=== PATIENT | female | born 1980 | race Caucasian/White ===

== ENCOUNTER 2021-04-14 17:13 | Emergency (ER) | payer MEDICAID, SELFPAY ==
[2021-04-14 18:00] VITALS: BP 145/94; PULSE 83; RESP 15; TEMP 36.9; O2SAT 96; BMI 25.7
--- NOTE | 2021-04-14 19:48 | CTR_ITS ---
PROCEDURE INFORMATION: Exam: CT Head Without Contrast Exam date and time: 04/14/2021 7:48 PM Age: 40 years old Clinical indication: Condition or disease; Convulsions or seizures; Additional info: New onset seizure TECHNIQUE: Imaging protocol: Computed tomography of the head without contrast. Sagittal and coronal reformatted images were created and reviewed. Radiation optimization: All CT scans at this facility use at least one of these dose optimization techniques: automated exposure control; mA and/or kV adjustment per patient size (includes targeted exams where dose is matched to clinical indication); or iterative reconstruction. COMPARISON: No relevant prior studies available. RADIATION DOSE METRICS: Total DLP (mGy-cm): 780.22 FINDINGS: Brain: No acute intracranial hemorrhage. No acute infarct. No intra-axial or extra-axial masses. Augustine-white matter differentiation is preserved. No cerebral edema. No extra-axial fluid collections. No midline shift. No evidence for Chiari 1 malformation. Cerebral ventricles: No hydrocephalus. Paranasal sinuses: Visualized paranasal sinuses are clear. Mastoid air cells: Visualized mastoid air cells are clear. Orbital cavity: No acute abnormality in the visualized orbits. Bones/joints: No acute fracture. Soft tissues: The extracranial soft tissues are unremarkable. CT/CT head wo con* [id number] IMPRESSION: No acute abnormality of the brain. Radiation Dose CTDIVOL = (mGy): DLP = 780.22 (mGy-cm)
--- NOTE | 2021-04-15 00:02 | W.ED.SEIZURE ---
HPI - Seizure General: Chief Complaint: Seizure Stated Complaint: SEIZURE: NO PRIOR HX OF SEIZURE Time Seen by Provider: 04/15/21 00:02 History of Present Illness: HPI Narrative: Ms Felix Is a 40-year-old lady without significant past medical history presents emerge department due to seizure-like episode. She reports feeling shaky for a number of months now however has never had seizure. She endorses having visual changes in the more couple the ground. She does endorse a history of alcohol abuse, last drink was yesterday afternoon. She drinks about a pint a day and has realized that this is a problem for her. She has poor p.o. intake due to current nausea, she has chronic diarrhea. She also endorses some mild right upper quadrant abdominal pain. She does have a history of hepatitis C though reports negative viral load and was told that she had spontaneous clearance. She denies any pain from fall, no other significant changes health noted. No history of similar. Review of Systems General: Reports: 10 or more systems reviewed and unremarkable except in HPI and below Narrative: CONSTITUTIONAL: See HPI EYES - denies pain, denies loss of vision EARS - denies ear issues. NOSE - denies congestion or rhinorrhea. THROAT - denies sore throat or difficulty swallowing. CARDIOVASCULAR - denies chest pain and palpitations RESPIRATORY - denies shortness of breath and cough GASTROINTESTINAL -see HPI GENITOURINARY - denies dysuria or urinary frequency MUSCULOSKELETAL- denies deformity or pain SKIN - denies rashes or new changed skin lesions NEUROLOGIC -see HPI HEMATOLOGIC/LYMPHATIC - denies easy bruising or lymphadenopathy. Physical Exam Narrative: EXAM NARRATIVE: GENERAL/CONSTITUTIONAL - well-appearing. No acute distress. Eyes - PERRL, no conjunctival injection ENMT - Atraumatic external nose and ears. Moist mucous membranes NECK - supple. trachea midline CARDIOVASCULAR - regular rate and rhythm. RESPIRATORY -clear to auscultation bilaterally. No retractions or accessory muscle use. ABDOMEN/GI - Nontender/Nondistended. No tenderness to percussion or evidence of peritonitis MSK - Extremities without obvious deformity or tenderness to palpation SKIN - Warm, Dry NEURO - alert and appropriately oriented. strength and sensation intact. Moves all extremities equally. Mild symmetric bilateral tremor. PSYCH - Appropriate mood and affect Course ED course: - Patient was seen and evaluated by me at bedside - Patient placed on cardiac monitors, IV access obtained - Initial evaluation notable for no acute distress, nontoxic appearance. Patient is not tachycardic or hypertensive, mild tremor noted. -Symptom treatment ordered - Labs notable for no leukocytosis, no significant metabolic abnormality to explain his seizures. - Imaging notable for negative head CT - Upon serial reexamination after treatment the patient was improved, repeat CIWA 6. - Based on patient history, evaluation, labs, and imaging as interpreted the most likely cause of the patient's condition is alcohol withdrawal related seizure without continued withdrawal symptoms requiring hospitalization - The results of ED evaluation were discussed with the patient including prescriptions and/or symptomatic cares (if applicable) including appropriate and responsible use, followup plan, and return precautions. The patient verbalized understanding and felt safe for discharge. - Patient discharged in satisfactory condition. Vital Signs: Vital signs: Vital Signs Temperature 98.4 F 04/14/21 18:00 Pulse Rate 95 04/15/21 04:06 Respiratory Rate 17 04/15/21 04:06 Blood Pressure 129/97 04/15/21 04:06 Pulse Oximetry 100 04/15/21 04:06 MDM - Seizure Medical Records: Attestation: I reviewed the patient's medical records. Lab Data: Attestation: I reviewed the patient's lab results. Labs: Lab Results 04/15/21 04/15/21 04/15/21 Range/Units 00:41 00:41 02:08 WBC 7.8 (4.0-10.0) 10^3/ uL RBC 4.04 L (4.1-5.3) 10^6/u L Hgb 13.8 (11.5-15.3) g/dL Hct 40.7 (37.0-47.0) % MCV 100.7 H (81-99) fl MCH 34.2 H (28.0-34.0) pg MCHC 33.9 (30.0-36.0) g/dL RDW 13.5 (12.1-15.1) % Plt Count 189 (130-400) 10^3/c mm MPV 10.7 H (7.4-10.4) fL Neut % (Auto) 80.0 % Lymph % (Auto) 10.3 % [place] % (Auto) 8.8 % Eos % (Auto) 0.1 % Baso % (Auto) 0.5 % Neut # (Auto) 6.26 (1.8-7.7) 10^3/u L Lymph # (Auto) 0.8 (0.8-4.8) 10^3/u L [place] # (Auto) 0.7 (0.2-0.9) 10^3/u L Eos # (Auto) 0.0 (0.0-0.8) 10^3/u L Baso # (Auto) 0.0 (0.0-0.1) 10^3/u L Nucleated RBC % (a uto) 0 % Nucleated RBCs # 0.0 /100WBC Sodium 136 (136-145) mmol/L Potassium 3.9 (3.5-5.1) mmol/L Chloride 96 L (98-107) mmol/L Carbon Dioxide 24 (22-29) mmol/L Anion Gap 19.9 H (5-19) BUN 6 (6-20) mg/dL Creatinine 0.4 L (0.5-0.9) mg/dL GFR Calculation 175.9 H (90-130) mL/min Glucose 83 (65-115) mg/dL Calculated Osmolal ity 279 L (285-295) mOsm/k g Calcium 9.1 (8.5-10.5) mg/dL Magnesium 1.9 (1.7-2.3) mg/dL Total Bilirubin 0.7 (0.15-1.2) mg/dL AST 139 H (0-32) U/L ALT 112 H (0-33) U/L Alkaline Phosphata se 62 (35-105) IU/L Total Protein 7.3 (6.6-8.7) g/dL Albumin 4.4 (3.5-5.2) g/dL Globulin 2.9 (1.3-4.6) g/dL TSH 2.65 (0.27-4.20) uIU/ mL HCG, Qual Negative (Negative) Urine Color (Yellow) Urine Appearance (CLEAR) Urine pH (5-7) Ur Specific Gravit y (1.005-1.030) Urine Protein (Negative) Urine Glucose (UA) (Normal) Urine Ketones (Negative) Urine Blood (Negative) Urine Nitrate (Negative) Urine Bilirubin (Negative) Urine Urobilinogen (Negative) mg/dL Ur Leukocyte Luz ase (Negative) Urine RBC (0-2) /hpf Urine WBC (0-5) /hpf Ur Squamous Epith Cells (0-5) /hpf Amorphous Sediment Urine Bacteria (NONE) /hpf Urine Mucus /hpf 04/15/21 Range/Units 02:08 WBC (4.0-10.0) 10^3/ uL RBC (4.1-5.3) 10^6/u L Hgb (11.5-15.3) g/dL Hct (37.0-47.0) % MCV (81-99) fl MCH (28.0-34.0) pg MCHC (30.0-36.0) g/dL RDW (12.1-15.1) % Plt Count (130-400) 10^3/c mm MPV (7.4-10.4) fL Neut % (Auto) % Lymph % (Auto) % [place] % (Auto) % Eos % (Auto) % Baso % (Auto) % Neut # (Auto) (1.8-7.7) 10^3/u L Lymph # (Auto) (0.8-4.8) 10^3/u L [place] # (Auto) (0.2-0.9) 10^3/u L Eos # (Auto) (0.0-0.8) 10^3/u L Baso # (Auto) (0.0-0.1) 10^3/u L Nucleated RBC % (a uto) % Nucleated RBCs # /100WBC Sodium (136-145) mmol/L Potassium (3.5-5.1) mmol/L Chloride (98-107) mmol/L Carbon Dioxide (22-29) mmol/L Anion Gap (5-19) BUN (6-20) mg/dL Creatinine (0.5-0.9) mg/dL GFR Calculation (90-130) mL/min Glucose (65-115) mg/dL Calculated Osmolal ity (285-295) mOsm/k g Calcium (8.5-10.5) mg/dL Magnesium (1.7-2.3) mg/dL Total Bilirubin (0.15-1.2) mg/dL AST (0-32) U/L ALT (0-33) U/L Alkaline Phosphata se (35-105) IU/L Total Protein (6.6-8.7) g/dL Albumin (3.5-5.2) g/dL Globulin (1.3-4.6) g/dL TSH (0.27-4.20) uIU/ mL HCG, Qual (Negative) Urine Color Yellow (Yellow) Urine Appearance Clear (CLEAR) Urine pH 7 (5-7) Ur Specific Gravit y 1.010 (1.005-1.030) Urine Protein Trace (Negative) Urine Glucose (UA) Norm (Normal) Urine Ketones 2+ H (Negative) Urine Blood Neg (Negative) Urine Nitrate Negative (Negative) Urine Bilirubin Neg (Negative) Urine Urobilinogen 1 H (Negative) mg/dL Ur Leukocyte Luz ase Negative (Negative) Urine RBC 0-4 H (0-2) /hpf Urine WBC 0-4 H (0-5) /hpf Ur Squamous Epith Cells 5-10 H (0-5) /hpf Amorphous Sediment Not Reportable Urine Bacteria Trace (NONE) /hpf Urine Mucus 2+ /hpf Discharge Plan Discharge Patient Disposition: Home Clinical Impression: Seizure, Alcohol abuse Condition: Stable Prescriptions: New chlordiazepoxide HCl 25 mg capsule See Rx Instructions .ROUTE .COMPLEX Qty: 15 RF: 0 Discharge Orders: Discharge ED (Routine); Ordered 04/15/21 Ordered By: Linus Kent Discharge Diet: Usual diet Discharge Activity: Resume usual activity Patient Instructions: Alcohol Withdrawal (ED), New-Onset Seizure in Adults (ED) Activity Restrictions/Additional Instructions: Thank you for visiting the emergency department. You were seen and evaluated for new onset seizure. Based on clinical history the most likely cause is related to alcohol withdrawal. Alcohol abuse is a complex problem. You will be given a prescription for medications to help with your symptoms. Please follow-up with your primary care provider. Please avoid further alcohol use. Please do not perform any dangerous activity including driving, swimming, cooking over flames, climbing tall objects, or anything else that would put you at risk if he were to have another seizure. Please return to the emergency department for anything that you are concerned about and feel needs emergency department evaluation. Coding Level of Care Code ED Topper Press Operator Automatic for Tracey Rodriguez
[2021-04-15] MEDS: LORazepam 2 mg/mL INJ 1 mL 1 MG IVP (00:43)
[2021-04-15] MEDS: sodium chloride 0.9% 1,000 ML 999 ML IV (00:45)
[2021-04-15 00:47] VITALS: BP 128/89; PULSE 87; RESP 18; O2SAT 98
[2021-04-15 01:04] LABS: Basophils % 0.5 %; Eosinophils % 0.1 %; Hematocrit 40.7 % (37.0-47.0); Hemoglobin 13.8 g/dL (11.5-15.3); Lymphocytes # 0.8 10^3/uL (0.8-4.8); Lymphocytes % 10.3 %; Mean Corpuscular HGB Conc 33.9 g/dL (30.0-36.0); Mean Corpuscular Hemoglobin 34.2 pg (28.0-34.0); Mean Corpuscular Volume 100.7 fl (81-99); Mean Platelet Volume 10.7 fL (7.4-10.4); Monocytes # 0.7 10^3/uL (0.2-0.9); Monocytes % 8.8 %; Neutrophils # 6.26 10^3/uL (1.8-7.7); Nucleated Red Blood Cells % 0 %; Platelet Count 189 10^3/cmm (130-400); Red Blood Count 4.04 10^6/uL (4.1-5.3); Red Cell Distribution Width 13.5 % (12.1-15.1); White Blood Count 7.8 10^3/uL (4.0-10.0)
[2021-04-15 01:34] LABS: Alanine Aminotransferase 112 U/L (0-33); Albumin Level 4.4 g/dL (3.5-5.2); Alkaline Phosphatase 62 IU/L (35-105); Aspartate Amino Transferase 139 U/L (0-32); Blood Urea Nitrogen 6 mg/dL (6-20); Calcium 9.1 mg/dL (8.5-10.5); Carbon Dioxide 24 mmol/L (22-29); Chloride 96 mmol/L (98-107); Globulin 2.9 g/dL (1.3-4.6); Glomerular Filtration Rate 175.9 mL/min (90-130); Glucose 83 mg/dL (65-115); Magnesium 1.9 mg/dL (1.7-2.3); Osmolality Calculated 279 mOsm/kg (285-295); Sodium 136 mmol/L (136-145); Thyroid Stimulating Hormone 2.65 uIU/mL (0.27-4.20); Total Bilirubin 0.7 mg/dL (0.15-1.2); Total Protein 7.3 g/dL (6.6-8.7)
[2021-04-15 01:41] LABS: Anion Gap 19.9 (5-19); Potassium 3.9 mmol/L (3.5-5.1)
[2021-04-15 02:17] LABS: HCG Qualitative Urine. Negative (Negative); Urine Appearance Clear (CLEAR); Urine Color Yellow (Yellow); pH Urine 7 (5-7)
[2021-04-15 02:18] LABS: Add Urine Microscopic? YES; Bilirubin Urine Neg (Negative); Blood Urine Neg (Negative); Glucose Urine UA Norm (Normal); Ketones Urine 2+ (Negative); Leukocyte Esterase Urine Negative (Negative); Nitrate Urine Negative (Negative); Protein Urine Trace (Negative); Urobilinogen Urine 1 mg/dL (Negative)
[2021-04-15 02:36] LABS: Add Urine Culture? No; Bacteria Urine TRACE /hpf; Mucus Urine 2+ /hpf; RBC Urine 0-4 /hpf (0-2); WBC Urine 0-4 /hpf (0-5)
[2021-04-15] MEDS: folic acid 1 MG, multivitamin inj 10 ML, thiamine 100 MG in sodium chloride 0.9% 1,000 ML 252.8 MG IV (02:57)
[2021-04-15 03:01] VITALS: BP 129/80; PULSE 81; RESP 17; O2SAT 98
[2021-04-15 04:06] VITALS: BP 129/97; PULSE 95; RESP 17; O2SAT 100
== END 2021-04-15 04:06 | disposition home or self-care (01) ==
PROVIDERS: Emergency Provider Emergency Medicine
DX: R56.9 Unspecified convulsions (principal); F10.10 Alcohol abuse, uncomplicated
CPT/HCPCS: 70450; 80053; 81001; 81025; 83735; 84443; 85025; 96361; 96374; 99284; J2060; J3411; J3490; J7030

== ENCOUNTER 2021-11-26 20:34 | Emergency (ER) | payer MEDICAID, SELFPAY ==
[2021-11-26 20:20] VITALS: BP 107/48; PULSE 67; RESP 16; TEMP 36.7; O2SAT 100; BMI 24.0
--- NOTE | 2021-11-26 20:22 | ED_ITS ---
HPI - Allergic Reaction General: Chief complaint: Allergic Reaction Stated complaint: allergic rxn History of Present Illness: HPI narrative: Ms Felix is a 41-year-old lady without significant past medical history presents to the emergency department due to allergic reaction/anaphylaxis. She reports being at her baseline health the past few days. She does not know any specific exposure other than possible insect bite. Earlier this afternoon she noticed a small red bite on her leg. She subsequently developed spreading of the small bites followed by hives which were itchy and spread about her body. Additionally she felt some shortness of breath and generalized malaise. She went to stand and had syncope. EMS found the patient with signs consistent with anaphylaxis including low blood pressure and new oxygen requirement. She was administered Benadryl, epinephrine, and IV fluids with improvement in symptoms. Symptom intensity is currently mild but was severe and maximal. She denies history of anaphylaxis/severe allergic reaction in the past. No new environmental exposures otherwise. No other specific changes in health, exacerbating, or alleviating factors identified. Onset (ago): hour(s) Exposure: unknown Treatment prior to arrival: benadryl, epinephrine and IV fluids Review of Systems General: Reports: 10 or more systems reviewed and unremarkable except in HPI and below PFSH ED PFSH: Medical History No significant past medical history Surgical History No significant past surgical history Social History Smoking and tobacco status: current every day smoker Physical Exam Const: COMMON NORMALS: alert GENERAL APPEARANCE: cooperative, well developed and ill appearing (mildly); not in distress HENMT: COMMON NORMALS: normocephalic and atraumatic HEAD & SCALP: normocephalic and atraumatic THROAT: posterior oropharynx normal Eye: COMMON NORMALS: conjunctivae normal CONJUNCTIVA: Yes conjunctivae normal SCLERA: sclerae normal Neck/C-Spine: COMMON NORMALS: supple GENERAL: Yes trachea midline Resp: COMMON NORMALS: normal respiratory effort EFFORT & INSPECTION: Yes able to speak in complete sentences AUSCULTATION: diminished lung sounds (mildly) Cardio: COMMON NORMALS: regular rate and regular rhythm RATE: regular rate RHYTHM: regular rhythm GI: COMMON NORMALS: Soft to palpation PALPATION: Yes Soft to palpation and No Tenderness to palpation present (GI) PERCUSSION: normal to percussion Extremity: GENERAL: Yes normal exam except as noted and No edema Neuro: COMMON NORMALS: moves all extremities SENSORIUM/ORIENTATION: Yes alert and No Orientation impaired Psych: COMMON NORMALS: mental status grossly normal and Normal thought process present THOUGHT PROCESS: Normal thought process present Skin: COMMON NORMALS: no rashes or lesions noted GENERAL SKIN EXAM: no rashes or lesions noted Course ED course: - Patient was seen and evaluated by me at bedside - Patient placed on cardiac monitors, IV access obtained - Initial evaluation notable for exam as above, improved - additional allergic rxn treatment ordered - Imaging notable for no lobar consolidation or pneumothorax - Upon serial reexamination after treatment the patient was improved. She did have fairly significant somnolence related to Benadryl and given reported history of fall secondary to likely hypotension a head CT was ordered which was negative for acute traumatic injury. - Patient observed without recurrance or worsening of symptoms - Based on patient history, evaluation, and testing as interpreted the most likely cause of the patient's condition is anaphylaxis - The results of ED evaluation were discussed with the patient including prescriptions and/or symptomatic cares (if applicable) including appropriate and responsible use, followup plan, and return precautions. The patient verbalized understanding and felt safe for discharge. - Patient discharged in satisfactory condition. Note: Click bubbles or prepopulated berg in note writing are used for assistance with data collection and billing and are inherently more limited than narrative and other text portions of this note. Please use narrative for additional clinical history and defer to narrative/free test for any case of contradictory information. If information appears in only free text or click bubble it should be considered present or absent as reported. Please contact note policy writer sales for clarifications of clinical information or contradictory information. MDM is a brief summary, contradictory or erroneous seeming information should be clarified and full note should be reviewed. Vital Signs: Vital signs: Vital Signs Temperature 98.0 F 11/26/21 20:20 Pulse Rate 75 11/27/21 00:16 Respiratory Rate 16 11/27/21 00:16 Blood Pressure 97/58 11/27/21 00:16 Pulse Oximetry 97 11/27/21 00:16 MDM - Allergic Reaction Medical Decision Making 41-year-old lady without significant history presenting due to anaphylaxis patient was improved from EMS treatment. No recurrence during ED observation. Family will watch closely and satisfactory for discharge with strict return precautions. Medical Records I reviewed the patient's medical records. Lab Data I reviewed the patient's lab results. Radiology Impressions Chest X-Ray 11/26/21 20:41 IMPRESSION: No acute abnormality demonstrated. Head CT 11/26/21 22:52 IMPRESSION: No evidence of acute intracranial abnormality. Discharge Plan Discharge Patient Disposition: Home Clinical Impression: Anaphylaxis Prescriptions: New EpiPen 0.3 mg/0.3 mL auto-injector 0.3 mg IM Q10M PRN (Reason: anaphylaxis) Qty: 2 2RF Rx Instructions: for 2 doses Benadryl 25 mg capsule 50 mg PO Q8H PRN (Reason: allergic reaction) Qty: 30 0RF No Action chlordiazepoxide HCl 25 mg capsule See Rx Instructions .ROUTE .COMPLEX Qty: 15 0RF Rx Instructions: Day 1: 50mg every 6 hrs Day 2: 25mg every 6 hrs Day 3: 25mg every 12 hrs Day 4: 25mg at night Discharge Orders: Discharge ED (Routine); Ordered 11/26/21 Ordered By: Linus Kent Discharge Diet: Usual diet Discharge Activity: Resume usual activity Patient Instructions: Epinephrine (By injection), Anaphylaxis (ED) Activity Restrictions/Additional Instructions: Thank you for visiting the emergency department. You were seen and evaluated for anaphylaxis. The exact cause of your allergic reaction is unclear. As discussed, you will be given a prescription for steroids and Pepcid, please take these as directed, if you still have allergy symptoms on top of this you may use Benadryl as needed. I will also prescribe an EpiPen autoinjector, please use this for anaphylaxis. Anaphylaxis is typically defined as severe allergic reaction involving more than 1 system or rapidly/severe spreading systems. Examples would be difficulty breathing as well as rash or nausea and vomiting with rash or a combination of multiple symptoms. Please follow-up with your primary care provider. Return to the emergency department for recurrent allergic reactions, worsening symptoms, or anything else that you are concerned about and feel needs emergency department evaluation. Coding Level of Care Code ED Senior Biostatistician for Tracey Rodriguez
[2021-11-26 20:34] VITALS: BP 106/58; PULSE 81; RESP 17; O2SAT 98
--- NOTE | 2021-11-26 20:41 | XRR_ITS ---
PROCEDURE INFORMATION: Exam: XR Chest Exam date and time: 11/26/2021 8:56 PM Age: 41 years old Clinical indication: Shortness of breath; Additional info: SOB TECHNIQUE: Imaging protocol: XR of the chest. Views: 1 view. COMPARISON: CR Scoliosis 4-5 views [id number] 08/30/2018 11:59 AM FINDINGS: Lungs: No significant or acute findings. No consolidation. Pleural spaces: No significant costophrenic angle blunting. No pneumothorax. Heart/Mediastinum: Heart size is normal. Bones/joints: Mild S-shaped thoracolumbar scoliosis. XR/XR chest 1V portable [id number] IMPRESSION: No acute abnormality demonstrated.
[2021-11-26] MEDS: famotidine 20 mg/2 mL INJ 40 MG IVP (21:08)
[2021-11-26 21:12] VITALS: BP 105/49; PULSE 74; RESP 15; O2SAT 96
--- NOTE | 2021-11-26 22:52 | CTR_ITS ---
PROCEDURE INFORMATION: Exam: CT Head Without Contrast Exam date and time: 11/26/2021 11:08 PM Age: 41 years old Clinical indication: Syncope and collapse; Patient HX: Syncopal episode. ; Additional info: Syncope, fell and hit face TECHNIQUE: Imaging protocol: Computed tomography of the head without contrast. Radiation optimization: All CT scans at this facility use at least one of these dose optimization techniques: automated exposure control; mA and/or kV adjustment per patient size (includes targeted exams where dose is matched to clinical indication); or iterative reconstruction. COMPARISON: CT head wo con* [id number] 04/14/2021 8:07 PM RADIATION DOSE METRICS: Total DLP (mGy-cm): 809.31 FINDINGS: Brain: No acute abnormality. No edema or mass effect. No hemorrhage. Cerebral ventricles: No acute abnormality. No significant ventriculomegaly. Paranasal sinuses: No significant or acute abnormality. No air-fluid levels. Mastoid air cells: No acute abnormality. No significant mastoid effusion. Bones/joints: No acute osseous abnormality. No acute fracture. Soft tissues: No significant soft tissue abnormalities. CT/CT head wo con* [id number] IMPRESSION: No evidence of acute intracranial abnormality.
[2021-11-26 22:56] VITALS: PULSE 68; RESP 18; O2SAT 96
[2021-11-26] MEDS: ipratropium-albuterol 3 mL Neb INHALATION (22:56)
[2021-11-26 22:59] VITALS: PULSE 69
[2021-11-26 23:24] VITALS: BP 99/51; PULSE 62; RESP 15; O2SAT 95
[2021-11-27 00:16] VITALS: BP 97/58; PULSE 75; RESP 16; O2SAT 97
== END 2021-11-27 00:32 | disposition home or self-care (01) ==
PROVIDERS: Emergency Provider Emergency Medicine
DX: T78.2XXA Anaphylactic shock, unspecified, initial encounter (principal); F17.210 Nicotine dependence, cigarettes, uncomplicated
CPT/HCPCS: 70450; 71045; 94640; 96374; 96375; 99284; J2930; J3490

== ENCOUNTER 2022-07-25 13:25 | Outpatient (CLI) | payer MEDICAID, SELFPAY ==
--- NOTE | 2022-07-25 | USCV_ITS ---
Kailyn Felix Age: 42 Gender: F : 1980 Exam Date: 07/25/2022 14:45 Ordering Phys: Arsalan Paul MD Technologist: Exam Location: [facility] [place] Indication: pain in legs RIGHT LEFT Brachial 125.00 mmHg Brachial 121.00 mmHg Pressure (mmHg) Waveform Pressure (mmHg) Waveform 125.00 GLASS OR MIRROR INSPECTOR 140.00 135.00 DPA 1.04 1.34 Ankle/Brachial Index 1.12 168.00 Pre-Exercise Toe Pressure 118.00 FINDINGS Resting JEREMY of 1.34 on the right and 1.12 on the left CONCLUSIONS Normal resting ABIs bilaterally No significant arterial obstruction, based on the above findings. Dr Flaco Cano MD [facility] (Electronically Signed) Final Date: 28 July 2022 10:19 S
== END 2022-07-25 13:26 | disposition home or self-care (01) ==
LOC: RAD 13:26
PROVIDERS: PCP Family Medicine; Visit Provider Family Medicine
DX: M79.604 Pain in right leg (principal); M79.605 Pain in left leg
CPT/HCPCS: 93922

== ENCOUNTER → 2023-02-17 11:12 | Outpatient (BNVA) | payer MEDICAID, SELFPAY | PROVIDERS: PCP Nurse Practitioner Family; Visit Provider Nurse Practitioner Family | DX: R56.9 Unspecified convulsions (principal) | CPT/HCPCS: 80053; 80061; 84443; 85025 ==

== ENCOUNTER 2023-02-23 08:48 | Outpatient (CLI) | payer MEDICAID, SELFPAY ==
--- NOTE | 2023-02-23 08:57 | MR_ITS ---
WS: [id number] MRI RIGHT KNEE HISTORY: PATELLOFEMORAL STRESS SYNDROME COMPARISON: None available. Anterior cruciate ligament: Intact. Posterior cruciate ligament: Intact. Medial collateral ligament: Intact. Posterior lateral corner structures: Intact. Medial menisci: Intact. Normal signal, size and shape. Lateral meniscus: Intact. Normal signal, size and shape. Extensor mechanism: Distal quadriceps tendon and patellar tendons are intact. Fluid and soft tissue: No joint effusion. Small Benitez's cyst. Osseous and articular structures: Patellofemoral compartment: Mild chondromalacia patella, greatest involving the medial patella. There is near small complete full-thickness defect in the cartilage over the medial patellar facet. No mar row edema. Medial compartment: No significant narrowing or loss of cartilage. Very minimal hypertrophic osteophy omari along the joint line. Lateral compartment: No significant narrowing or loss of cartilage. Minimal hypertrophic osteophytes at the joint line. Very small, slightly lobulated cystic mass associated with the popliteus tendon. May represent a smal l ganglion measuring 12 mm versus popliteal cyst. MR/MR knee RT wo con* [id number] IMPRESSION: 1. No significant osteoarthritic changes involving the joint spaces. 2. Small Benitez's cyst and small popliteus tendon ganglion versus cyst. 3. Mild chondromalacia patella, greatest along the medial facet.
== END 2023-02-23 08:49 | disposition home or self-care (01) ==
PROVIDERS: PCP Nurse Practitioner Family; Visit Provider Family Medicine
DX: M22.2X1 Patellofemoral disorders, right knee (principal); M71.21 Synovial cyst of popliteal space [Baker], right knee; M22.41 Chondromalacia patellae, right knee
CPT/HCPCS: 73721

== ENCOUNTER → 2023-02-27 11:17 | Outpatient (BNVA) | payer MEDICAID, SELFPAY | PROVIDERS: PCP Nurse Practitioner Family; Visit Provider Nurse Practitioner Family | DX: R39.9 Unspecified symptoms and signs involving the genitourinary system (principal) | CPT/HCPCS: 81003; 87077; 87086; 87184 ==

== ENCOUNTER → 2023-03-19 08:57 | Outpatient (BNVA) | payer MEDICAID, SELFPAY | PROVIDERS: PCP Nurse Practitioner Family; Visit Provider Nurse Practitioner Family | DX: N39.0 Urinary tract infection, site not specified (principal); R79.89 Other specified abnormal findings of blood chemistry | CPT/HCPCS: 80053; 81000; 85025 ==

== ENCOUNTER → 2023-03-26 11:48 | Outpatient (BNVA) | payer MEDICAID, SELFPAY | PROVIDERS: PCP Nurse Practitioner Family; Visit Provider Nurse Practitioner Family | DX: R79.89 Other specified abnormal findings of blood chemistry (principal) | CPT/HCPCS: 86705; 86706; 86709; 86803; 87340; 87522; 87902 ==

== ENCOUNTER → 2023-04-01 10:42 | Outpatient (BNVA) | payer MEDICAID, SELFPAY | PROVIDERS: PCP Nurse Practitioner Family; Referring Provider Nurse Practitioner Family; Visit Provider Specialist | DX: M25.561 Pain in right knee (principal); M21.70 Unequal limb length (acquired), unspecified site; M41.9 Scoliosis, unspecified | CPT/HCPCS: 73560; 73565 ==

== ENCOUNTER 2023-04-03 06:01 | Outpatient (CLI) | payer MEDICAID, SELFPAY ==
--- NOTE | 2023-04-03 06:15 | US_ITS ---
WS: [id number] RIGHT UPPER QUADRANT ULTRASOUND HISTORY: Abnormal blood work. COMPARISON: None available. Liver: 15.0 cm in length. Normal size liver and echogenicity. No bile duct dilatation or mass. Portal Vein: Normal hepatopetal flow with monophasic waveform. Gallbladder: Normally distended gallbladder with no stones or wall thickening. CBD: 0.5 cm Pancreas: Normal size and echogenicity. Right kidney: 10.4 cm in length. Normal size and echogenicity. No hydronephrosis or mass. Aorta and IVC: Unremarkable abdominal aorta and IVC. No ascites. IMPRESSION: Normal RIGHT upper quadrant ultrasound.
== END 2023-04-03 06:02 | disposition home or self-care (01) ==
LOC: RAD 06:02
PROVIDERS: PCP Nurse Practitioner Family; Visit Provider Nurse Practitioner Family
DX: R79.89 Other specified abnormal findings of blood chemistry (principal)
CPT/HCPCS: 76705

== ENCOUNTER 2023-06-16 09:50 | Outpatient (CLI) | payer MEDICAID, SELFPAY ==
--- NOTE | 2023-06-16 10:15 | MR_ITS ---
WS: [id number] MRI BRAIN WITH AND WITHOUT CONTRAST HISTORY: R56.9 - Unspecified convulsions COMPARISON: Noncontrast CT head 11/26/2021. TECHNIQUE: Multiplanar imaging performed through the brain with MultiHance 14 ml's IV. Significant motion artifact. No acute infarcts are seen. Augustine-white matter differentiation is well preserved. Normal bilateral hip pocampal formations. Mild cerebral atrophy. No susceptibility artifacts or prior lacunar infarcts. Ventricles and extra-axial spaces are normal. Clivus and pituitary gland are normal. Visualized posterior fossa and brainstem are also normal. Postcontrast images are negative for masses or vascular malformations. Dural venous sinuses are normal. Paranasal sinuses: Large lobulated mucous retention cyst in the RIGHT maxillary sinus. No air-fluid l evels. Mastoid air cells: Normal. Calvarium and scalp: Normal. IMPRESSION: 1. No acute infarct or enhancing masses. 2. Mild bilateral cerebral atrophy and hippocampal formation atrophy. 3. No prior infarcts.
[2023-06-16] MEDS: gadobenate dimeglumine 20 mL vial IV (11:00)
== END 2023-06-16 09:51 | disposition home or self-care (01) ==
LOC: RAD 09:50
PROVIDERS: PCP Nurse Practitioner Family; Visit Provider Psychiatry & Neurology Neurology
DX: R56.9 Unspecified convulsions (principal)
CPT/HCPCS: 70553; A9577

== ENCOUNTER 2023-07-14 08:05 | Outpatient (CLI) | payer MEDICAID, SELFPAY ==
--- NOTE | 2023-07-14 08:12 | XR_ITS ---
WS: [id number] Exam: XR bone length study [id number] Date/Time of Exam: 07/14/2023 8:28 AM Reason For Exam: leg length discrepency Bilateral leg length approximately 81 cm. Apparent leg length discrepancy probably due to advanced de generation of the RIGHT hip joint with [id number]. This causes pelvic tilt with the RIGHT side lowe r than the LEFT. There is also considerable lateral subluxation of the RIGHT femoral head from the ac etabulum which may also account for perceived leg length discrepancy. IMPRESSION: 1. No significant leg length discrepancy identified. Both lower extremities measured from the hip to the ankle are about 81 cm in length. 2. Perceived leg length discrepancy likely due to degeneration of the RIGHT hip. See above discussion .
== END 2023-07-14 08:06 | disposition home or self-care (01) ==
LOC: RAD 08:06
PROVIDERS: PCP Nurse Practitioner Family; Visit Provider Specialist
DX: M21.70 Unequal limb length (acquired), unspecified site (principal); M16.11 Unilateral primary osteoarthritis, right hip
CPT/HCPCS: 77073

== ENCOUNTER → 2023-09-02 17:51 | Outpatient (BNVA) | payer MEDICAID, SELFPAY | PROVIDERS: PCP Nurse Practitioner Family; Visit Provider Family Medicine | DX: J02.9 Acute pharyngitis, unspecified (principal) | CPT/HCPCS: 87071; 87880 ==

== ENCOUNTER → 2023-09-21 12:48 | Outpatient (BNVA) | payer MEDICAID, SELFPAY | PROVIDERS: PCP Nurse Practitioner Family; Visit Provider Nurse Practitioner Family | DX: J02.9 Acute pharyngitis, unspecified (principal) | CPT/HCPCS: 87880 ==

== ENCOUNTER → 2023-10-08 09:53 | Outpatient (BNVA) | payer MEDICAID, SELFPAY | PROVIDERS: PCP Nurse Practitioner Family; Visit Provider Nurse Practitioner | DX: M16.11 Unilateral primary osteoarthritis, right hip (principal) | CPT/HCPCS: 73502 ==

== ENCOUNTER → 2023-10-19 10:21 | Outpatient (BNVA) | payer MEDICAID, SELFPAY | PROVIDERS: PCP Nurse Practitioner Family; Visit Provider Nurse Practitioner Family | DX: Z01.818 Encounter for other preprocedural examination (principal); R05.9 Cough, unspecified | CPT/HCPCS: 71046; 80053; 81000; 85025 ==

== ENCOUNTER → 2023-11-17 14:56 | Outpatient (BNVA) | payer MEDICAID, SELFPAY | PROVIDERS: PCP Nurse Practitioner Family; Visit Provider Family Medicine | DX: Z01.818 Encounter for other preprocedural examination (principal) | CPT/HCPCS: 80053; 81003; 85025 ==

== ENCOUNTER 2023-11-26 14:40 | Inpatient (IN) | payer MEDICAID, SELFPAY ==
[2023-11-26] VITALS (18 sets, daily range): BP systolic 120–164; BP diastolic 77–125; PULSE 73–104; RESP 11–20; TEMP 36.1–36.8; O2SAT 92–100; BMI 24.0; BMI 25.9
[2023-11-26] MEDS: acetaminophen 1,000 MG/100 ML PIGGYBACK 400 MG IV ×3 (09:36→21:51)
--- NOTE | 2023-11-26 09:37 | W.PM.OPSUD ---
Surgery/Procedure H&P Update DATE OF PROCEDURE: November 26, 2023 DATE H&P PERFORMED: 11/17/23 H&P UPDATE INFORMATION: I have reviewed H&P completed within last 30 days, I have examined patient prior to procedure, No changes to prior documentation and H&P is in [facility] EMR on date indicated PLANNED PROCEDURE: Operation Date: 11/26/23 10:35 Proposed Procedures p Total Hip Arthroplasty(Right) - Sonal Crook MD Related Problem List Diagnoses (1) Primary osteoarthritis of right hip:
[2023-11-26] MEDS: sodium chloride 0.9% 1,000 ML 30 ML IV (09:41)
[2023-11-26] MEDS: gabapentin 300 mg Capsule PO (09:41)
[2023-11-26] MEDS: CELEcoxib 200 mg Capsule 400 MG PO (09:41)
--- NOTE | 2023-11-26 10:01 | ANES.PREANE2 ---
Pre-Anesthetic Assessment Height/Weight: Height 1.63 m Weight 63.503 kg O2 Del Method Room Air 11/26/23 09:15 Operation Date: 11/26/23 10:35 Proposed Procedures p Total Hip Arthroplasty(Right) - Sonal Crook MD Familial anesthetic complications: none Was Beta Mirella taken within 24 hours: N/A Was Clonidine taken within 24 hours: N/A Last intake: Intake Last Liquid Date 11/25/23 Last Liquid Time 23:55 Last Solid Date 11/25/23 Last Solid Time 12:00 Social Tobacco and No alcohol Exam alert, oriented x 3, clear to auscultation bilaterally and regular rate & rhythm Airway Mallampati: Class I Dentition: chipped and caps CV/HEM Hypertension GI Gastroesophageal Reflux Disease Metabolic Hyperlipidemia Neuropsych Seizure Anesthetic Plan ASA status: 3 Anesthesia: Regional (specify below) Risk of > 500 ml blood loss (7ml/kg in children): Yes, adequate IV access and fluids planned Medications/Allergies Home Medications Medication Instructions Recorded Confirmed Last Taken Type epinephrine 0.3 mg/0.3 mL 0.3 mg (0.3 mL) IM Q10M PRN 11/26/21 11/25/23 Unknown Rx injection, auto-injector (EpiPen) anaphylaxis #2 ea fluticasone propionate 50 1 spray intranasal DAILY 02/17/23 11/25/23 11/25/23 05:00 History mcg/actuation nasal spray,suspension omeprazole 20 mg capsule,delayed 20 mg PO BID #60 caps 02/27/23 11/25/23 11/25/23 05:00 Rx release albuterol sulfate 90 mcg/actuation 2 puff inhalation Q6H #18 grams 03/26/23 11/25/23 Unknown Rx aerosol inhaler (Ventolin HFA) azelastine 137 mcg (0.1 %) nasal 1 spray intranasal DAILY 07/15/23 11/25/23 11/25/23 05:00 History spray aerosol atorvastatin 10 mg tablet 10 mg PO DAILY #30 tabs 09/02/23 11/25/23 11/24/23 05:00 Rx diazepam 2 mg tablet 2 mg PO BID PRN anxiety #30 tabs 09/02/23 11/25/23 Unknown Rx lisinopril 10 mg tablet 10 mg PO DAILY #30 tabs 09/02/23 11/25/23 11/25/23 05:00 Rx cetirizine 10 mg disintegrating 10 mg PO DAILY 09/17/23 11/25/23 11/25/23 05:00 History tablet sulfamethoxazole 800 1 tab PO BID 3 days #6 tabs 11/19/23 11/25/23 11/25/23 05:00 Rx mg-trimethoprim 160 mg tablet (Bactrim DS) escitalopram oxalate 20 mg tablet 10 mg PO DAILY 11/25/23 11/25/23 11/25/23 05:00 History Allergies Allergy/AdvReac Type Severity Reaction Status Date / Time No Known Allergies Allergy Verified 11/25/23 09:32 Current Medications Generic Name Dose Route Start Last Admin Trade Name Freq PRN Reason Stop Dose Admin Sodium Chloride 1,000 mls @ 30 mls/hr 11/26/23 09:15 11/26/23 09:41 Sodium Chloride 0.9% IV 11/27/23 09:14 30 mls/hr .Q24H LEXII Administration PFSH Anesthesia Medical History Encounter for pre-operative cardiovascular clearance Anxiety and depression GERD (gastroesophageal reflux disease) Hypertension Seizures Surgical History No significant past surgical history Social History Smoking and tobacco/nicotine status: current every day tobacco/nicotine user Alcohol intake: current Alcohol intake frequency: few times a month Substance/Drug Use: never Data Anesthesia Cardiac Studies: No Data to Display
[2023-11-26 10:02] LABS: OR HCG Qualitative Urine Negative (Negative)
[2023-11-26] MEDS: ceFAZolin 2,000 MG in sodium chloride 0.9% (plus) 50 ML 100 MG IV ×2 (10:11→17:55)
[2023-11-26] MEDS: tranexamic acid 1,000 mg/10mL SDV 1000 MG IV (10:45)
[2023-11-26] MEDS: ceFAZolin 1,000 mg SDV 1000 MG IRRIGATION (11:01)
[2023-11-26] MEDS: vancomycin 1,000 MG SDV 1000 MG XX (11:03)
--- NOTE | 2023-11-26 13:29 | XRR_ITS ---
PROCEDURE INFORMATION: Exam: XR Pelvis Exam date and time: 11/26/2023 1:40 PM Age: 43 years old Clinical indication: Device placement; Other: Osvaldo; Prior surgery; Surgery date: Post-operative (0-2 days); Additional info: S/P osvaldo, low ap pelvis TECHNIQUE: Imaging protocol: Radiologic exam of the pelvis. Views: 1 or 2 view. COMPARISON: CR XR hip RT 2-3V wo/w pel* [id number] 10/08/2023 9:54 AM FINDINGS: Bones/joints: Postoperative radiographs status post total right hip arthroplasty with components in expected position. Pelvic ring is grossly intact. Soft tissues: Postsurgical soft tissue edema/air in the region of the right hip. Clips noted in the pelvis. XR/XR pelvis 1-2V* [id number] IMPRESSION: 1. Postoperative radiographs status post total right hip arthroplasty with components in expected position.
--- NOTE | 2023-11-26 13:47 | P.OP_ITS ---
Operative Report Date of procedure: November 26, 2023 Pre-op diagnosis: Primary osteoarthritis right hip Post-op diagnosis: Primary osteoarthritis right hip Post-op findings: Severe osteoarthritis right hip with significant deformity to the femoral head Procedure done: Right total hip arthroplasty Implants: The Madhav total hip system with a size 52 mm by E alpha code Trident II Tritanium cluster hole acetabular shell with fixation with 2 screws, and with an MDM liner size 42 mm inner diameter by E alpha code.? A size 4 Accolade II 132? neck angle hip stem with a size 28 mm x -4 mm femoral head and a nondenominational MDM X3 insert size 28 mm x 42E Specimens removed/disposition: Synovium sent for pathology, bone disposed of Pathology: Synovium to pathology Surgeon: Sonal Crook MD Genomics Scientist: [facility] operating room technicians Anesthesia: General (Intubated, ASA 3) Estimated blood loss (mL): 300 IV fluids (mL): 1,200 Urine output (mL): 150 Complications: None Findings: Severe degenerative osteoarthritis with deformity of the femoral head and cystic changes within the acetabulum Condition: stable Disposition: PACU (With discharge to floor and subsequent pain management and rehabilitation) Brief History: This 43-year-old woman presents today for same-day surgery in the form of right total hip arthroplasty. The patient required clearance from neurology and cardiology, and she obtained these prior to this procedure today. She had worsening pain which limited her ADLs with significant reduced range of motion in that right hip. Patient had multiple anti-inflammatories without relief. X- rays demonstrated severe degenerative osteoarthritis with deformity of the femoral head. Risks and complications of surgery were discussed with the patient. Consents were signed and questions were answered. She wished to proceed. Procedure: Patient was brought to the operating theater.? She was transferred to the operating room table and subsequently administered a general anesthesia, intubated, ASA 3.? Following administration of adequate anesthesia, the patient was placed in full lateral position and held in position with a pegboard.? The patient's right lower extremity was then prepped and draped in usual fashion utilizing DuraPrep.? It was draped free.? Following prepping and draping, a surgical pause was performed.? At the time of surgical pause, we identified the site and side of surgery.? We also identified the patient and preoperative surgical markings.?The patient's operative leg was compared to the opposite leg.? Confirmation was made of equipment availability.? Additionally, the patient's preoperative IV antibiotic, Ancef 2 g, and TXA administration was confirmed as well.? X-rays were also reviewed. Following the surgical pause, an incision was made centering over the patient's greater trochanter continuing proximally and distally as necessary to allow access to the hip joint.? Dissection continued through skin and soft tissues using a scalpel, and hemostasis was obtained using electrocautery. The tensor fascia ryan was identified and incised longitudinally.? Sciatic nerve was identified and protected throughout the surgical procedure.? A Charnley U retractor was placed after the tensor fascia ryan had been incised longitudinally, and the sciatic nerve had been identified.? The hip was internally rotated, and the piriformis muscle was identified and tagged. Piriformis muscle along with the remaining short external rotators were then incised from the posterior aspect of the hip joint.? These were retracted posteriorly.? The capsule was entered in a T-type fashion with the edges being tagged, and subsequently the hip was dislocated.? The labrum was excised with further excision accomplished once the femoral head was removed.? Following hip dislocation, a femoral neck osteotomy was accomplished in the appropriate position.? The head was measured, but it was quite deformed.? We then evaluated the acetabulum. The femur was retracted anteriorly.? Soft tissues were retracted, and the labrum was removed.? Labrum was noted to be quite large and deformed. This was removed. We then began reaming.? Once the femoral head was removed, there was noted to be significant loss of cartilage over the head with the previously noted deformity and cartilage loss within the acetabulum.? We reamed to a size 51 to allow for a size 52 acetabular shell.? The acetabulum was impacted into position. As we placed a dome hole plug in position, the cup was noted to move even though it was fully seated. For this reason, we decided to place a cluster hole acetabular shell with 2 screws to better hold the cup. The MDM liner was then impacted into position with care being taken to assure it seated appropriately.? It was noted that the acetabulum matched the bony anatomy.? The cup was noted to seat nicely and had good fixation. Attention was directed to the proximal femur.? The proximal femur was lifted out of the wound.? A canal finder was passed after the box chisel.? The reamer was used to lateralize.? We then began broaching. We broached sequentially and had excellent fit and fill with the size 4 broach. ? A trial reduction was attempted with a +0 mm femoral head initially, but it was too tight to reduce. Because of this, we then placed a -4 mm femoral head. With this construct, with the final trial, the hip was noted to be stable, and leg length was felt to be equal.? The final construct included a -4 mm femoral head with the above-noted stem and acetabulum. With this in place, we had the above stabilities.? This was felt to be excellent stability. Therefore, trial components were removed after the hip was dislocated.? The size 4 Accolade II 132? neck angle stem was impacted into position without difficulty and onto this was placed a -4 mm x 28 mm femoral head which had been assembled into the MDM insert size 42E.? With a -4 mm femoral head, we had the above-noted stability.? The stem was noted to seat nicely prior to placement of the femoral head.? The wound was copiously irrigated with 20 mL of Betadine and 500 mL of normal saline mixed together.? Subsequently, we suctioned this out and irrigated the wound copiously with lactated Ringer's.? At this time, with all components in appropriate position, the hip was reduced.? Following reduction of the p rosthesis once again, we confirmed the stability of the hip.? Leg lengths were also felt to be satisfactory. Being satisfied with the prosthesis, attention was directed to closure.? Closure was accomplished with 0 Vicryl in the capsular tissues.? Piriformis was reattached with 0 Vicryl as well.? Tensor fascia ryan was closed with 0 Vicryl in an interrupted fashion.? The subcutaneous tissues were closed with combination of 0 Vicryl and 2-0 Monocryl.? Vancomycin powder and a Gelfoam thrombin mixture was placed into the wound as well.? The skin was closed with a running 3-0 STRATAFIX followed by Dermabond Prineo followed by OpSite.? The patient was placed in an abduction pillow.? She was returned the Recovery Room in a satisfactory condition and will be discharged to the floor for postoperat rob rehabilitation and pain management.? There were no complications or specimens. Related Problem List Diagnoses (1) Primary osteoarthritis of right hip:
[2023-11-26] MEDS: fentaNYL 50 mcg/mL INJ 2mL IVP (14:12)
--- NOTE | 2023-11-26 14:37 | PC.NURSE ---
1435, report given to flakita
--- NOTE | 2023-11-26 14:53 | ANE.PACU2 ---
Inpatient post-anesthesia follow up: Airway intact: Yes Vital signs: Temperature 97.4 F Pulse Rate 96 Respiratory Rate 16 Blood Pressure 143/94 Pulse Oximetry 95 Oxygen Delivery Me thod Room Air Oxygen Flow Rate 5 Fraction of Inspir ed Oxygen Hydration adequate: Yes Nausea and vomiting: No Pain level: 1 Mental status: Baseline
[2023-11-26] MEDS: ondansetron 2 mg/ML SDV 2 mL 4 MG IVP ×2 (15:04→22:09)
[2023-11-26] MEDS: gabapentin 300 mg Capsule 600 MG PO (16:40)
[2023-11-26] MEDS: CELEcoxib 200 mg Capsule PO (16:40)
[2023-11-26] MEDS: chlorhexidine gluconate 0.12% Btl 473 mL 30 ML MUCOUS MEM ×2 (16:41→21:51)
[2023-11-26] MEDS: iron polysaccharide complex 150 mg Capsule PO (17:54)
[2023-11-26] MEDS: sennosides-docusate Tablet 2 TAB PO (17:54)
[2023-11-26] MEDS: mupirocin oint 22 gm 1 APPLIC NASAL (17:54)
[2023-11-26] MEDS: pantoprazole DR 40 mg Tablet PO (17:54)
[2023-11-26] MEDS: calcium carbonate 500 mg Chew Tablet 1000 MG PO (17:55)
[2023-11-26] MEDS: sulfamethoxazole-trimeth DS 160-800 mg Tablet 1 TAB PO (17:55)
[2023-11-26] MEDS: tranexamic acid 1,000 MG/100 ML PREMIX 600 MG IV (18:50)
[2023-11-26] MEDS: oxyCODONE 5 mg IR Tab/Cap PO (19:32)
[2023-11-26] MEDS: albuterol 2.5 mg/3 mL Neb INHALATION (20:15)
[2023-11-26] MEDS: diazePAM 2 mg Tablet PO (22:08)
[2023-11-27] VITALS (10 sets, daily range): BP systolic 105–129; BP diastolic 63–78; PULSE 61–78; RESP 16–18; TEMP 36.7–36.8; O2SAT 96–98
[2023-11-27] MEDS: cetirizine 10 mg Tablet PO ×2 (00:12→08:37)
[2023-11-27] MEDS: oxyCODONE 5 mg IR Tab/Cap PO ×4 (00:12→20:53)
[2023-11-27] MEDS: ceFAZolin 2,000 MG in sodium chloride 0.9% (plus) 50 ML 100 MG IV ×2 (02:36→10:29)
[2023-11-27] MEDS: CELEcoxib 200 mg Capsule PO ×2 (02:39→14:27)
--- NOTE | 2023-11-27 02:56 | PC.NURSE ---
Patient exhibiting signs of alcohol withdrawals: anxious, nausea, vomiting, shakiness, itching sensations. Initially, upon talking to patient, patient stated she was an occasional binge drinker, and her last drink was on Thursday. Upon further questioning, patient states she drinks about a fifth of vodka once weekly, but has also told this nurse that she tends to get a little wild when her kids go to bed. Patient stated her drinking has been getting worse due to some stressors at home involving her mom and sister. [place] Protocol was activated to monitor symptoms.
[2023-11-27 05:56] LABS: Basophils % 0.4 %; Hematocrit 31.4 % (36-47); Lymphocytes # 0.6 10^3/uL (0.8-4.8); Mean Corpuscular HGB Conc 33.4 g/dL (30-55); Mean Corpuscular Hemoglobin 34.5 pg (27-33); Mean Corpuscular Volume 103.3 fl (85-98); Mean Platelet Volume 9.8 fL (7.4-10.4); Monocytes # 0.7 10^3/uL (0.2-0.9); Monocytes % 7.3 %; Neutrophils # 8.21 10^3/uL (1.8-7.7); Nucleated Red Blood Cells % 0 %; Platelet Count 199 10^3/cmm (157-399); Red Blood Count 3.04 10^6/uL (3.85-5.65); Red Cell Distribution Width 13.6 % (12.1-15.1); White Blood Count 9.55 10^3/uL (3.29-11.43)
[2023-11-27 06:06] LABS: Anion Gap 13.1 (5-19); Blood Urea Nitrogen 9 mg/dL (6-20); Calcium 8.1 mg/dL (8.5-10.5); Carbon Dioxide 30 mmol/L (22-29); Chloride 96 mmol/L (98-107); Glomerular Filtration Rate 108.6 mL/min (90-130); Glucose 144 mg/dL (65-115); Osmolality Calculated 281 mOsm/kg (285-295); Potassium 4.1 mmol/L (3.5-5.1); Sodium 135 mmol/L (136-145)
[2023-11-27] MEDS: acetaminophen 1,000 MG/100 ML PIGGYBACK 400 MG IV (06:16)
[2023-11-27] MEDS: albuterol 2.5 mg/3 mL Neb INHALATION (08:05)
[2023-11-27] MEDS: escitalopram 10 mg Tablet PO (08:36)
[2023-11-27] MEDS: calcium carbonate 500 mg Chew Tablet 1000 MG PO ×2 (08:37→17:19)
[2023-11-27] MEDS: cholecalciferol (vitamin D3) 1,000 unit Tablet 1000 UNIT PO (08:37)
[2023-11-27] MEDS: atorvastatin 40 mg Tablet PO (08:37)
[2023-11-27] MEDS: iron polysaccharide complex 150 mg Capsule PO ×2 (08:37→17:19)
[2023-11-27] MEDS: multivitamin therapeutic Tablet 1 TAB PO (08:37)
[2023-11-27] MEDS: sennosides-docusate Tablet 2 TAB PO ×2 (08:38→17:19)
[2023-11-27] MEDS: aspirin 325 mg EC Tablet PO (08:38)
[2023-11-27] MEDS: sulfamethoxazole-trimeth DS 160-800 mg Tablet 1 TAB PO ×2 (08:38→17:19)
[2023-11-27] MEDS: chlorhexidine gluconate 0.12% Btl 473 mL 30 ML MUCOUS MEM ×3 (08:39→20:54)
[2023-11-27] MEDS: mupirocin oint 22 gm 1 APPLIC NASAL ×2 (08:39→17:21)
[2023-11-27] MEDS: pantoprazole DR 40 mg Tablet PO ×2 (08:40→17:19)
[2023-11-27] MEDS: fluticasone nasal spray 16gm Btl 1 SPRAY INTRANASAL (08:40)
--- NOTE | 2023-11-27 09:15 | PC.CHAP ---
Pastoral Care Encounter/Spiritual Assessment Type of Contact [] Declined cutting machine tender helper visit [] Patient/Family/Request visit [] Outpatient visit [] Follow-up visit [] Physician referral [] Code/Alert [x] Routine visit [] Staff referral [] Actively dying [] Patient sleeping [] Family support [] [] Out of room [] Palliative care [] [] Receiving care in room [] Pre-surgical visit [] Trauma [] Long length of stay [] ICU visit [] Other: Relational/Emotional Strength [x] Patient feels connected with others/family/visitors/staff [] Distress [] Loneliness/isolation [] Abandonment Spirituality of Patient [x] Person of Yadi [x] Attends Cheondoism of their Yadi [x] Believes in Prayer [x] Reads Bible or Lutheran materials [] There are Spiritual issues to be addressed Truck Jumper Interventions [x] Prayer [x] Active listening [] Non-anxious presence [x] Spiritual/emotional support [] Crisis/trauma care [] Spiritual counseling [] Bereavement support [] Provided bereavement packet [] Provided Bible/devotional materials [] Provided toy/stuffed animal, coloring book to patient or family member [] Provided Communion [] Anointing/Mauldin [] Salvation [x] Completed spiritual assessment [] Other: Impact on Illness or Injury [] Angry [] Fearful [] Anxious [] Often cries [] Exhaustion [] Unable to work [] Unable to attend mandaeism [] Unable to walk/stand [] Unable to read [] Unable to drive [] Unable to eat/drink [] Unable to sleep [] Unable to be with family [] Patient intubated [] Other: Summary Time spent with patient 5 min
[2023-11-27] MEDS: ondansetron 2 mg/ML SDV 2 mL 4 MG IVP ×2 (10:30→21:15)
[2023-11-27] MEDS: acetaminophen 500 mg Tablet 1000 MG PO ×2 (14:27→20:53)
--- NOTE | 2023-11-27 15:51 | P.PN_ITS ---
Subjective 2 Subjective: Patient is seen postop day 1 following right total hip arthroplasty. She notes she has a difficulty participating with physical therapy. At this point, she is not ready for discharge to home. Vitals/I&O/Wt Last Vital Signs Temp 98.3 F 11/27/23 07:33 Pulse 72 11/27/23 11:31 Resp 16 11/27/23 14:26 BP 105/63 11/27/23 11:31 Pulse Ox 97 11/27/23 11:31 O2 Del Method Room Air 11/27/23 14:43 O2 Flow Rate 5 11/26/23 13:47 11/27/23 11/27/23 11/27/23 06:59 14:59 22:59 Intake Total 50 / 2560 510 / 510 Output Total 700 / 2300 Balance -650 / 260 510 / 510 Weight last 48 hrs Weight 156 lb 8 oz Weight 151 lb Weight 140 lb Physical Exam 2 Narrative: Patient is complaining of some shaking, and she queries whether or not that is anesthesia. Const: COMMON NORMALS: no acute distress, average body habitus, patient oriented x3 and alert GENERAL APPEARANCE: cooperative and comfortable O RIENTATION/CONSCIOUSNESS: Yes awake HENMT: COMMON NORMALS: normocephalic and atraumatic HEAD & SCALP: n ormocephalic and atraumatic Eye: GENERAL EYE: appearance normal, both eyes and all related structures Chest: COMMONS NORMALS: normal inspection of the chest Resp: COMMON NORMALS: normal respiratory effort EFFORT & INSPECTION: Yes able to speak in complete sentences and Yes symmetric chest movement Extremity: RIGHT LOWER EXTREMITY: Yes hip joint (Dressing is dry and intact.) Right hip: Yes ROM (Not evaluated) and Yes neurovascular exam (Intact with no evidence of DVT) Neuro: COMMON NORMALS: patient oriented x3 SENSORIUM/ORIENTATION: Yes alert Psych: COMMON NORMALS: mental status grossly normal APPEARANCE: Yes grossly normal ATTITUDE: Yes calm and Yes engaged ATTENTION/CONCENTRATION: Yes attention grossly intact Skin: COMMON NORMALS: no rashes or lesions noted GENERAL SKIN EXAM: no rashes or lesions noted Urinary Catheter Management: Leiva: Cath Placed During This Visit: yes, but has since been removed by the nurse Reason for Continuing Indwelling Catheter: Decision to DC Catheter Urinary Catheter Date of Insertion: 11/26/23 Urinary Catheter Time of Insertion: 10:25 Date Urinary Catheter Removed: 11/27/23 Time Urinary Catheter Discontinued: 06:25 Data 11/27/23 05:32 11/27/23 05:32 A&P Assessment and plan (1) Primary osteoarthritis of right hip: Patient underwent same-day surgery yesterday for right total hip arthroplasty. She is doing well, but is having difficulty participating with physical therapy secondary to pain. She has also had some shakes, and I will consult the medical service to evaluate the reason for these and for the appropriate treatment. Attestations 2 Medical Necessity Statement*: Ongoing care following right total hip arthroplasty Coding Level of Care Code Acute Code for [facility] Fwd Diagnoses Primary osteoarthritis of right hip M16.11
[2023-11-27] MEDS: LORazepam 2 mg Tablet PO (20:54)
--- NOTE | 2023-11-27 21:38 | P.CONIM_ITS ---
Providers/Reason For Consult 2 Consulting Physician/Specialty*: Hospitalist Reason for Consult*: Alcohol withdrawal Attending Physician: Sonal Crook MD Primary Care Provider: VINOD Chase History of Present Illness History of Present Illness Kailyn Felix is a 43 year old female started having tremor, becoming jittery, anxious, symptoms of withdrawal following AMIE. She tells me that she drinks somewhat heavily , and has quit drinking alcohol twice in the past including had gone to rehabilitation when she was in her teenage years. She has had a withdrawal seizure in the past. She tells me her last drink was on Thursday or Thursday and she stopped drinking after that. She denies currently having any hallucinations. Review of Systems 2 Const: Denies: fever(s) or chills ENMT: Denies: throat pain Card: Denies: chest pain or edema Resp: Denies: dyspnea GI: Denies: abdominal pain, nausea, vomiting or constipation : Denies: flank pain, urinary frequency or hematuria Skin/Breast: Denies: rash Neuro: Denies: headache(s), numbness in extremities, weakness in extremities, dizziness, confusion or seizure-like activity Medications/Allergies Home Medications Medication Instructions Recorded Confirmed Last Taken Type epinephrine 0.3 mg/0.3 mL 0.3 mg (0.3 mL) IM Q10M PRN 11/26/21 11/25/23 Unknown Rx injection, auto-injector (EpiPen) anaphylaxis #2 ea fluticasone propionate 50 1 spray intranasal DAILY 02/17/23 11/25/23 11/25/23 05:00 History mcg/actuation nasal spray,suspension omeprazole 20 mg capsule,delayed 20 mg PO BID #60 caps 02/27/23 11/25/23 11/25/23 05:00 Rx release albuterol sulfate 90 mcg/actuation 2 puff inhalation Q6H #18 grams 03/26/23 11/25/23 Unknown Rx aerosol inhaler (Ventolin HFA) azelastine 137 mcg (0.1 %) nasal 1 spray intranasal DAILY 07/15/23 11/25/23 11/25/23 05:00 History spray aerosol atorvastatin 10 mg tablet 10 mg PO DAILY #30 tabs 09/02/23 11/25/23 11/24/23 05:00 Rx diazepam 2 mg tablet 2 mg PO BID PRN anxiety #30 tabs 09/02/23 11/25/23 Unknown Rx lisinopril 10 mg tablet 10 mg PO DAILY #30 tabs 09/02/23 11/25/23 11/25/23 05:00 Rx cetirizine 10 mg disintegrating 10 mg PO DAILY 09/17/23 11/25/23 11/25/23 05:00 History tablet sulfamethoxazole 800 1 tab PO BID 3 days #6 tabs 11/19/23 11/25/23 11/25/23 05:00 Rx mg-trimethoprim 160 mg tablet (Bactrim DS) escitalopram oxalate 20 mg tablet 10 mg PO DAILY 11/25/23 11/25/23 11/25/23 05:00 History Allergies Allergy/AdvReac Type Severity Reaction Status Date / Time No Known Allergies Allergy Verified 11/25/23 09:32 Current Medications Generic Name Dose Route Start Last Admin Trade Name Freq PRN Reason Stop Dose Admin Acetaminophen 1,000 mg 11/27/23 13:45 11/27/23 20:53 Acetaminophen 500 Mg Tablet PO 1,000 mg Q8H LEXII Administration Aspirin 325 mg 11/27/23 09:00 11/27/23 08:38 Aspirin 325 Mg Ec Tablet PO 325 mg DAILY LEXII Administration Atorvastatin Calcium 40 mg 11/27/23 09:00 11/27/23 08:37 Atorvastatin 40 Mg Tablet PO 40 mg DAILY LEXII Administration Calcium Carbonate 1,000 mg 11/26/23 18:00 11/27/23 17:19 Calcium Carbonate 500 Mg Chew Tablet PO 1,000 mg BID LEXII Administration Celecoxib 200 mg 11/26/23 14:44 11/27/23 14:27 Celecoxib 200 Mg Capsule PO 200 mg Q12H LEXII Administration Cetirizine HCl 10 mg 11/26/23 23:34 11/27/23 08:37 Cetirizine 10 Mg Tablet PO 10 mg DAILY LEXII Administration Chlorhexidine Gluconate 30 ml 11/26/23 17:00 11/27/23 20:54 Chlorhexidine Gluconate 0.12% Btl 473 Ml MUCOUS MEM 30 ml QID LEXII Administration Diazepam 2 mg 11/26/23 14:44 11/26/23 22:08 Diazepam 2 Mg Tablet PO 2 mg BID PRN Administration anxiety Escitalopram Oxalate 10 mg 11/27/23 09:00 11/27/23 08:36 Escitalopram 10 Mg Tablet PO 10 mg DAILY LEXII Administration Fluticasone Propionate 1 spray 11/27/23 09:00 11/27/23 08:40 Fluticasone Nasal [place] 16gm Btl INTRANASAL 1 spray DAILY LEXII Administration Lisinopril 10 mg 11/27/23 09:00 11/27/23 10:24 Lisinopril 10 Mg Tablet PO Not Given DAILY LEXII Lorazepam 2 mg 11/27/23 17:29 11/27/23 20:54 Lorazepam 2 Mg Tablet PO 2 mg Q4H PRN Administration WITHDRAWAL Protocol Multivitamins Therapeutic 1 tab 11/27/23 09:00 11/27/23 08:37 Multivitamin Therapeutic Tablet PO 1 tab DAILY LEXII Administration Mupirocin 1 applic 11/26/23 18:00 11/27/23 17:21 Mupirocin Oint 22 Gm NASAL 12/01/23 17:59 1 applic BID LEXII Administration Non-Formulary Medication 1 spray 11/27/23 09:00 11/27/23 08:39 Azelastine INTRANASAL Not Given DAILY LEXII Ondansetron HCl 4 mg 11/26/23 14:44 11/27/23 21:15 Ondansetron 2 Mg/Ml Sdv 2 Ml IVP 4 mg Q6H PRN Administration NAUSEA AND VOMITING Oxycodone HCl 5 - 10 mg 11/26/23 14:44 11/27/23 20:53 Oxycodone 5 Mg Ir Tab/Cap PO 10 mg Q4H PRN Administration MODERATE TO SEVERE PAIN Pantoprazole Sodium 40 mg 11/26/23 18:00 11/27/23 17:[address] 40 Mg Tablet PO 40 mg BID LEXII Administration Polysaccharide Iron Complex 150 mg 11/26/23 18:00 11/27/23 17:19 Iron Polysaccharide Complex 150 Mg Capsule PO 150 mg BIDWM LEXII Administration Senna/Docusate Sodium 2 tab 11/26/23 18:00 11/27/23 17:19 Sennosides-Docusate Tablet PO 2 tab BID LEXII Administration Trimethoprim/Sulfamethoxazole 1 tab 11/26/23 18:00 11/27/23 17:19 Sulfamethoxazole-Trimeth Ds 160-800 Mg Tablet PO 1 tab BID LEXII Administration Protocol Vitamin D 1,000 unit 11/27/23 09:00 11/27/23 08:37 Cholecalciferol (Vitamin D3) 1,000 Unit Tablet PO 1,000 unit DAILY LEXII Administration PFSH Acute 2 PFSH: Medical History Encounter for pre-operative cardiovascular clearance Anxiety and depression GERD (gastroesophageal reflux disease) Hypertension Seizures Surgical History No significant past surgical history Social History Smoking and tobacco/nicotine status: current every day tobacco/nicotine user Alcohol intake: current Alcohol intake frequency: few times a month Substance/Drug Use: never Vitals/I&O/Wt Last Vital Signs Temp 98.3 F 11/27/23 07:33 Pulse 70 11/27/23 17:20 Resp 17 11/27/23 20:53 BP 115/71 11/27/23 17:20 Pulse Ox 98 11/27/23 20:53 O2 Del Method Room Air 11/27/23 17:20 O2 Flow Rate 5 11/26/23 13:47 11/27/23 11/27/23 11/27/23 06:59 14:59 22:59 Intake Total 50 / 2560 750 / 750 Output Total 700 / 2300 Balance -650 / 260 750 / 750 Weight last 48 hrs Weight 70.987 kg Weight 68.492 kg Weight 63.503 kg Physical Exam 2 Const: COMMON NORMALS: patient oriented x3 and alert GENERAL APPEARANCE: c ooperative ORIENTATION/CONSCIOUSNESS: Yes awake OTHER: Somewhat jittery. Anxious appearing. HENMT: COMMON NORMALS: oropharynx normal Neck/C-Spine: COMMON NORMALS: no JVD Resp: COMMON NORMALS: normal respiratory effort and clear to auscultation bilaterally AUSCULTATION: clear to auscultation bilaterally Cardio: COMMON NORMALS: no JVD, regular rhythm, S1 normal heart sound present, S2 normal heart sound present and No murmurs present (Cardio) RHYTHM: regular rhythm HEART SOUNDS: S1 normal heart sound present and S2 normal heart sound present GI: COMMON NORMALS: Normal to inspection, nondistended, normoactive bowel sounds present, Soft to palpation and non-tender PALPATION: Yes Soft to palpation Extremity: COMMON NORMALS: no joint enlargement and no pedal edema N ARRATIVE EXTREMITY EXAM: Resting tremor Neuro: COMMON NORMALS: patient oriented x3 and moves all extremities S ENSORIUM/ORIENTATION: Yes alert Skin: COMMON NORMALS: no rashes or lesions noted GENERAL SKIN EXAM: no rashes or lesions noted Urinary Catheter Management: Leiva: Cath Placed During This Visit: yes, but has since been removed by the nurse Reason for Continuing Indwelling Catheter: Decision to DC Catheter Urinary Catheter Date of Insertion: 11/26/23 Urinary Catheter Time of Insertion: 10:25 Date Urinary Catheter Removed: 11/27/23 Time Urinary Catheter Discontinued: 06:25 Data 11/27/23 05:32 11/27/23 05:32 A&P Assessment and plan (1) Alcohol withdrawal: Does have history of severe withdrawal with seizure. Currently in withdrawal with tremors, anxiety, jitteriness, last drink was on Thursday or Thursday. Discussed with her we will request CIWA assessments with protocol, benzodiazepine treatment. Discussed with her risk of ongoing alcohol consumption, including risks of brain damage, dementia, discussed we will supplement thiamine, folic acid, multivitamin. Discussed availability of rehabilitation area with [facility], she states she will consider given they have an outpatient option. Seizure precautions with prior seizure with alcohol withdrawal. Reviewed vitals, CBC, BMP, pelvis x-ray. Orthopedic note. Discussed with orthopedic surgeon. (2) Primary osteoarthritis of right hip: Status post AMIE. Discussed with orthopedic surgeon. Per discussion with her and surgery after she leaves the hospital plans are for her to return home. Consult Attestations 2 Medical Necessity Statement: Continue admission for postoperative care and management of alcohol withdrawal after AMIE. and High MDM includes amount and/or complexity of data reviewed/ordered [ previous or external records, resulted lab(s)/test(s), ordered lab(s)/test(s) and other healthcare professional discussion] as documented Diagnoses Alcohol withdrawal F10.939 Primary osteoarthritis of right hip M16.11
[2023-11-28] VITALS (27 sets, daily range): BP systolic 80–135; BP diastolic 41–80; PULSE 56–113; RESP 16–27; TEMP 36.3–37.1; O2SAT 94–98
[2023-11-28] MEDS: CELEcoxib 200 mg Capsule PO ×2 (03:29→14:32)
[2023-11-28] MEDS: LORazepam 2 mg Tablet PO ×2 (03:29→09:26)
[2023-11-28] MEDS: acetaminophen 500 mg Tablet 1000 MG PO ×2 (05:08→14:32)
[2023-11-28 05:25] LABS: Basophils # 0.1 10^3/uL (0.0-0.1); Basophils % 0.8 %; Eosinophils # 0.2 10^3/uL (0.0-0.8); Eosinophils % 2.4 %; Hematocrit 29.4 % (36-47); Lymphocytes # 0.8 10^3/uL (0.8-4.8); Lymphocytes % 10.7 %; Mean Corpuscular Hemoglobin 35.1 pg (27-33); Mean Corpuscular Volume 106.5 fl (85-98); Mean Platelet Volume 10.2 fL (7.4-10.4); Monocytes # 0.4 10^3/uL (0.2-0.9); Monocytes % 5.1 %; Neutrophils # 5.73 10^3/uL (1.8-7.7); Neutrophils % 80.7 %; Nucleated Red Blood Cells % 0 %; Platelet Count 162 10^3/cmm (157-399); Red Blood Count 2.76 10^6/uL (3.85-5.65); Red Cell Distribution Width 13.8 % (12.1-15.1)
[2023-11-28 05:47] LABS: Anion Gap 11.6 (5-19); Blood Urea Nitrogen 9 mg/dL (6-20); Calcium 8.1 mg/dL (8.5-10.5); Carbon Dioxide 31 mmol/L (22-29); Chloride 98 mmol/L (98-107); Glomerular Filtration Rate 77.9 mL/min (90-130); Glucose 123 mg/dL (65-115); Magnesium 1.4 mg/dL (1.7-2.3); Osmolality Calculated 284 mOsm/kg (285-295); Potassium 3.6 mmol/L (3.5-5.1); Sodium 137 mmol/L (136-145)
--- NOTE | 2023-11-28 06:39 | PC.NURSE ---
Patient up in room, fidgety and restless. Patient has came out into hallway, dressed in her street clothes and her backpack on, dragging her walker behind her, first almost walking into another patient's room and then to the nurses' station and asked to go outside to put her bag in the car. When patient headed toward her room, she turned and attempted to the back hallway doors and was redirected by another nurse. About fifteen minutes later, patient tried to come out into the hallway but headed into another patient's room and turned around to walk to the back hallway doors again. Patient at this time had a cigarette in her hand. Patient was redirected to her room and cigarettes and time stamp assembler were confiscated and placed in patient chart. Patient was educated that she cannot smoke in the hospital. Patient stated, I'm not, that's why I was going outside. Patient was educated that she would need to wait for the doctors to come in and discharge her.
--- NOTE | 2023-11-28 07:35 | PC.NURSE ---
This nurse received a call from patient's . stated that the patient has been calling him since about 0300 and that something is wrong. stated it sounded like the patient was having hallucinations about hearing and seeing things. This nurse explained to the that the patient is having active alcohol withdrawal symptoms. stated that he understood that and that he's been through it before, just not like this. This nurse educated the patient's that usually day three to four is when symptoms start happening. This nurse informed the patient's that she stated to this nurse that her last drink was on Thursday. The patient's stated, Oh, she's lying to you. I hate to get in her trouble, but as far as I know, her last drink was the day of surgery. She had a fifth of vodka that she poured into a 16oz Propel water bottle. Also, I don't know if I should tell you this or the doctor, but she also has a history of substance abuse. This nurse informed the that the patient would not be getting in trouble but we needed to know in order to treat the patient accordingly.
[2023-11-28] MEDS: sennosides-docusate Tablet 2 TAB PO ×2 (09:19→17:26)
[2023-11-28] MEDS: cetirizine 10 mg Tablet PO (09:19)
[2023-11-28] MEDS: iron polysaccharide complex 150 mg Capsule PO ×2 (09:19→17:26)
[2023-11-28] MEDS: folic acid 1 mg Tablet PO (09:19)
[2023-11-28] MEDS: cholecalciferol (vitamin D3) 1,000 unit Tablet 1000 UNIT PO (09:19)
[2023-11-28] MEDS: atorvastatin 40 mg Tablet PO (09:19)
[2023-11-28] MEDS: aspirin 325 mg EC Tablet PO (09:19)
[2023-11-28] MEDS: thiamine 100 mg Tablet PO (09:19)
[2023-11-28] MEDS: calcium carbonate 500 mg Chew Tablet 1000 MG PO ×2 (09:19→17:26)
[2023-11-28] MEDS: escitalopram 10 mg Tablet PO (09:19)
[2023-11-28] MEDS: pantoprazole DR 40 mg Tablet PO ×2 (09:19→17:26)
[2023-11-28] MEDS: multivitamin therapeutic Tablet 1 TAB PO (09:20)
[2023-11-28] MEDS: chlorhexidine gluconate 0.12% Btl 473 mL 30 ML MUCOUS MEM (09:20)
[2023-11-28] MEDS: fluticasone nasal spray 16gm Btl 1 SPRAY INTRANASAL (09:20)
[2023-11-28] MEDS: mupirocin oint 22 gm 1 APPLIC NASAL (09:20)
[2023-11-28] MEDS: sulfamethoxazole-trimeth DS 160-800 mg Tablet 1 TAB PO ×2 (09:21→17:26)
[2023-11-28] MEDS: oxyCODONE 5 mg IR Tab/Cap PO (10:49)
[2023-11-28] MEDS: magnesium sulfate premix 4 GM/100 ML PREMIX IV (10:51)
[2023-11-28] MEDS: nicotine 4 mg lozenge MUCOUS MEM (11:31)
[2023-11-28] MEDS: LORazepam 2 mg/mL INJ 10 mL MDV IVP ×2 (12:14→16:18)
--- NOTE | 2023-11-28 15:21 | W.PM.EVENTAC ---
Event Note Event Note: Ambulating in the hallway barefoot but with her street clothes and backpack on, trying to leave AGAINST MEDICAL ADVICE, states that her father was trying to correct her how to walk safely and that they got upset at each other and he left. She keeps saying that she needs to take her daughter out to the car, but her daughter is not here. States my daughter was out in the wheelchair, always I was no one came in the wheelchair because I had the hip surgery . Continues taking off and trying fumble with the pockets on her backpack looking for a cigarette, nearly falling down in the hallway. As per our prior discussion discussed with her again unfortunate there is no smoking to facility, we may offer her additional nicotine patch, additional lozenges, but it is not safe for her to smoke here or try to go out and smoke outside. With making confused statements, she is also still tremulous, jittery, impulsive behavior, is still withdrawing from alcohol, currently unable to make rational decisions, unable to make a decision safely about leaving AMA. One-to-one sitter requested due to risk of fall, elopement. Discussed with her who also states she has had irrational behaviour, accusing him of being outside to steal her cigarettes whereas he is at home with their daughters. After redirection by multiple staff she agreed to come back to her room back to bed, and agreed for shot of Ativan IM as she had removed her IV. Continue CIWA monitoring, Ativan per CIWA, continue nicotine replacement.
[2023-11-28] MEDS: LORazepam 2 mg/mL INJ 10 mL MDV IM (15:26)
--- NOTE | 2023-11-28 15:38 | PC.NURSE ---
Patient is disoriented and has repeatedly tried to leave facility to have a cigarette. Patient removed own IV during this nurse's shift. Patient has had some auditory and visual hallucinations. Patient has not followed physical therapy instructions/precautions for post op hip replacement care. Staff called security and provider who came to floor to help deescalate patient. Staff was able to safely get patient to the room and give ativan IM per CIWA protcol.
--- NOTE | 2023-11-28 15:44 | P.PN_ITS ---
Subjective 2 Subjective: This morning she is dressed in her street clothes, and hospital socks, standing in the room, holding onto the IV pole, is visited by her father and another elderly visitor, on entering the room she tries to pull to pull out of the room, continues to pull on the pole that is plugged into the wall, trying to tell her that it is plugged in she does not seem to react, we unplugged the pool and come out into the hallway where she prefers to talk outside of her father's earshot. She is walking with a staggering gait, nearly falls down when trying to turn around when I am redirecting her to sit down in a chair in the hallway. We discussed with her that although her CIWA scores appear improved, judging by her still present tremors, staggering gait, impulsive behavior she is at very high risk of fall, and withdrawal though with improvement appears to still be affecting her in a significant way and increasing her risk of fall and injury, possibly injury of the replaced hip substantially. We discussed that it would be safer to additionally monitor and treat as needed in the hospital with reassessment again tomorrow. She does again inquire about having a cigarette, and we discussed with her that unfortunately she is unable to smoke while in the hospital or outside due to risk of fire, regulation, however, we can increase in nicotine supplementation, give additional lozenges as needed, discussed consideration of having a token for use in her hands at all to help reduce craving. She is agreeable with the assessment and findings and agrees to stay to continue hospitalization. Returns to the room with her father. I am later called that she is at the nurses station trying to leave AGAINST MEDICAL ADVICE and that her father is not in the room. Please see event note from today. Coming upstairs to see her she is staggering to the other end of the hallway wearing her street close, socks, backpack, her shoes on her room, she is trying to leave through the back staircase with a cigarette offset assistant press operator in her hand, with multiple staff tried to speak with her and redirect her. Please see event note for further details. Vitals/I&O/Wt Last Vital Signs Temp 98.3 F 11/28/23 11:59 Pulse 85 11/28/23 11:59 Resp 16 11/28/23 11:59 BP 114/75 11/28/23 11:59 Pulse Ox 97 11/28/23 11:59 O2 Del Method Room Air 11/28/23 11:59 O2 Flow Rate 5 11/26/23 13:47 11/28/23 11/28/23 11/28/23 06:59 14:59 22:59 Intake Total 300 / 1830 580 / 580 Balance 300 / 1830 580 / 580 Weight last 48 hrs Weight 70.987 kg Physical Exam 2 Const: COMMON NORMALS: patient oriented x3 and alert GENERAL APPEARANCE: c ooperative ORIENTATION/CONSCIOUSNESS: Yes awake OTHER: Jittery, tremulous. Impulsive/restless. Anxious appearing. HENMT: COMMON NORMALS: oropharynx normal Neck/C-Spine: COMMON NORMALS: no JVD Resp: COMMON NORMALS: normal respiratory effort and clear to auscultation bilaterally AUSCULTATION: clear to auscultation bilaterally Cardio: COMMON NORMALS: no JVD, regular rhythm, S1 normal heart sound present, S2 normal heart sound present and No murmurs present (Cardio) RHYTHM: regular rhythm HEART SOUNDS: S1 normal heart sound present and S2 normal heart sound present GI: COMMON NORMALS: Normal to inspection, nondistended, normoactive bowel sounds present, Soft to palpation and non-tender PALPATION: Yes Soft to palpation Extremity: COMMON NORMALS: no joint enlargement and no pedal edema N ARRATIVE EXTREMITY EXAM: Resting tremor Neuro: COMMON NORMALS: patient oriented x3 and moves all extremities S ENSORIUM/ORIENTATION: Yes alert OTHER: Staggering wide based gait. Skin: COMMON NORMALS: no rashes or lesions noted GENERAL SKIN EXAM: no rashes or lesions noted Urinary Catheter Management: Leiva: Cath Placed During This Visit: yes, but has since been removed by the nurse Reason for Continuing Indwelling Catheter: Decision to DC Catheter Urinary Catheter Date of Insertion: 11/26/23 Urinary Catheter Time of Insertion: 10:25 Date Urinary Catheter Removed: 11/27/23 Time Urinary Catheter Discontinued: 06:25 Data 11/28/23 04:43 11/28/23 04:43 A&P Assessment and plan (1) Alcohol withdrawal: Reviewed vitals, CBC, BMP, magnesium, CIWA scores. Noted hypomagnesemia 1.4, requested for gram increasing replacement. CIWA appears to be improving overnight, however, this afternoon with worsened restlessness, wandering, jitters, tremors, impulsive and restless with staggering ambulation, initially agreeable to stay to continue hospitalization. Discussed with orthopedic surgeon. Later on after her father leaves she is trying to leave AGAINST MEDICAL ADVICE, nearly falling several times Fumbling with her backpack, trying to retrieve cigarettes and leave. Loose connection with reality, states that her daughter is waiting for her outside her room whom she needs to take to the car to take her back home even though her daughters are home with her . Her as per discussion also states that she has had some non-rational statements. Currently unable to make a decision to leave AMA. As per discussion with she needs continued treatment for severe alcohol withdrawal. Discussed with staff. One-to-one sitter requested. After multiple redirection attempts she finally agreed to return to the room to the bed and agreed to take an Ativan dose as she had removed her IV. Discussed with staff also adding scheduled Librium for her 50 mg 3 times daily. She is requiring additional Ativan at the moment as it is becoming restless again. CIWA score at the moment 26. Continue tracking, monitor for mental status changes, lethargy, respiratory suppression with parenteral benzodiazepines, continue benzodiazepines for support with severe alcohol withdrawal. Continue nicotine replacement, patches, lozenges for nicotine cravings. (2) Primary osteoarthritis of right hip: Status post AMIE. Discussed with orthopedic surgeon. Per discussion with her and surgery after she leaves the hospital plans are for her to return home. Attestations 2 Medical Necessity Statement*: Continue admission for assessment of management of severe alcohol withdrawal. and High Time for a total of 70 minutes, includes reviewing past or interval history, examining/interviewing patient, placing orders, counseling patient/family/other support, updating patient/family/other support, discussing plan of care with staff, communicating with other healthcare providers, documenting encounter and coordinating care Diagnoses Alcohol withdrawal F10.939 Primary osteoarthritis of right hip M16.11
[2023-11-28] MEDS: chlordiazePOXIDE 25 mg Capsule 50 MG PO (15:58)
--- NOTE | 2023-11-28 16:35 | PC.NURSE ---
Dr. Myers notified that patient has been continuing to escalate despite medications given, patient is continuing to have visual and auditory hallucinations, patient is not following safety instructions, and is not redirectable. patient is also not following post-op hip surgery precautions, and is risking damage to the surgical site. transfer orders placed by Dr. Myers.
[2023-11-28] MEDS: chlordiazePOXIDE 25 mg Capsule PO (17:26)
--- NOTE | 2023-11-28 17:30 | PC.NURSE ---
Report has been called to LATA Posada, in the ICU.
--- NOTE | 2023-11-28 17:40 | P.PN_ITS ---
Subjective 2 Subjective: Patient is seen today in her room. She is still dressed in her street clothes. She is surprised that she is going to be transferred to the ICU. Unfortunately, she continues to have symptoms of withdrawal requiring closer monitoring. Medications: Reviewed: Yes Vitals/I&O/Wt Last Vital Signs Temp 98.3 F 11/28/23 11:59 Pulse 85 11/28/23 11:59 Resp 16 11/28/23 11:59 BP 114/75 11/28/23 11:59 Pulse Ox 97 11/28/23 11:59 O2 Del Method Room Air 11/28/23 11:59 O2 Flow Rate 5 11/26/23 13:47 11/28/23 11/28/23 11/28/23 06:59 14:59 22:59 Intake Total 300 / 1830 580 / 580 240 / 820 Balance 300 / 1830 580 / 580 240 / 820 Weight last 48 hrs Weight 156 lb 8 oz Physical Exam 2 Narrative: Patient still has symptoms of withdrawal, and she is dressed sitting in her room. Const: COMMON NORMALS: no acute distress, average body habitus, patient oriented x3 and alert GENERAL APPEARANCE: cooperative and comfortable O RIENTATION/CONSCIOUSNESS: Yes awake HENMT: COMMON NORMALS: normocephalic and atraumatic HEAD & SCALP: n ormocephalic and atraumatic Eye: GENERAL EYE: appearance normal, both eyes and all related structures Chest: COMMONS NORMALS: normal inspection of the chest Resp: COMMON NORMALS: normal respiratory effort EFFORT & INSPECTION: Yes able to speak in complete sentences and Yes symmetric chest movement Extremity: RIGHT LOWER EXTREMITY: Yes hip joint Right hip: Yes ROM (Not assessed) and Yes neurovascular exam (Intact distally) Neuro: COMMON NORMALS: patient oriented x3 SENSORIUM/ORIENTATION: Yes alert Psych: COMMON NORMALS: mental status grossly normal APPEARANCE: Yes grossly normal ATTITUDE: Yes calm and Yes engaged ATTENTION/CONCENTRATION: Yes attention grossly intact Skin: COMMON NORMALS: no rashes or lesions noted GENERAL SKIN EXAM: no rashes or lesions noted Urinary Catheter Management: Leiva: Cath Placed During This Visit: yes, but has since been removed by the nurse Reason for Continuing Indwelling Catheter: Decision to DC Catheter Urinary Catheter Date of Insertion: 11/26/23 Urinary Catheter Time of Insertion: 10:25 Date Urinary Catheter Removed: 11/27/23 Time Urinary Catheter Discontinued: 06:25 Data 11/28/23 04:43 11/28/23 04:43 A&P Assessment and plan (1) Primary osteoarthritis of right hip: Patient underwent same-day surgery yesterday for right total hip arthroplasty. The patient is currently detoxing, from alcohol, and she is to be transferred to the ICU for closer monitoring. Today, the symptoms increased, and this is concerning for her safety at home. Medicine will continue to treat her for this. With regards to her hip, she has been walking, and she notes that it is feeling better. Attestations 2 Medical Necessity Statement*: Ongoing care provided by the medical service Coding Level of Care Code [facility] Diagnoses Primary osteoarthritis of right hip M16.11
[2023-11-28] MEDS: dexmedeTOMIDine 0.9 % NaCL 400 MCG/100 ML PREMIX 1.78000000000000003 MCG IV (18:15)
[2023-11-28] MEDS: LORazepam 2 mg/mL INJ 10 mL MDV 4 MG IVP (18:17)
[2023-11-28] MEDS: LORazepam 2 mg/mL INJ 1 mL 4 MG IVP (19:04)
[2023-11-28] MEDS: valproic acid inj 500 MG in sodium chloride 0.9% 50 ML 55 MG IV (19:19)
--- NOTE | 2023-11-28 19:57 | PC.NURSE ---
Patient became very agitated during bedside report around 1844. Kailyn started demanding to get out of bed to smoke a cigarettes. When offered a nicotine patch, she refused. She seemed to be hallucinating- reaching into the air trying to grab things, asking who people were- that were in fact not present. Staff attempted to deescalate the situation by reorienting the patient to situation and time, decrease stimuli, and the use of PRN medication orders. Kailyn continued to attempt to get out of bed, hurt staff and put herself at risk of harming herself by getting out of bed. Dr. Myers was notified, orders given to administer 4mg of IVP ativan, came to bedside shortly after giving nursing staff these orders.
[2023-11-28] MEDS: sodium chloride 0.9% 250 ML IV (20:10)
--- NOTE | 2023-11-28 20:14 | XRR_ITS ---
PROCEDURE INFORMATION: Exam: XR Right Hip Exam date and time: 11/28/2023 8:23 PM Age: 43 years old Clinical indication: Hip pain; Right hip; Prior surgery; Surgery date: Post-operative (0-2 days); Surgery type: RT hip hemiarthroplasty; Additional info: Agitation after hip surgery, assess TECHNIQUE: Imaging protocol: Radiologic exam of the right hip. Views: 1 view hip with pelvis when performed. COMPARISON: CR XR pelvis 1-2V* [id number] 11/26/2023 1:40 PM FINDINGS: Bones/joints: Right hip arthroplasty changes in place. Postsurgical soft tissue changes about the right hip. Soft tissues: See Bones/joints finding. XR/XR hip RT 2-3V wo/w pel* [id number] IMPRESSION: 1. Right hip arthroplasty changes in place. 2. Postsurgical soft tissue changes about the right hip.
[2023-11-28] MEDS: sodium chloride 0.9% 250 ML 999 ML IV (20:29)
--- NOTE | 2023-11-28 20:34 | PC.NURSE ---
Notified Dr. Barragan that blood pressure still remains 82/48 (59) despite 500mL NS bolus total amount given per Dr. Myers's order and precedex is currently off. Notified that x-ray of right hip had been completed and he may want to review it as it does not look the same as her post op x-ray. Order given to run levophed for 1 hour.
[2023-11-28] MEDS: norepinephrine 4 MG/250 ML BAG 7.5 MG IV (20:53)
[2023-11-28] MEDS: nicotine 21 mg Patch 1 PATCH TRANSDERMA (21:50)
[2023-11-29] VITALS (100 sets, daily range): BP systolic 78–131; BP diastolic 50–87; PULSE 56–108; RESP 11–28; TEMP 36.2–36.8; O2SAT 90–100
[2023-11-29] MEDS: LORazepam 2 mg/mL INJ 10 mL MDV 4 MG IVP ×2 (00:23→09:05)
[2023-11-29 03:55] LABS: Basophils # 0.1 10^3/uL (0.0-0.1); Basophils % 0.9 %; Eosinophils # 0.2 10^3/uL (0.0-0.8); Eosinophils % 3.6 %; Hematocrit 29.5 % (36-47); Lymphocytes # 0.6 10^3/uL (0.8-4.8); Lymphocytes % 9.5 %; Mean Corpuscular HGB Conc 31.9 g/dL (30-55); Mean Corpuscular Hemoglobin 34.3 pg (27-33); Mean Corpuscular Volume 107.7 fl (85-98); Mean Platelet Volume 10.6 fL (7.4-10.4); Monocytes # 0.4 10^3/uL (0.2-0.9); Monocytes % 6.1 %; Neutrophils # 4.59 10^3/uL (1.8-7.7); Neutrophils % 79.6 %; Nucleated Red Blood Cells % 0 %; Platelet Count 164 10^3/cmm (157-399); Red Blood Count 2.74 10^6/uL (3.85-5.65); Red Cell Distribution Width 13.7 % (12.1-15.1); White Blood Count 5.77 10^3/uL (3.29-11.43)
[2023-11-29 04:14] LABS: Magnesium 1.9 mg/dL (1.7-2.3)
[2023-11-29 04:17] LABS: Anion Gap 14.5 (5-19); Blood Urea Nitrogen 5 mg/dL (6-20); Calcium 7.6 mg/dL (8.5-10.5); Carbon Dioxide 26 mmol/L (22-29); Chloride 106 mmol/L (98-107); Creatinine Clr Calc Pharmacy 138.7535; Glucose 93 mg/dL (65-115); Osmolality Calculated 293 mOsm/kg (285-295); Potassium 3.5 mmol/L (3.5-5.1); Sodium 143 mmol/L (136-145)
[2023-11-29] MEDS: cholecalciferol (vitamin D3) 1,000 unit Tablet 1000 UNIT PO (08:58)
[2023-11-29] MEDS: multivitamin therapeutic Tablet 1 TAB PO (08:58)
[2023-11-29] MEDS: aspirin 325 mg EC Tablet PO (08:58)
[2023-11-29] MEDS: pantoprazole DR 40 mg Tablet PO ×2 (08:58→17:13)
[2023-11-29] MEDS: chlordiazePOXIDE 25 mg Capsule 50 MG PO (08:58)
[2023-11-29] MEDS: folic acid 1 mg Tablet PO (08:58)
[2023-11-29] MEDS: iron polysaccharide complex 150 mg Capsule PO ×2 (08:59→17:13)
[2023-11-29] MEDS: escitalopram 10 mg Tablet PO (08:59)
[2023-11-29] MEDS: cetirizine 10 mg Tablet PO (08:59)
[2023-11-29] MEDS: sennosides-docusate Tablet 2 TAB PO ×2 (08:59→17:13)
[2023-11-29] MEDS: atorvastatin 40 mg Tablet PO (08:59)
[2023-11-29] MEDS: fluticasone nasal spray 16gm Btl 1 SPRAY INTRANASAL (08:59)
[2023-11-29] MEDS: thiamine 100 mg Tablet PO (08:59)
[2023-11-29] MEDS: calcium carbonate 500 mg Chew Tablet 1000 MG PO ×2 (08:59→17:13)
[2023-11-29] MEDS: lisinopril 10 mg Tablet PO (08:59)
[2023-11-29] MEDS: mupirocin oint 22 gm 1 APPLIC NASAL ×2 (09:01→17:16)
[2023-11-29] MEDS: oxyCODONE 5 mg IR Tab/Cap PO (09:12)
[2023-11-29] MEDS: ondansetron 2 mg/ML SDV 2 mL 4 MG IVP (09:22)
[2023-11-29] MEDS: sulfamethoxazole-trimeth DS 160-800 mg Tablet 1 TAB PO ×2 (09:26→17:13)
--- NOTE | 2023-11-29 10:28 | PC.OT ---
Spoke with nursing. When looking at the x-ray one screw appears displaced as compared to a previous x-ray. Will hold therapy and wait until the physician provides their opinion.
--- NOTE | 2023-11-29 10:51 | P.PN_ITS ---
Subjective 2 Subjective: She is somnolent, wakes up to voice. Earlier reported having some pain in her right hip, currently no pain or discomfort. Speaking with her, she knows she is in the hospital, can tell me the year and the month. Asking her why she is in the hospital, states, however, that she have not brought her in here and that something jabbed her . Asking her to explain further, she states that there was a concern about her after bringing her kids and that she had to be kept here instead. Does not tell me about alcohol withdrawal or hip surgery. Does seem to have some waxing and waning, and appears earlier did tell nursing staff about the surgery, possibly when her hip was hurting. She also seem to say that she was not trying to hurt anyone , she was just trying to smoke . Vitals/I&O/Wt Last Vital Signs Temp 97.2 F L 11/29/23 04:00 Pulse 71 11/29/23 10:15 Resp 17 11/29/23 10:15 BP 100/64 11/29/23 10:15 Pulse Ox 98 11/29/23 09:28 O2 Del Method Room Air 11/29/23 09:28 O2 Flow Rate 2 11/29/23 01:00 11/28/23 11/29/23 11/29/23 22:59 06:59 14:59 Intake Total 773.516 / 1353.516 2.576 / 1356.092 360 / 360 Output Total 1700 / 1700 1500 / 3200 Balance -926.484 / -346.484 -1497.424 / -1843.908 360 / 360 Weight last 48 hrs Weight 66.179 kg Physical Exam 2 Const: COMMON NORMALS: patient oriented x3 and alert GENERAL APPEARANCE: c ooperative ORIENTATION/CONSCIOUSNESS: Yes awake OTHER: She appears less tremulous today, currently resting, wakes up. Promptly falls back asleep. Still some impulsive behavior earlier today. HENMT: COMMON NORMALS: oropharynx normal Neck/C-Spine: COMMON NORMALS: no JVD Resp: COMMON NORMALS: normal respiratory effort and clear to auscultation bilaterally AUSCULTATION: clear to auscultation bilaterally Cardio: COMMON NORMALS: no JVD, regular rhythm, S1 normal heart sound present, S2 normal heart sound present and No murmurs present (Cardio) RHYTHM: regular rhythm HEART SOUNDS: S1 normal heart sound present and S2 normal heart sound present GI: COMMON NORMALS: Normal to inspection, nondistended, normoactive bowel sounds present, Soft to palpation and non-tender PALPATION: Yes Soft to palpation Extremity: COMMON NORMALS: no joint enlargement and no pedal edema Neuro: COMMON NORMALS: patient oriented x3 and moves all extremities S ENSORIUM/ORIENTATION: Yes alert Skin: COMMON NORMALS: no rashes or lesions noted GENERAL SKIN EXAM: no rashes or lesions noted Urinary Catheter Management: Leiva: Cath Placed During This Visit: yes, but has since been removed by the nurse Reason for Continuing Indwelling Catheter: Accurate Measurement of Urinary Output in Critically Ill Patients Urinary Catheter Date of Insertion: 11/28/23 Urinary Catheter Time of Insertion: 19:57 Date Urinary Catheter Removed: 11/27/23 Time Urinary Catheter Discontinued: 06:25 Data 11/29/23 03:07 11/29/23 03:07 A&P Assessment and plan (1) Alcohol withdrawal: Overnight CIWA score up to 16, seems to be doing better this morning. Tremor appears to be better. Her insight appears to be waxing waning somewhat, she seems to state that she ended up in the hospital to bring in her kids but had to be kept in due to a concern. But did seem to states she had a hip surgery earlier to nursing staff. Still had impulsive behavior, trying to leave earlier. Continue one-to-one sitter. Reviewed vitals, CBC, BMP, magnesium, CIWA score, hip x-ray. Discussed hip x-ray with orthopedic surgeon they will review imaging. Discussed with her , he was considering visiting, but at the same time is concerned so as not to trigger her to start trying to leave the hospital prematurely again. As per discussion we will continue reassessing, hopefully she may be through the worst of withdrawal now, and continuing to improve so that she may return home in the next day or so. Continue reassessment withdrawal, CIWA scores, wean Precedex, will cut down Librium to 25 mg. Continue as needed Ativan for withdrawal scale, monitor with medication risks. As per prior discussion with her she has been to rehabilitation previously, and did not wish additional informational materials about rehabilitation, we did discuss regarding naltrexone with her, and she stated may consider it, although as per discussion is not a candidate for it at the moment given she has been on opioids but she stated will consider visiting about it with her primary provider. In the meantime continue also nicotine replacement, patch, lozenges as needed. (2) Primary osteoarthritis of right hip: X-ray obtained after episode of agitation yesterday trying to kick staff. Reviewed. Discussed with orthopedic surgeon, they will reviewed the images. Status post AMIE. Discussed with orthopedic surgeon. Per discussion with her and surgery after she leaves the hospital plans are for her to return home. Attestations 2 Medical Necessity Statement*: Continue admission for assessment of management of severe alcohol withdrawal. Diagnoses Alcohol withdrawal F10.939 Primary osteoarthritis of right hip M16.11
--- NOTE | 2023-11-29 12:29 | P.PN_ITS ---
Subjective 2 Subjective: Patient is quite somnolent, and she is not awakened today. She has been walking and complaining of some hip pain. Medications: Reviewed: Yes Vitals/I&O/Wt Last Vital Signs Temp 97.2 F L 11/29/23 04:00 Pulse 71 11/29/23 10:15 Resp 17 11/29/23 10:15 BP 100/64 11/29/23 10:15 Pulse Ox 98 11/29/23 09:28 O2 Del Method Room Air 11/29/23 09:28 O2 Flow Rate 2 11/29/23 01:00 11/28/23 11/29/23 11/29/23 22:59 06:59 14:59 Intake Total 773.516 / 1353.516 2.576 / 1356.092 360 / 360 Output Total 1700 / 1700 1500 / 3200 Balance -926.484 / -346.484 -1497.424 / -1843.908 360 / 360 Weight last 48 hrs Weight 145 lb 14.4 oz Physical Exam 2 Narrative: Patient still has symptoms of withdrawal, and she is dressed sitting in her room. Const: COMMON NORMALS: no acute distress, average body habitus, patient oriented x3 and alert GENERAL APPEARANCE: cooperative and comfortable O RIENTATION/CONSCIOUSNESS: Yes awake HENMT: COMMON NORMALS: normocephalic and atraumatic HEAD & SCALP: n ormocephalic and atraumatic Eye: GENERAL EYE: appearance normal, both eyes and all related structures Chest: COMMONS NORMALS: normal inspection of the chest Resp: COMMON NORMALS: normal respiratory effort EFFORT & INSPECTION: Yes able to speak in complete sentences and Yes symmetric chest movement Extremity: RIGHT LOWER EXTREMITY: Yes hip joint (Dressing is dry and intact) Right hip: Yes ROM (Not evaluated) Neuro: COMMON NORMALS: patient oriented x3 SENSORIUM/ORIENTATION: Yes alert Psych: COMMON NORMALS: mental status grossly normal APPEARANCE: Yes grossly normal ATTITUDE: Yes calm and Yes engaged ATTENTION/CONCENTRATION: Yes attention grossly intact Skin: COMMON NORMALS: no rashes or lesions noted GENERAL SKIN EXAM: no rashes or lesions noted Urinary Catheter Management: Leiva: Cath Placed During This Visit: yes, but has since been removed by the nurse Reason for Continuing Indwelling Catheter: Accurate Measurement of Urinary Output in Critically Ill Patients Urinary Catheter Date of Insertion: 11/28/23 Urinary Catheter Time of Insertion: 19:57 Date Urinary Catheter Removed: 11/27/23 Time Urinary Catheter Discontinued: 06:25 Data 11/29/23 03:07 11/29/23 03:07 A&P Assessment and plan (1) Primary osteoarthritis of right hip: Patient underwent same-day surgery for total hip arthroplasty. Postoperatively, she unfortunately, went into alcohol withdrawal. Currently, she is in the intensive care unit. She was complaining of some hip pain, and an x-ray was obtained. On this x-ray, it is apparent that one of the 2 acetabular screws exited the bone, but this is not a problem and she will be able to remain weightbearing as tolerated with normal activities. I have spoken with the hospitalist team, and they will be transferring service to her. They are advised that IM out of the office for the next 2 weeks. They are aware that I have on-call coverage as well. Attestations 2 Medical Necessity Statement*: Per hospitalist team Coding Level [facility] Primary osteoarthritis of right hip M16.11
[2023-11-29] MEDS: acetaminophen 500 mg Tablet 1000 MG PO ×2 (13:22→21:12)
[2023-11-29] MEDS: CELEcoxib 200 mg Capsule PO (13:22)
[2023-11-29] MEDS: chlordiazePOXIDE 25 mg Capsule PO ×2 (15:27→23:03)
[2023-11-29] MEDS: LORazepam 2 mg/mL INJ 10 mL MDV IVP (15:27)
[2023-11-29] MEDS: sodium chloride 0.9% 250 ML IV (19:04)
[2023-11-29] MEDS: chlorhexidine gluconate 0.12% Btl 473 mL 30 ML MUCOUS MEM (21:12)
[2023-11-30] VITALS (51 sets, daily range): BP systolic 90–138; BP diastolic 50–106; PULSE 59–99; RESP 13–26; TEMP 35.8–36.6; O2SAT 97–100; BMI 24.9
[2023-11-30] MEDS: oxyCODONE 5 mg IR Tab/Cap PO ×2 (02:59→08:32)
[2023-11-30] MEDS: LORazepam 2 mg/mL INJ 10 mL MDV IVP (04:11)
[2023-11-30 04:45] LABS: Basophils % 0.4 %; Eosinophils # 0.2 10^3/uL (0.0-0.8); Eosinophils % 2.9 %; Hematocrit 31.3 % (36-47); Lymphocytes # 0.5 10^3/uL (0.8-4.8); Lymphocytes % 6.8 %; Mean Corpuscular HGB Conc 32.6 g/dL (30-55); Mean Corpuscular Hemoglobin 34.9 pg (27-33); Mean Corpuscular Volume 107.2 fl (85-98); Mean Platelet Volume 10.1 fL (7.4-10.4); Monocytes # 0.4 10^3/uL (0.2-0.9); Monocytes % 5.1 %; Neutrophils # 6.52 10^3/uL (1.8-7.7); Neutrophils % 84.5 %; Nucleated Red Blood Cells % 0 %; Platelet Count 169 10^3/cmm (157-399); Red Blood Count 2.92 10^6/uL (3.85-5.65); Red Cell Distribution Width 13.4 % (12.1-15.1)
[2023-11-30] MEDS: acetaminophen 500 mg Tablet 1000 MG PO ×2 (04:51→14:13)
[2023-11-30 05:02] LABS: Anion Gap 11.6 (5-19); Blood Urea Nitrogen 8 mg/dL (6-20); Carbon Dioxide 25 mmol/L (22-29); Chloride 106 mmol/L (98-107); Creatinine Clr Calc Pharmacy 111.9952; Glomerular Filtration Rate 108.6 mL/min (90-130); Glucose 99 mg/dL (65-115); Osmolality Calculated 286 mOsm/kg (285-295); Potassium 3.6 mmol/L (3.5-5.1); Sodium 139 mmol/L (136-145)
[2023-11-30] MEDS: cetirizine 10 mg Tablet PO (08:29)
[2023-11-30] MEDS: sulfamethoxazole-trimeth DS 160-800 mg Tablet 1 TAB PO (08:29)
[2023-11-30] MEDS: chlordiazePOXIDE 25 mg Capsule PO (08:29)
[2023-11-30] MEDS: folic acid 1 mg Tablet PO (08:29)
[2023-11-30] MEDS: sennosides-docusate Tablet 2 TAB PO (08:30)
[2023-11-30] MEDS: pantoprazole DR 40 mg Tablet PO (08:30)
[2023-11-30] MEDS: aspirin 325 mg EC Tablet PO (08:30)
[2023-11-30] MEDS: iron polysaccharide complex 150 mg Capsule PO (08:30)
[2023-11-30] MEDS: atorvastatin 40 mg Tablet PO (08:30)
[2023-11-30] MEDS: multivitamin therapeutic Tablet 1 TAB PO (08:31)
[2023-11-30] MEDS: calcium carbonate 500 mg Chew Tablet 1000 MG PO (08:31)
[2023-11-30] MEDS: escitalopram 10 mg Tablet PO (08:31)
[2023-11-30] MEDS: thiamine 100 mg Tablet PO (08:31)
[2023-11-30] MEDS: nicotine 21 mg Patch 1 PATCH TRANSDERMA (08:31)
[2023-11-30] MEDS: cholecalciferol (vitamin D3) 1,000 unit Tablet 1000 UNIT PO (08:31)
[2023-11-30] MEDS: fluticasone nasal spray 16gm Btl 1 SPRAY INTRANASAL (08:33)
[2023-11-30] MEDS: chlorhexidine gluconate 0.12% Btl 473 mL 30 ML MUCOUS MEM (08:33)
[2023-11-30] MEDS: mupirocin oint 22 gm 1 APPLIC NASAL (08:35)
[2023-11-30 10:36] LABS: Alanine Aminotransferase 34 U/L (0-33); Albumin Level 3.3 g/dL (3.5-5.2); Alkaline Phosphatase 89 U/L (35-105); Aspartate Amino Transferase 35 U/L (0-32); Globulin 2.6 g/dL (1.3-4.6); Iron 36 ug/dL (37-145); Percent Saturation 17.3 % (20-50); Thyroid Stimulating Hormone 2.05 uIU/mL (0.27-4.20); Total Bilirubin 0.4 mg/dL (0.15-1.2); Total Iron Binding Capacity 208 mcg/dl; Total Protein 5.9 g/dL (6.6-8.7); Unsaturated Iron Binding 172 ug/dL (112-347); Vitamin B12 1758 pg/mL (232-1245)
[2023-11-30 11:16] LABS: HIV 1 & 2 Antibody Non-Reactive (Non-Reactiv); HIV 1 & 2 Antigen Non-Reactive (Non-Reactiv)
--- NOTE | 2023-11-30 16:07 | PM.DCS ---
Discharge Providers Date of Admission: 11/29/23 12:47 Date of Discharge: November 30, 2023 Attending Provider at Admission: Sonal Crook MD Attending Provider at Discharge: Cyril Beard MD Consults: Internal medicine: Dr. Myers/Dr. Beard Primary Care Provider: VINOD Cahse Diagnoses at Discharge Discharge Diagnosis (1) Primary osteoarthritis of right hip: Status: Chronic Reason for Visit Reason for Visit: M16.11 Hospital Course Hospital Course Kailyn Felix is a 43 year old female who was initially admitted under orthopedic service for AMIE which she underwent successfully on 11/25. Postoperatively patient developed anxiety, jitteriness and symptoms of alcohol withdrawal. Her hospitalization was complicated by worsening alcohol withdrawal symptoms with requiring high-dose of benzodiazepines and even Precedex drip requiring admission to ICU. Patient was started on Librium. She improved gradually and currently is at her baseline mentation for last 24 hours and is able to ambulate by herself as per physical therapy directions. She has been discharged in hemodynamically stable condition with advised to follow-up with orthopedic team in 10 days and a primary care provider in 1 week. She has been discharged on taper of Librium. She is advised to not consume alcohol while being on Librium. Patient is consulted. To avoid alcohol intake completely. Physical Exam Narrative: General: No acute distress, AO x3, during examination ambulating in the room, mild tremors present HEENT: PERRLA, pupils bilaterally equal and reactive Chest: Normal vesicular breath sounds, no added sounds, equal good air entry bilaterally CVS: S1-S2 regular, no murmurs, no tachycardia, no gallops, no rubs Abdomen: Soft, nontender, no organomegaly, bowel sounds present Neuro: No focal deficits, no facial deformity, AO x3, power 5/5 in all limbs Urinary Catheter Management: Leiva: Cath Placed During This Visit: yes, but has since been removed by the nurse Reason for Continuing Indwelling Catheter: Accurate Measurement of Urinary Output in Critically Ill Patients Urinary Catheter Date of Insertion: 11/28/23 Urinary Catheter Time of Insertion: 19:57 Date Urinary Catheter Removed: 11/27/23 Time Urinary Catheter Discontinued: 06:25 Discharge Data Studies Completed and Pending Completed Studies During Hospitalization Category Date Time Status XR hip RT 2-3V wo/w pel* [id number] Routine Exams 11/28/23 20:14 Completed XR pelvis 1-2V* [id number] Routine Exams 11/26/23 13:29 Completed Pending at discharge Category Date Time Status Complete Blood Count w/Auto AM LABS Lab 12/01/23 04:00 Ordered Comprehensive Metabolic Panel AM LABS Lab 12/01/23 04:00 Ordered Folate Level AM LABS Lab 12/01/23 04:00 Ordered Hemoglobin A1C AM LABS Lab 12/01/23 04:00 Ordered Lipid Profile w/VLDL Routine Lab 12/01/23 04:00 Ordered MAG [Magnesium] AM LABS Lab 12/01/23 04:00 Ordered MAG [Magnesium] AM LABS Lab 12/02/23 04:00 Ordered MAG [Magnesium] AM LABS Lab 12/03/23 04:00 Ordered Pathology: Surgical [PTH] Routine Pth 11/26/23 12:33 Received Radiology Impressions Pelvis X-Ray 11/26/23 13:29 IMPRESSION: 1. Postoperative radiographs status post total right hip arthroplasty with components in expected position. Hip/Pelvis X-Ray 11/28/23 20:14 IMPRESSION: 1. Right hip arthroplasty changes in place. 2. Postsurgical soft tissue changes about the right hip. Laboratory Results WBC 7.70 10^3/uL (3.29-11.43) 11/30/23 04:02 RBC 2.92 10^6/uL (3.85-5.65) L 11/30/23 04:02 Hgb 10.20 g/dL (11.27-16.99) L 11/30/23 04:02 Hct 31.3 % (36-47) L 11/30/23 04:02 MCV 107.2 fl (85-98) H 11/30/23 04:02 MCH 34.9 pg (27-33) H 11/30/23 04:02 MCHC 32.6 g/dL (30-55) 11/30/23 04:02 RDW 13.4 % (12.1-15.1) 11/30/23 04:02 Plt Count 169 10^3/cmm (157-399) 11/30/23 04:02 MPV 10.1 fL (7.4-10.4) 11/30/23 04:02 Neut % (Auto) 84.5 % 11/30/23 04:02 Lymph % (Auto) 6.8 % 11/30/23 04:02 Schley % (Auto) 5.1 % 11/30/23 04:02 Eos % (Auto) 2.9 % 11/30/23 04:02 Baso % (Auto) 0.4 % 11/30/23 04:02 Neut # (Auto) 6.52 10^3/uL (1.8-7.7) 11/30/23 04:02 Lymph # (Auto) 0.5 10^3/uL (0.8-4.8) L 11/30/23 04:02 Schley # (Auto) 0.4 10^3/uL (0.2-0.9) 11/30/23 04:02 Eos # (Auto) 0.2 10^3/uL (0.0-0.8) 11/30/23 04:02 Baso # (Auto) 0.0 10^3/uL (0.0-0.1) 11/30/23 04:02 Nucleated RBC % (auto) 0 % 11/30/23 04:02 Nucleated RBCs # 0.0 /100WBC 11/30/23 04:02 Sodium 139 mmol/L (136-145) 11/30/23 04:02 Potassium 3.6 mmol/L (3.5-5.1) 11/30/23 04:02 Chloride 106 mmol/L (98-107) 11/30/23 04:02 Carbon Dioxide 25 mmol/L (22-29) 11/30/23 04:02 Anion Gap 11.6 (5-19) 11/30/23 04:02 BUN 8 mg/dL (6-20) 11/30/23 04:02 Creatinine 0.6 mg/dL (0.5-0.9) 11/30/23 04:02 GFR Calculation 108.6 mL/min (90-130) 11/30/23 04:02 Glucose 99 mg/dL (65-115) 11/30/23 04:02 Calculated Osmolality 286 mOsm/kg (285-295) 11/30/23 04:02 Calcium 8.0 mg/dL (8.5-10.5) L 11/30/23 04:02 Magnesium 1.9 mg/dL (1.7-2.3) 11/29/23 03:07 Iron 36 ug/dL (37-145) L 11/30/23 04:02 TIBC 208 mcg/dl 11/30/23 04:02 % Saturation 17.3 % (20-50) L 11/30/23 04:02 Unsat Iron Binding 172 ug/dL (112-347) 11/30/23 04:02 Total Bilirubin 0.4 mg/dL (0.15-1.2) 11/30/23 04:02 Direct Bilirubin 0.20 mg/dL (0.00-0.30) 11/30/23 04:02 AST 35 U/L (0-32) H 11/30/23 04:02 ALT 34 U/L (0-33) H 11/30/23 04:02 Alkaline Phosphatase 89 U/L (35-105) 11/30/23 04:02 Total Protein 5.9 g/dL (6.6-8.7) L 11/30/23 04:02 Albumin 3.3 g/dL (3.5-5.2) L 11/30/23 04:02 Globulin 2.6 g/dL (1.3-4.6) 11/30/23 04:02 Vitamin B12 1758 pg/mL (232-1245) H 11/30/23 04:02 TSH 2.05 uIU/mL (0.27-4.20) 11/30/23 04:02 Urine HCG, Qual Negative (Negative) 11/26/23 09:58 HIV 1&2 Ab & HIV 1 Ag Non-reactive (Non-Reactiv) 11/30/23 04:02 HIV 1&2 Antibody Non-reactive (Non-Reactiv) 11/30/23 04:02 Vitals Last Vital Signs Temp 97.8 F 11/30/23 12:44 Pulse 66 11/30/23 09:30 Resp 14 11/30/23 09:30 BP 123/72 11/30/23 10:00 Pulse Ox 100 11/30/23 09:00 O2 Del Method Room Air 11/30/23 08:45 O2 Flow Rate 2 11/29/23 01:00 Discharge Plan Discharge Patient Disposition: Home Condition: Stable Prescriptions: New chlordiazepoxide HCl 25 mg Capsule See Rx Instructions .ROUTE .COMPLEX Qty: 7 0RF Rx Instructions: 25 mg twice daily for next 2 days followed by once daily for for 2 days and then stop oxycodone 5 mg Tablet 5 mg PO Q6H PRN (Reason: Moderate To Severe Pain) Qty: 12 0RF polysaccharide iron complex [Ferrex 150] 150 mg iron Capsule 150 mg PO BIDWM Qty: 60 0RF Continued fluticasone propionate 50 mcg/actuation spray,suspension 1 spray intranasal DAILY albuterol sulfate [Ventolin HFA] 90 mcg/actuation HFA aerosol inhaler 2 puff inhalation Q6H Qty: 18 5RF azelastine 137 mcg (0.1 %) aerosol,spray 1 spray intranasal DAILY lisinopril 10 mg tablet 10 mg PO DAILY Qty: 30 5RF atorvastatin 10 mg tablet 10 mg PO DAILY Qty: 30 2RF diazepam 2 mg tablet 2 mg PO BID PRN (Reason: anxiety) Qty: 30 1RF omeprazole 20 mg capsule,delayed release(DR/EC) 20 mg PO BID Qty: 60 5RF cetirizine 10 mg tablet,disintegrating 10 mg PO DAILY epinephrine [EpiPen] 0.3 mg/0.3 mL auto-injector 0.3 mg IM Q10M PRN (Reason: anaphylaxis) Qty: 2 2RF Rx Instructions: for 2 doses escitalopram oxalate 20 mg tablet 10 mg PO DAILY Discontinued sulfamethoxazole-trimethoprim [Bactrim DS] 800-160 mg tablet 1 tab PO BID 3 Days Qty: 6 0RF Discharge Orders: Discharge Order (Routine); Ordered 11/30/23 Ordered By: Cyril Beard Other Ambulatory Orders: DME: Walker (Order) Location: None Selected Ordered By: Osman Myers Referrals: Sonal Crook MD [Physician] - 12/15/23 2:30 pm Discharge Diet: Regular Discharge Activity: Limit activity as instructed, Use walker/crutches as instructed and As per PT/OT instructions Patient Instructions: Opioid Safety Activity Restrictions/Additional Instructions: Maintain dressing until it comes off on its own. Posterior hip precautions as you were trained in the hospital. Gait training, ambulation, and strengthening per physical therapy. Ice to right hip. Please try to avoid alcohol intake. Specially while being on Librium. You will be on 25 mg twice daily for next 2 days followed by 25 mg once daily for 2 days and then stop. Please follow-up with your primary care provider within next 1 week. Discharge Attestations Time Spent in Discharge Care*: greater than 30 min Specific Discharge Activities: educating patient, educating and/or supporting family/caregiver, discussing with pcp/other providers, discussing with case packer and sealer/social workers/dc planners, documenting/other paperwork and evaluating patient/reviewing data Quality Metrics Clinical Quality Measures [ No reported AMI, CVA or VTE this stay] Coding Level of Care Code 50130 Total time (in minutes) for Discharge: 60 Diagnoses Primary osteoarthritis of right hip M16.11
--- NOTE | 2023-11-30 16:48 | PC.NURSE ---
Discharge Note Patient discharged home accompanied by . Discharge instructions reviewed with patient and . Prescriptions sent to patient preferred pharmacy. Belongings & home medications returned. Upon discharge patient alert/oriented x4 on room air. Surgical incision noted to right hip, no other wounds or skin issues noted up9on discharge.
== END 2023-11-30 16:35 | disposition home or self-care (01) | DRG 470 ==
LOC: MEDSURG 14:41 → ICU 11-28 17:51
PROVIDERS: Anesthesiology; Internal Medicine; Admitting Provider Specialist; PCP Nurse Practitioner Family; Visit Provider Student in an Organized Health Care Education/Training Program
PROC: 0SR90JZ Replacement of Right Hip Joint with Synthetic Substitute, Open Approach (ICD-10-PCS; CPT 27130; principal; 2023-11-26 10:35)
DX: M16.11 Unilateral primary osteoarthritis, right hip (principal); F10.231 Alcohol dependence with withdrawal delirium; G31.2 Degeneration of nervous system due to alcohol; F41.9 Anxiety disorder, unspecified; F32.A Depression, unspecified; K21.9 Gastro-esophageal reflux disease without esophagitis; F17.210 Nicotine dependence, cigarettes, uncomplicated
CPT/HCPCS: 36415; 51702; 72170; 73502; 80048; 80076; 81025; 82607; 83540; 83550; 83735; 84443; 85025; 87806; 88305; 94640; 96372; 96374; 96376; 97110; 97116; 97161; 97166; 97530; 97535; C1713; C1776; G0378; J0131; J0690; J1170; J2060; J2250; J2405; J3010; J3370; J3411; J3475; J3490; J7030; J7050; J7613; Q3014

== ENCOUNTER 2023-12-06 16:34 | Emergency (ER) | payer MEDICAID, SELFPAY ==
[2023-12-06 16:50] VITALS: BP 113/65; PULSE 66; RESP 16; TEMP 36.7; O2SAT 99
--- NOTE | 2023-12-06 17:09 | USR_ITS ---
PROCEDURE INFORMATION: Exam: US Duplex Right Lower Extremity Veins, Limited Exam date and time: 12/06/2023 5:51 PM Age: 43 years old Clinical indication: Pain; Swelling (edema) of limb; Lower extremity, right; Leg, lower; Prior surgery; Surgery date: 3-7 days post-operative; Surgery type: RT hip surg; Additional info: Pain swelling TECHNIQUE: Imaging protocol: Real-time duplex ultrasound of the right extremity with 2-D de luna scale, color Doppler flow and spectral waveform analysis including responses to compression and other maneuvers (when performed) with image documentation. Limited exam was focused on the right lower extremity veins. COMPARISON: MR knee RT wo con* [id number] 02/23/2023 9:09 AM FINDINGS: Right deep veins: Unremarkable. The common femoral, femoral, proximal profunda femoral and popliteal veins are patent without thrombus. Normal Doppler waveforms. Normal compressibility and/or augmentation response. Superficial veins: Greater saphenous vein at the saphenofemoral junction is patent without thrombus. Soft tissues: Prominent right inguinal lymph [place]. US/[place] [id number] IMPRESSION: No evidence of deep vein thrombosis.
[2023-12-06 18:34] VITALS: BP 114/67; PULSE 65; O2SAT 98
[2023-12-06 18:59] LABS: Basophils # 0.1 10^3/uL (0.0-0.1); Basophils % 1.4 %; Eosinophils # 0.3 10^3/uL (0.0-0.8); Eosinophils % 3.7 %; Hematocrit 26.7 % (36-47); Lymphocytes # 1.6 10^3/uL (0.8-4.8); Lymphocytes % 19.3 %; Mean Corpuscular HGB Conc 33.3 g/dL (30-55); Mean Corpuscular Hemoglobin 35.7 pg (27-33); Mean Corpuscular Volume 107.2 fl (85-98); Mean Platelet Volume 9.2 fL (7.4-10.4); Monocytes # 0.7 10^3/uL (0.2-0.9); Monocytes % 8.5 %; Neutrophils # 5.57 10^3/uL (1.8-7.7); Nucleated Red Blood Cells % 0 %; Platelet Count 507 10^3/cmm (157-399); Red Blood Count 2.49 10^6/uL (3.85-5.65); Red Cell Distribution Width 13.6 % (12.1-15.1); White Blood Count 8.44 10^3/uL (3.29-11.43)
[2023-12-06 19:17] LABS: Alanine Aminotransferase 10 U/L (0-33); Albumin Level 3.4 g/dL (3.5-5.2); Alkaline Phosphatase 68 U/L (35-105); Anion Gap 13.4 (5-19); Aspartate Amino Transferase 17 U/L (0-32); Blood Urea Nitrogen 10 mg/dL (6-20); Carbon Dioxide 27 mmol/L (22-29); Chloride 103 mmol/L (98-107); Globulin 2.9 g/dL (1.3-4.6); Glucose 110 mg/dL (65-115); Osmolality Calculated 288 mOsm/kg (285-295); Potassium 4.4 mmol/L (3.5-5.1); Sodium 139 mmol/L (136-145); Total Bilirubin 0.2 mg/dL (0.15-1.2); Total Protein 6.3 g/dL (6.6-8.7)
--- NOTE | 2023-12-06 19:31 | W.ED.EXTPRO ---
HPI - Extremity Problem General: Chief complaint: Extremity Problem,Nontraumatic Stated complaint: leg swelling post surgery 1week Time Seen by Provider: 12/06/23 17:09 History of Present Illness: 43-year-old female with a recent right total hip arthroplasty. She presents with increased right lower extremity swelling and pain. She notes she had been doing well, and as far as her hip, pain is still significantly improved from the first couple of days after her procedure. Today however, she noticed increased pain to the whole lower extremity with some swelling. No fever. No rash. No drainage. Associated symptoms: Deny chest pain or rash Review of Systems Card: Denies: chest pain Resp: Denies: dyspnea Skin/Breast: Denies: rash PFS ED PFSH: Medical History Encounter for pre-operative cardiovascular clearance Anxiety and depression GERD (gastroesophageal reflux disease) Hypertension Seizures Surgical History No significant past surgical history Social History Smoking and tobacco/nicotine status: current every day tobacco/nicotine user Alcohol intake: current Alcohol intake frequency: few times a month Substance/Drug Use: never Physical Exam Const: COMMON NORMALS: no acute distress GENERAL APPEARANCE: cooperative; not ill appearing and not frail appearing HENMT: COMMON NORMALS: normocephalic, atraumatic and Normal external nose present HEAD & SCALP: normocephalic and atraumatic FACE & SINUS: normal facial exam and face symmetric NOSE: Normal external nose present Eye: COMMON NORMALS: Equal, round and reactive pupils present and EOMs intact bilaterally PUPIL: Yes Equal, round and reactive pupils present Neck/C-Spine: GENERAL: Yes trachea midline Chest: CHEST: Yes Symmetrical chest wall rise Resp: COMMON NORMALS: normal respiratory effort, No retractions and No use of accessory muscles Cardio: COMMON NORMALS: regular rate and regular rhythm RATE: regular rate RHYTHM: regular rhythm GI: COMMON NORMALS: Normal to inspection, nondistended, normoactive bowel sounds present Extremity: COMMON NORMALS: no pedal edema Neuro: MARISSA COMA SCALE: document GCS findings [place] coma scale eye opening: Spontaneous [place] coma scale verbal response: Orientated Marissa coma scale motor response: Obey commands [place] coma scale total score: 15 SENSORY EXAM: Yes extremities (intact) Psych: COMMON NORMALS: speech normal SPEECH: Yes normal speech Skin: COMMON NORMALS: no rashes or lesions noted GENERAL SKIN EXAM: no rashes or lesions noted Course Vital Signs: Vital signs: Vital Signs Temperature 98.0 F 12/06/23 16:50 Pulse Rate 73 12/06/23 19:49 Respiratory Rate 18 12/06/23 19:49 Blood Pressure 114/67 12/06/23 19:49 Pulse Oximetry 98 12/06/23 19:49 Oxygen Delivery Me thod Room Air 12/06/23 18:34 MDM - Extremity (Nontraumatic) Medical Decision Making 43-year-old female with right lower extremity pain and swelling after hip replacement. DVT venous Doppler is negative. Hemoglobin is 9, roughly stable from prior. Her MCV is actually high. CMP is unremarkable. she seems to be walking well in the room for a post op hip. she'll be allowed dc to outpt follow up. Lab Data 12/06/23 18:47 12/06/23 18:47 Radiology Impressions Venous Duplex 12/06/23 17:09 IMPRESSION: No evidence of deep vein thrombosis. Laboratory Results WBC 8.44 10^3/uL (3.29-11.43) 12/06/23 18:47 RBC 2.49 10^6/uL (3.85-5.65) L 12/06/23 18:47 Hgb 8.90 g/dL (11.27-16.99) L 12/06/23 18:47 Hct 26.7 % (36-47) L 12/06/23 18:47 MCV 107.2 fl (85-98) H 12/06/23 18:47 MCH 35.7 pg (27-33) H 12/06/23 18:47 MCHC 33.3 g/dL (30-55) 12/06/23 18:47 RDW 13.6 % (12.1-15.1) 12/06/23 18:47 Plt Count 507 10^3/cmm (157-399) H 12/06/23 18:47 MPV 9.2 fL (7.4-10.4) 12/06/23 18:47 Neut % (Auto) 66.0 % 12/06/23 18:47 Lymph % (Auto) 19.3 % 12/06/23 18:47 [place] % (Auto) 8.5 % 12/06/23 18:47 Eos % (Auto) 3.7 % 12/06/23 18:47 Baso % (Auto) 1.4 % 12/06/23 18:47 Neut # (Auto) 5.57 10^3/uL (1.8-7.7) 12/06/23 18:47 Lymph # (Auto) 1.6 10^3/uL (0.8-4.8) 12/06/23 18:47 [place] # (Auto) 0.7 10^3/uL (0.2-0.9) 12/06/23 18:47 Eos # (Auto) 0.3 10^3/uL (0.0-0.8) 12/06/23 18:47 Baso # (Auto) 0.1 10^3/uL (0.0-0.1) 12/06/23 18:47 Nucleated RBC % (auto) 0 % 12/06/23 18:47 Nucleated RBCs # 0.0 /100WBC 12/06/23 18:47 Sodium 139 mmol/L (136-145) 12/06/23 18:47 Potassium 4.4 mmol/L (3.5-5.1) 12/06/23 18:47 Chloride 103 mmol/L (98-107) 12/06/23 18:47 Carbon Dioxide 27 mmol/L (22-29) 12/06/23 18:47 Anion Gap 13.4 (5-19) 12/06/23 18:47 BUN 10 mg/dL (6-20) 12/06/23 18:47 Creatinine 0.5 mg/dL (0.5-0.9) 12/06/23 18:47 GFR Calculation 134.0 mL/min (90-130) H 12/06/23 18:47 Glucose 110 mg/dL (65-115) 12/06/23 18:47 Calculated Osmolality 288 mOsm/kg (285-295) 12/06/23 18:47 Calcium 8.0 mg/dL (8.5-10.5) L 12/06/23 18:47 Total Bilirubin 0.2 mg/dL (0.15-1.2) 12/06/23 18:47 AST 17 U/L (0-32) 12/06/23 18:47 ALT 10 U/L (0-33) 12/06/23 18:47 Alkaline Phosphatase 68 U/L (35-105) 12/06/23 18:47 Total Protein 6.3 g/dL (6.6-8.7) L 12/06/23 18:47 Albumin 3.4 g/dL (3.5-5.2) L 12/06/23 18:47 Globulin 2.9 g/dL (1.3-4.6) 12/06/23 18:47 All radiology interpretation(s) finalized by discharge Discharge Plan Discharge Patient Disposition: Home Clinical Impression: Primary osteoarthritis of right hip, S/P total right hip arthroplasty Condition: Stable Prescriptions: No Action fluticasone propionate 50 mcg/actuation spray,suspension 1 spray intranasal DAILY albuterol sulfate [Ventolin HFA] 90 mcg/actuation HFA aerosol inhaler 2 puff inhalation Q6H Qty: 18 5RF azelastine 137 mcg (0.1 %) aerosol,spray 1 spray intranasal DAILY lisinopril 10 mg tablet 10 mg PO DAILY Qty: 30 5RF atorvastatin 10 mg tablet 10 mg PO DAILY Qty: 30 2RF diazepam 2 mg tablet 2 mg PO BID PRN (Reason: anxiety) Qty: 30 1RF chlordiazepoxide HCl 10 mg capsule 10 mg PO BID PRN (Reason: anxiety) 2 Days Qty: 4 0RF omeprazole 20 mg capsule,delayed release(DR/EC) 20 mg PO BID Qty: 60 5RF cetirizine 10 mg tablet,disintegrating 10 mg PO DAILY epinephrine [EpiPen] 0.3 mg/0.3 mL auto-injector 0.3 mg IM Q10M PRN (Reason: anaphylaxis) Qty: 2 2RF Rx Instructions: for 2 doses escitalopram oxalate 20 mg tablet 10 mg PO DAILY chlordiazepoxide HCl 25 mg Capsule See Rx Instructions .ROUTE .COMPLEX Qty: 7 0RF Rx Instructions: 25 mg twice daily for next 2 days followed by once daily for for 2 days and then stop Ferrex 150 150 mg iron Capsule 150 mg PO BIDWM Qty: 60 0RF oxycodone 5 mg Tablet 5 mg PO Q6H PRN (Reason: Moderate To Severe Pain) Qty: 12 0RF Discharge Orders: Discharge ED (Routine); Ordered 12/06/23 Ordered By: Aneudy Duncan Referrals: Madeline Iyer FNP [Primary Care Provider] - Patient Instructions: Opioid Safety, Pain Management Activity Restrictions/Additional Instructions: Return for worsening swelling or pain to the right lower extremity. Try elevating more for the next 24 to 48 hours, and ice may help with swelling as well. See your doctor this week Coding Level of Care Code ED Nuclear Chemistry Technician for Tracey Rodriguez
[2023-12-06 19:49] VITALS: BP 114/67; PULSE 73; RESP 18; O2SAT 98
== END 2023-12-06 19:51 | disposition home or self-care (01) ==
PROVIDERS: Family Medicine; Emergency Provider Emergency Medicine; PCP Nurse Practitioner Family
DX: M16.11 Unilateral primary osteoarthritis, right hip (principal); Z96.641 Presence of right artificial hip joint; I10 Essential (primary) hypertension; Z72.0 Tobacco use
CPT/HCPCS: 36415; 80053; 85025; 93971; 99284

== ENCOUNTER 2023-12-29 06:00 | Outpatient (RCR) | payer MEDICAID, SELFPAY | END 2024-01-01 23:59 | disposition home or self-care (01) | LOC: TPT 06:00 | PROVIDERS: PCP Nurse Practitioner Family; Visit Provider Specialist | DX: M25.551 Pain in right hip (principal); G89.29 Other chronic pain; Z96.641 Presence of right artificial hip joint | CPT/HCPCS: 97162 ==

== ENCOUNTER 2023-12-31 08:30 | Outpatient (CLI) | payer MEDICAID, SELFPAY ==
--- NOTE | 2023-12-31 08:30 | USCV_ITS ---
Kailyn Felix Age: 43 Gender: F : 1980 Exam Date: 12/31/2023 08:34 Ordering Phys: Justus Mota MD Technologist: R [place] [facility] [place]: Risk Factors: Previous Vascular Surgery: Right Brachial BP: / Left Brachial BP: / Right Left Velocity (cm/s) Spectral Plaque Velocity (cm/s) Spectral Plaque Syst/Diast Broadening Syst/Diast Broadening 68.90/ 17.70 Prox CCA 84.60 / 25.10 Hetro 69.80/ 20.60 Mid CCA 62.90 / 21.50 Hetro 69.80/ 27.10 Distal CCA 63.60 / 20.00 Hetro 47.80/ 23.10 Prox ICA 57.70 / 20.60 56.10/ 24.90 Mid ICA 58.20 / 11.90 85.40/ 30.90 Distal ICA 56.60 / 11.90 67.20 ECA 1.20 ICA/CCA 0.90 Antegrade Vertebral Antegrade 43.00/ 12.40 cm/s / cm/s Tri Subclavian Tri 71.30 92.70 CONCLUSIONS Right ICA stenosis <50%. Mild atheromatous plaque right carotid bulb/ICA. Left ICA stenosis <50%. Mild atheromatous plaque left carotid bulb/ICA. Intimal thickening in the common carotid arteries and internal carotid arteries bilaterally. Normal antegrade Doppler flow noted in the right vertebral artery. Normal antegrade Doppler flow noted in the left vertebral artery. Andrew Cruz MD (Electronically Signed) Final Date: 04 January 2024 11:37 S
== END 2023-12-31 08:31 | disposition home or self-care (01) ==
LOC: RAD 08:31
PROVIDERS: PCP Nurse Practitioner Family; Visit Provider Psychiatry & Neurology Neurology
DX: R60.0 Localized edema (principal); R56.9 Unspecified convulsions; B34.9 Viral infection, unspecified
CPT/HCPCS: 73502; 93880

== ENCOUNTER 2024-01-02 06:00 | Outpatient (RCR) | payer MEDICAID, SELFPAY | END 2024-01-31 23:59 | disposition home or self-care (01) | LOC: TPT 06:00 | PROVIDERS: PCP Nurse Practitioner Family; Visit Provider Specialist | DX: M25.559 Pain in unspecified hip (principal); G89.29 Other chronic pain | CPT/HCPCS: 97110; 97116; 97140 ==

== ENCOUNTER → 2024-01-12 15:52 | Outpatient (BNVA) | payer MEDICAID, SELFPAY | PROVIDERS: PCP Nurse Practitioner Family; Visit Provider Nurse Practitioner Family | DX: R35.0 Frequency of micturition (principal) | CPT/HCPCS: 81003 ==

== ENCOUNTER → 2024-01-13 16:57 | Outpatient (BNVA) | payer MEDICAID, SELFPAY | PROVIDERS: PCP Nurse Practitioner Family; Visit Provider Nurse Practitioner Family | DX: R35.0 Frequency of micturition (principal) | CPT/HCPCS: 81025 ==

== ENCOUNTER → 2024-01-14 09:25 | Outpatient (BNVA) | payer MEDICAID, SELFPAY | PROVIDERS: PCP Nurse Practitioner Family; Visit Provider Nurse Practitioner Family | DX: I10 Essential (primary) hypertension (principal) | CPT/HCPCS: 80053; 80061; 82607; 83735; 84443; 85025 ==

== ENCOUNTER 2024-02-01 06:00 | Outpatient (RCR) | payer MEDICAID, SELFPAY | END 2024-03-02 23:59 | disposition home or self-care (01) | LOC: TPT 06:00 | PROVIDERS: PCP Nurse Practitioner Family; Visit Provider Specialist | DX: M25.551 Pain in right hip (principal); Z96.641 Presence of right artificial hip joint | CPT/HCPCS: 97110; 97116; 97140 ==

== ENCOUNTER → 2024-02-11 10:01 | Outpatient (BNVA) | payer MEDICAID, SELFPAY | PROVIDERS: PCP Nurse Practitioner Family; Visit Provider Nurse Practitioner Family | DX: R19.7 Diarrhea, unspecified (principal) | CPT/HCPCS: 87045; 87177; 87209; 87338; 87427; 87449; 87493 ==

== ENCOUNTER 2024-02-12 09:41 | Outpatient (CLI) | payer MEDICAID, SELFPAY ==
--- NOTE | 2024-02-12 09:46 | XRR_ITS ---
PROCEDURE INFORMATION: Exam: XR Left Knee Exam date and time: 02/12/2024 9:50 AM Age: 43 years old Clinical indication: Bilateral; Patient HX: Knees swells on medial aspect, neck cracks, knee pain while walking up stairs; Additional info: M25.561 - pain in right knee TECHNIQUE: Imaging protocol: Radiologic exam of the left knee. Views: 3 views. COMPARISON: No relevant prior studies available. FINDINGS: Bones/joints: Mild loss of joint space height the medial compartment of the left knee. No acute fracture. No dislocation. Normal bone mineralization. No joint effusion. There is a fabella in the soft tissues posterior to the knee. Soft tissues: No soft tissue swelling. No radiopaque foreign body. XR/XR knee LT 3V* [id number] IMPRESSION: 1. No acute fracture of the left knee. Followup radiographs recommended in 7-14 days if clinical concern for fracture persists. 2. Mild degenerative change at the medial compartment of the left knee.
--- NOTE | 2024-02-12 09:46 | XRR_ITS ---
PROCEDURE INFORMATION: Exam: XR Cervical Spine Exam date and time: 02/12/2024 9:50 AM Age: 43 years old Clinical indication: Pain; Cervicalgia; Additional info: M54.2 - cervicalgia TECHNIQUE: Imaging protocol: Radiologic exam of the cervical spine. Views: 2 or 3 views. COMPARISON: No relevant prior studies available. FINDINGS: Bones/joints: Vertebral body height is maintained. No subluxation. Normal bone mineralization. Small marginal osteophytes and mild loss of disc space height at C5-C6 and C6-C7. Moderate facet hypertrophy at C3-C4. Multilevel degenerative changes of varying severity in the visualized spine. Grade I anterolisthesis of C3 on C4, likely due to facet degenerative change. No acute fracture. Soft tissues: No prevertebral soft tissue swelling. No radiopaque foreign body. Lungs: Visualized lungs are clear. XR/XR cervical spine 3V* [id number] IMPRESSION: 1. No acute fracture of the cervical spine. CT scan would be recommended if there is continuing clinical concern for fracture. 2. Degenerative changes in the cervical spine. 3. Grade I anterolisthesis of C3 on C4, likely due to facet degenerative change.
--- NOTE | 2024-02-12 09:46 | XRR_ITS ---
PROCEDURE INFORMATION: Exam: XR Right Knee Exam date and time: 02/12/2024 9:50 AM Age: 43 years old Clinical indication: Bilateral; Patient HX: Knees swells on medial aspect, neck cracks, knee pain while walking up stairs; Additional info: M25.561 - pain in right knee TECHNIQUE: Imaging protocol: Radiologic exam of the right knee. Views: 3 views. COMPARISON: CR XR knees AP WB w RT lmt ORTH 04/01/2023 10:44 AM FINDINGS: Bones/joints: No acute fracture. No dislocation. Normal bone mineralization. No joint effusion. Joint spaces are maintained. Soft tissues: No soft tissue swelling. No radiopaque foreign body. XR/XR knee RT 3V* [id number] IMPRESSION: Negative radiographs of the right knee. Followup imaging recommended in 7-14 days if clinical concern for fracture persists.
== END 2024-02-12 09:42 | disposition home or self-care (01) ==
LOC: RAD 09:42
PROVIDERS: PCP Nurse Practitioner Family; Visit Provider Nurse Practitioner Family
DX: M43.12 Spondylolisthesis, cervical region (principal); M48.02 Spinal stenosis, cervical region; M25.561 Pain in right knee; M25.562 Pain in left knee
CPT/HCPCS: 72040; 73562

== ENCOUNTER 2024-03-09 12:58 | Outpatient (CLI) | payer MEDICAID, SELFPAY ==
--- NOTE | 2024-03-09 13:00 | MR_ITS ---
WS: [id number] MRI CERVICAL SPINE NONCONTRAST TECHNIQUE: Sagittal T1, T2 and STIR imaging. Axial T2, gradient, and fiesta imaging. CLINICAL INFORMATION: M54.2 - Cervicalgia COMPARISON: None. FINDINGS: Straightening of the normal cervical lordosis. Slight anterolisthesis C3 on C4. Cord signal is normal . Small vessel changes in the robina. C2-C3: Mild facet arthropathy. Spinal canal and foramen are patent. C3-C4: Slight anterolisthesis C3 on C4. Moderate facet arthropathy. Moderate RIGHT and no significant LEFT foraminal narrowing. C4-C5: Disc osteophyte complex with endplate ridging. Moderate facet arthropathy. Mild LEFT foraminal narrowing. Spinal canal is patent. C5-C6: Disc osteophyte complex with endplate ridging. Mild central canal stenosis. Moderate LEFT and mild RIGHT bony foraminal narrowing. Moderate facet arthropathy. C6-C7: Disc osteophyte complex with endplate ridging. Mild bilateral bony foraminal narrowing. Spinal canal is patent. Mild facet arthropathy. C7-T1: Shallow central protrusion. Mild to moderate LEFT and no significant RIGHT foraminal narrowing . Spinal canal is patent. Visualized brain stem structures: Normal. Prevertebral soft tissues: Normal. MR/MR cervical spin wo con* [id number] IMPRESSION: 1. Straightening of the normal cervical lordosis. Slight anterolisthesis C3 on C4. 2. Cord signal is normal. No high-grade central canal stenosis. 3. Multilevel mild to moderate bony foraminal narrowing worse at RIGHT C3-4, L EFT C5-C6, and LEFT C7-T1. 4. Otherwise mild bony foraminal narrowing described above. 5. Moderate facet arthropathy C3-C4 C4-C5 and C5-C6. 6. Disc osteophyte complex C5-C6 with mild central canal stenosis.
== END 2024-03-09 12:59 | disposition home or self-care (01) ==
PROVIDERS: PCP Nurse Practitioner Family; Visit Provider Nurse Practitioner Family
DX: M54.2 Cervicalgia (principal); G89.29 Other chronic pain; M54.12 Radiculopathy, cervical region; M43.12 Spondylolisthesis, cervical region; M48.02 Spinal stenosis, cervical region; M47.812 Spondylosis without myelopathy or radiculopathy, cervical region; M25.78 Osteophyte, vertebrae
CPT/HCPCS: 72141

== ENCOUNTER 2024-03-11 09:14 | Emergency (ER) | payer MEDICAID, SELFPAY ==
[2024-03-11 10:40] VITALS: BP 140/80; PULSE 61; RESP 18; TEMP 36.3; O2SAT 100; BMI 27.4
--- NOTE | 2024-03-11 11:59 | ED_ITS ---
HPI - Neck Pain/Injury General: Chief Complaint: Neck Pain/Injury Stated Complaint: neck pain Time Seen by Provider: 03/11/24 09:22 History of Present Illness: 43-year-old female with a history of ast hma, hyperlipidemia, recent hip replacement and now with neck pain who presents to the emergency room with worsening neck pain. She had an MRI done 2 days ago. There were some abnormalities on this but no severe stenosis. She has been taking Celebrex. This does not seem to be helping. This was prescribed for her hip she says. No saddle numbness, no urinary retention or incontinence, no focal motor deficit, no sensory deficit. no recent fever. no cough. no shortness of breath. no chest pain. no abdominal pain. no nausea or vomiting. no dysuria. no altered mental status. no edema. She says the pain is in the center of her neck all the way up and radiates into the right side of her head. Review of Systems Narrative: Constitutional symptoms: Negative except as documented in HPI. Skin symptoms: Negative except as documented in HPI. Eye symptoms: Negative except as documented in HPI. ENMT symptoms: Negative except as documented in HPI. Respiratory symptoms: Negative except as documented in HPI. Cardiovascular symptoms: Negative except as documented in HPI. Gastrointestinal symptoms: Negative except as documented in HPI. Genitourinary symptoms: Negative except as documented in HPI. Musculoskeletal symptoms: Negative except as documented in HPI. Neurologic symptoms: Negative except as documented in HPI. Psychiatric symptoms: Negative except as documented in HPI. Endocrine symptoms: Negative except as documented in HPI. [facility] ED PFSH: Medical History Alcohol use disorder, mild, abuse Psychiatric care Encounter for pre-operative cardiovascular clearance Anxiety and depression GERD (gastroesophageal reflux disease) Hypertension Seizures Surgical History No significant past surgical history Social History Smoking and tobacco/nicotine status: current every day tobacco/nicotine user Alcohol intake: current Alcohol intake frequency: few times a month Substance/Drug Use: never Physical Exam Narrative: EXAM NARRATIVE: General: Alert, no acute distress. Skin: warm and dry Head: Normocephalic Neck: Trachea midline. Some paraspinal muscle tenderness but no focal bony tenderness. Eye: Extraocular movements are intact. Ears, nose, mouth and throat: Oral mucosa moist Respiratory: Respirations are non-labored Musculoskeletal: Normal ROM Neurological: Alert and oriented, No focal neurological deficit observed. Psychiatric: Cooperative, appropriate mood & affect. Course Vital Signs: Vital signs: Vital Signs Temperature 97.4 F L 03/11/24 10:40 Pulse Rate 61 03/11/24 10:40 Respiratory Rate 18 03/11/24 10:40 Blood Pressure 140/80 03/11/24 10:40 Pulse Oximetry 100 03/11/24 10:40 Oxygen Delivery Me thod Room Air 03/11/24 10:40 MDM - Neck Pain/Injury Medical Decision Making I reviewed the MRI that was done 2 days ago. I do not see any emergent findings on this. She has quite a bit of degenerative changes but no severe stenosis etc. Assessment and plan: Neck pain ? IM Toradol and IM Decadron in the emergency room. - Discharged home - Discussed plan with patient. Answered any questions. - Evaluation and treatment of this problem were appropriate in the emergency s etting. No radiology studies performed this visit Discharge Plan Discharge Patient Disposition: Home Clinical Impression: Cervical radiculopathy, Chronic neck pain Condition: Stable Prescriptions: New cyclobenzaprine 10 mg tablet 10 mg PO Q8H Qty: 20 0RF prednisone 20 mg tablet 60 mg PO DAILY Qty: 20 0RF Rx Instructions: 3 tabs (60 mg) x 3 days. 2 tabs (40 mg) x 3 days. 1 tab (20 mg) x 3 days. 1/2 tab (10 mg) x 4 days tramadol 50 mg tablet 50 mg PO Q8H PRN (Reason: pain) Qty: 20 0RF diclofenac sodium 50 mg tablet,delayed release (DR/EC) 50 mg PO BID PRN (Reason: pain) Qty: 14 0RF No Action fluticasone propionate 50 mcg/actuation spray,suspension 1 spray intranasal BID albuterol sulfate [Ventolin HFA] 90 mcg/actuation HFA aerosol inhaler 2 puff inhalation Q6H Qty: 18 5RF azelastine 137 mcg (0.1 %) aerosol,spray 1 spray intranasal DAILY nicotine 21-14-7 mg/24 hr patch, TD daily, sequential See Rx Instructions transdermal .COMPLEX Qty: 56 0RF Rx Instructions: apply 1-21 mg NICOTINE PATCH daily for 28 days; follow with 1-14 mg PATCH daily for 14 days, then 1-7mg PATCH daily for 14 days transdermal celecoxib 200 mg capsule 200 mg PO BID PRN (Reason: pain) Qty: 60 2RF oxybutynin chloride 15 mg tablet extended release 24hr 15 mg PO DAILY Qty: 30 0RF cetirizine 10 mg tablet,disintegrating 10 mg PO BID trazodone 50 mg tablet 100 mg PO .HS PRN (Reason: insomnia) Qty: 60 2RF escitalopram oxalate 20 mg tablet 20 mg PO DAILY Qty: 30 2RF atorvastatin 10 mg tablet 10 mg PO DAILY Qty: 30 2RF omeprazole 20 mg capsule,delayed release(DR/EC) See Rx Instructions .ROUTE .COMPLEX Qty: 60 5RF Dose Instruction: TAKE ONE CAPSULE BY MOUTH TWICE DAILY Rx Instructions: TAKE ONE CAPSULE BY MOUTH TWICE DAILY buspirone 10 mg tablet See Rx Instructions .ROUTE .COMPLEX Qty: 60 2RF Dose Instruction: TAKE ONE TABLET BY MOUTH TWICE DAILY Rx Instructions: TAKE ONE TABLET BY MOUTH TWICE DAILY epinephrine [EpiPen] 0.3 mg/0.3 mL auto-injector 0.3 mg IM Q10M PRN (Reason: anaphylaxis) Qty: 2 2RF Rx Instructions: for 2 doses Discharge Orders: Discharge ED (Routine); Ordered 03/11/24 Ordered By: Mariah Calvillo Referrals: Madeline Iyer FNP [Primary Care Provider] - Discharge Diet: Usual diet Discharge Activity: Increase activity as tolerated Patient Instructions: Cervical Radiculopathy (ED), Pain Management Activity Restrictions/Additional Instructions: Thank you for choosing [facility] for your healthcare needs today. Please realize this is an emergency room and that we are providing you with a medical screening exam and this may not be complete and all inclusive of all the testing and or work up that you may need to determine your ailment or severity of your illness. You have been screened and evaluated and felt safe for discharge. Health conditions do change or evolve sometimes and as such it is important that you follow up with your Primary Doctor to be re checked, 3-5 days is a general good time frame for follow up. You are always welcome to return to the ED for re assessment if your symptoms are worsening or you have new concerns Coding Level of Care Code ED Rn Spine for Tracey Rodriguez
[2024-03-11] MEDS: ketorolac 60 mg/2 mL INJ IM (12:06)
[2024-03-11] MEDS: dexamethasone 10 mg/mL INJ IM (12:06)
[2024-03-11 12:11] VITALS: PULSE 61; O2SAT 100
== END 2024-03-11 12:26 | disposition home or self-care (01) ==
PROVIDERS: Emergency Provider Emergency Medicine; PCP Nurse Practitioner Family
DX: M54.12 Radiculopathy, cervical region (principal); M47.892 Other spondylosis, cervical region; M54.2 Cervicalgia; G89.29 Other chronic pain
CPT/HCPCS: 96372; 99284; J1100; J1885

== ENCOUNTER → 2024-03-21 14:42 | Outpatient (BNVA) | payer MEDICAID, SELFPAY | PROVIDERS: PCP Nurse Practitioner Family; Visit Provider Specialist | DX: Z96.641 Presence of right artificial hip joint (principal) | CPT/HCPCS: 73502 ==

== ENCOUNTER → 2024-03-29 10:34 | Outpatient (BNVA) | payer MEDICAID, SELFPAY | PROVIDERS: PCP Nurse Practitioner Family; Visit Provider Orthopaedic Surgery | DX: M54.2 Cervicalgia (principal); G89.29 Other chronic pain | CPT/HCPCS: 72050 ==

== ENCOUNTER 2024-04-28 06:00 | Outpatient (RCR) | payer MEDICAID, SELFPAY | END 2024-05-02 23:59 | disposition home or self-care (01) | LOC: TPT 06:00 | PROVIDERS: Visit Provider Orthopaedic Surgery | DX: M54.2 Cervicalgia (principal); G89.29 Other chronic pain | CPT/HCPCS: 97162 ==

== ENCOUNTER 2024-05-03 06:30 | Outpatient (RCR) | payer MEDICAID, SELFPAY | END 2024-06-02 23:59 | disposition home or self-care (01) | LOC: TPT 06:30 | PROVIDERS: PCP Nurse Practitioner Family; Visit Provider Orthopaedic Surgery | DX: M54.2 Cervicalgia (principal); G89.29 Other chronic pain | CPT/HCPCS: 97110; 97140 ==

== ENCOUNTER 2024-06-03 06:00 | Outpatient (RCR) | payer MEDICAID, SELFPAY | END 2024-07-02 23:59 | disposition home or self-care (01) | LOC: TPT 06:00 | PROVIDERS: PCP Nurse Practitioner Family; Visit Provider Orthopaedic Surgery | DX: M54.2 Cervicalgia (principal); G89.29 Other chronic pain | CPT/HCPCS: 97110 ==

== ENCOUNTER 2024-06-20 08:54 | Emergency (ER) | payer MEDICAID, SELFPAY ==
--- NOTE | 2024-06-20 09:02 | ECG_ITS ---
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 Measurements Intervals [place] Rate: 82 P: 134 OR: 143 QRS: -17 QRSD: 102 T: 131 QT: 352 QTc: 413 Interpretive Statements SINUS RHYTHM LOW QRS VOLTAGE [QRS DEFLECTION < 0.5/1.0 mV IN LIMB/CHEST LEADS] MODERATE ST DEPRESSION [0.05+ mV ST DEPRESSION] in the high lateral leads, 1 and aVL ABNORMAL QRS-T ANGLE [QRS-T AXIS DIFFERENCE > 60] No previous ECG available for comparison Electronically Signed On 06-20-2024 19:28:36 BUILDING GUARD DEPUTY SHERIFF by Flaco Cano M.D. [email or web address]
--- NOTE | 2024-06-20 09:04 | XR_ITS ---
WS: [id number] Exam: XR chest 1V portable [id number] Date/Time of Exam: 06/20/2024 9:06 AM Reason For Exam: dyspnea/cough Comparison 10/19/2023. Lungs are clear and fully expanded. Normal cardiomediastinal silhouette. No pleural effusions. Thorac ic dextroscoliosis. XR/XR chest 1V portable [id number] IMPRESSION: 1. Negative chest.
[2024-06-20 09:06] VITALS: BP 153/96; PULSE 97; RESP 20; TEMP 36.7; O2SAT 98
--- NOTE | 2024-06-20 09:13 | ED_ITS ---
HPI - Chest Pain 2 General: Chief Complaint: Chest Pain Stated Complaint: cp sob Time Seen by Provider: 06/20/24 09:04 History of Present Illness: 44-year-old female presents emergency ro om complaining of retrosternal chest pain in the mid chest. It is not reproducible deep breathing or with palpation. Patient has had this for about 4 days she has not noticed anything that exacerbates or relieves it. She has had a bit of a productive cough no fever. Associated symptoms: Reports dyspnea; Deny abdominal pain or fever(s) Related Data Home Medications Medication Instructions Recorded Confirmed cetirizine 10 mg disintegrating 10 mg PO BID 02/25/24 06/20/24 tablet fluticasone propionate 50 1 spray intranasal BID 02/25/24 06/20/24 mcg/actuation nasal spray,suspension methocarbamol 500 mg tablet 500 mg PO TID 05/24/24 06/20/24 mirtazapine 15 mg tablet 15 mg PO BEDTIME 06/20/24 06/20/24 Previous Rx's Medication Instructions Recorded epinephrine 0.3 mg/0.3 mL 0.3 mg (0.3 mL) IM Q10M PRN 11/26/21 injection, auto-injector (EpiPen) anaphylaxis #2 ea albuterol sulfate 90 mcg/actuation 2 puff inhalation Q6H #18 grams 03/26/23 aerosol inhaler (Ventolin HFA) atorvastatin 10 mg tablet 10 mg PO DAILY #30 tabs 01/08/24 omeprazole 20 mg capsule,delayed See Rx Instructions .Route 02/03/24 release .COMPLEX #60 caps diclofenac sodium 50 mg 50 mg PO BID PRN pain #60 tabs 03/18/24 tablet,delayed release azelastine 137 mcg (0.1 %) nasal See Rx Instructions .Route 04/26/24 spray .COMPLEX #30 mL escitalopram oxalate 20 mg tablet 20 mg PO DAILY #30 tabs 05/24/24 (Lexapro) hydroxyzine HCl 50 mg tablet 50 mg PO QID PRN insomnaia/anxiety 05/24/24 #120 tabs doxycycline hyclate 100 mg capsule 100 mg PO BID 10 days #20 caps 06/20/24 ondansetron HCl 4 mg tablet 4 mg PO Q6H PRN nausea and 06/20/24 vomiting #20 tabs pantoprazole 40 mg tablet,delayed 40 mg PO BID 30 days #40 tabs 06/20/24 release Allergies Allergy/AdvReac Type Severity Reaction Status Date / Time No Known Allergies Allergy Verified 06/20/24 09:11 Review of Systems 2 Const: Denies: fever(s) or chills Card: Reports: chest pain Resp: Reports: dyspnea, productive cough and wheezing GI: Denies: abdominal pain : Denies: dysuria, urinary frequency or urinary urgency Musc: Denies: neck pain or back pain Skin/Breast: Denies: rash PFSH ED 2 PFSH: Medical History Alcohol use disorder, mild, abuse Psychiatric care Encounter for pre-operative cardiovascular clearance Anxiety and depression GERD (gastroesophageal reflux disease) Hypertension Seizures Surgical History No significant past surgical history Social History Smoking and tobacco/nicotine status: current every day tobacco/nicotine user Alcohol intake: current Alcohol intake frequency: few times a month Substance/Drug Use: never Physical Exam 2 Const: GENERAL APPEARANCE: cooperative ORIENTATION/CONSCIOUSNESS: Yes awake, Yes oriented to person, Yes oriented to place and Yes oriented to time HENMT: COMMON NORMALS: normocephalic, atraumatic and hearing grossly normal bilaterally HEAD & SCALP: normocephalic and atraumatic Resp: COMMON NORMALS: normal respiratory effort, No retractions and No use of accessory muscles AUSCULTATION: wheezes Cardio: COMMON NORMALS: regular rate, regular rhythm and No murmurs present (Cardio) RATE: regular rate RHYTHM: regular rhythm GI: COMMON NORMALS: Soft to palpation and No hepatosplenomegaly present A USCULTATION: Yes normoactive bowel sounds PALPATION: Yes Soft to palpation, No Tenderness to palpation present (GI), No Guarding due to palpation present (GI) and Yes No hepatosplenomegaly present Extremity: COMMON NORMALS: normal to inspection, capillary refill normal, no clubbing, cyanosis or edema, no calf tenderness and no pedal edema Neuro: SENSORIUM/ORIENTATION: Yes oriented to person, Yes oriented to place and Yes oriented to time Skin: COMMON NORMALS: no rashes or lesions noted GENERAL SKIN EXAM: no rashes or lesions noted Course 2 Vital Signs: Vital signs: Vital Signs Temperature 98.0 F 06/20/24 09:06 Pulse Rate 70 06/20/24 12:47 Respiratory Rate 20 H 06/20/24 09:06 Blood Pressure 142/93 06/20/24 12:47 Pulse Oximetry 97 06/20/24 12:47 Oxygen Delivery Me thod Room Air 06/20/24 12:47 MDM - Chest Pain Medical Decision Making Patient productive cough with nausea vomiting she complained primarily of chest x-ray of chest pain however she is not having further chest pain now cardiac enzymes and EKGs were normal. Discharge patient home to cover with antibiotics and she said the cough has been productive of her on doxycycline and albuterol. Stop the omeprazole and start pantoprazole 40 mg twice a day for 10 days then once daily after that. Follow-up with primary care. Patient not been tachycardic sats have been normal chest x-ray was negative. No signs of PE at this point. Medical Records I reviewed the patient's medical records. Lab Data I reviewed the patient's lab results. 06/20/24 10:10 06/20/24 10:10 Radiology Impressions Chest X-Ray 06/20/24 09:04 IMPRESSION: 1. Negative chest. Laboratory Results WBC 5.68 10^3/uL (3.29-11.43) 06/20/24 10:10 RBC 4.09 10^6/uL (3.85-5.65) 06/20/24 10:10 Hgb 12.20 g/dL (11.27-16.99) 06/20/24 10:10 Hct 37.4 % (36-47) 06/20/24 10:10 MCV 91.4 fl (85-98) 06/20/24 10:10 MCH 29.8 pg (27-33) 06/20/24 10:10 MCHC 32.6 g/dL (30-55) 06/20/24 10:10 RDW 15.3 % (12.1-15.1) H 06/20/24 10:10 Plt Count 220 10^3/cmm (157-399) 06/20/24 10:10 MPV 9.1 fL (7.4-10.4) 06/20/24 10:10 Neut % (Auto) 75.3 % 06/20/24 10:10 Lymph % (Auto) 17.8 % 06/20/24 10:10 Park % (Auto) 6.2 % 06/20/24 10:10 Eos % (Auto) 0.0 % 06/20/24 10:10 Baso % (Auto) 0.5 % 06/20/24 10:10 Neut # (Auto) 4.28 10^3/uL (1.8-7.7) 06/20/24 10:10 Lymph # (Auto) 1.0 10^3/uL (0.8-4.8) 06/20/24 10:10 Park # (Auto) 0.4 10^3/uL (0.2-0.9) 06/20/24 10:10 Eos # (Auto) 0.0 10^3/uL (0.0-0.8) 06/20/24 10:10 Baso # (Auto) 0.0 10^3/uL (0.0-0.1) 06/20/24 10:10 Nucleated RBC % (auto) 0 % 06/20/24 10:10 Nucleated RBCs # 0.0 /100WBC 06/20/24 10:10 Sodium 137 mmol/L (136-145) 06/20/24 10:10 Potassium 3.8 mmol/L (3.5-5.1) 06/20/24 10:10 Chloride 98 mmol/L (98-107) 06/20/24 10:10 Carbon Dioxide 25 mmol/L (22-29) 06/20/24 10:10 Anion Gap 17.8 (5-19) 06/20/24 10:10 BUN 6 mg/dL (6-20) 06/20/24 10:10 Creatinine 0.6 mg/dL (0.5-0.9) 06/20/24 10:10 GFR Calculation 108.1 mL/min (90-130) 06/20/24 10:10 Glucose 90 mg/dL (65-115) 06/20/24 10:10 Calculated Osmolality 281 mOsm/kg (285-295) L 06/20/24 10:10 Calcium 8.8 mg/dL (8.5-10.5) 06/20/24 10:10 Total Bilirubin 0.4 mg/dL (0.15-1.2) 06/20/24 10:10 AST 32 U/L (0-32) 06/20/24 10:10 ALT 26 U/L (0-33) 06/20/24 10:10 Alkaline Phosphatase 5 U/L (35-105) L 06/20/24 10:10 Troponin T Baseline < 6 ng/L (0-10) 06/20/24 10:10 Troponin T 120 Minute 6.00 ng/L (0-10) 06/20/24 12:38 Delta Troponin T [id number] ABS# (0-10) 06/20/24 12:38 Total Protein 6.8 g/dL (6.6-8.7) 06/20/24 10:10 Albumin 0.2 g/dL (3.5-5.2) L 06/20/24 10:10 Globulin 6.6 g/dL (1.3-4.6) H 06/20/24 10:10 Lipase 23 U/L (13-60) 06/20/24 10:10 Coronavirus (PCR) Negative (Negative) 06/20/24 09:30 Influenza A (PCR) Negative (Negative) 06/20/24 09:30 Influenza Type B (PCR) Negative (Negative) 06/20/24 09:30 RSV (PCR) Negative (Negative) 06/20/24 09:30 All radiology interpretation(s) finalized by discharge Discharge Plan Discharge Patient Disposition: Home Clinical Impression: GERD (gastroesophageal reflux disease), Bronchitis Condition: Stable Prescriptions: New doxycycline hyclate 100 mg capsule 100 mg PO BID 10 Days Qty: 20 0RF ondansetron HCl 4 mg tablet 4 mg PO Q6H PRN (Reason: nausea and vomiting) Qty: 20 0RF pantoprazole 40 mg tablet,delayed release (DR/EC) 40 mg PO BID 30 Days Qty: 40 0RF Rx Instructions: 1 pill twice a day for 10 days then 1 pill daily No Action fluticasone propionate 50 mcg/actuation spray,suspension 1 spray intranasal BID albuterol sulfate [Ventolin HFA] 90 mcg/actuation HFA aerosol inhaler 2 puff inhalation Q6H Qty: 18 5RF methocarbamol 500 mg tablet 500 mg PO TID escitalopram oxalate [Lexapro] 20 mg tablet 20 mg PO DAILY Qty: 30 2RF hydroxyzine HCl 50 mg tablet 50 mg PO QID PRN (Reason: insomnaia/anxiety) Qty: 120 2RF cetirizine 10 mg tablet,disintegrating 10 mg PO BID atorvastatin 10 mg tablet 10 mg PO DAILY Qty: 30 2RF omeprazole 20 mg capsule,delayed release(DR/EC) See Rx Instructions .ROUTE .COMPLEX Qty: 60 5RF Dose Instruction: TAKE ONE CAPSULE BY MOUTH TWICE DAILY Rx Instructions: TAKE ONE CAPSULE BY MOUTH TWICE DAILY diclofenac sodium 50 mg tablet,delayed release (DR/EC) 50 mg PO BID PRN (Reason: pain) Qty: 60 5RF azelastine 137 mcg (0.1 %) spray,non-aerosol See Rx Instructions .ROUTE .COMPLEX Qty: 30 5RF Dose Instruction: INSTILL ONE SPRAY IN EACH NOSTRIL TWICE DAILY DIRECTED; USE with flonase DIRECTED Rx Instructions: INSTILL ONE SPRAY IN EACH NOSTRIL TWICE DAILY DIRECTED; USE with flonase DIRECTED mirtazapine 15 mg tablet 15 mg PO BEDTIME epinephrine [EpiPen] 0.3 mg/0.3 mL auto-injector 0.3 mg IM Q10M PRN (Reason: anaphylaxis) Qty: 2 2RF Rx Instructions: for 2 doses Discharge Orders: Discharge ED (Routine); Ordered 06/20/24 Ordered By: Desmond Head Referrals: Madeline Iyer FNP [Primary Care Provider] - Discharge Diet: Usual diet Discharge Activity: Increase activity as tolerated Patient Instructions: Opioid Safety, Pain Management Activity Restrictions/Additional Instructions: Thank you for choosing [facility] for your healthcare needs today. It is very important that you follow up as instructed or that you return to the Emergency Department should you have concerns or if your condition changes or worsens in any way. You are seen in the emergency room with complaint of chest discomfort and coughing and vomiting. Your cardiac enzymes and EKG did not show any acute changes chest x-ray also appeared normal. Given history of productive cough we did give you a prescription for doxycycline use 1 twice a day for 10 days. Recommend stopping the omeprazole starting pantoprazole 1 tablet twice a day for 10 days then once daily. Coding Level of Care Code ED Multimedia Author for Tracey Rodriguez
[2024-06-20 09:20] VITALS: BP 153/96; PULSE 90; O2SAT 98
[2024-06-20 10:23] LABS: Basophils % 0.5 %; Hematocrit 37.4 % (36-47); Lymphocytes % 17.8 %; Mean Corpuscular HGB Conc 32.6 g/dL (30-55); Mean Corpuscular Hemoglobin 29.8 pg (27-33); Mean Corpuscular Volume 91.4 fl (85-98); Mean Platelet Volume 9.1 fL (7.4-10.4); Monocytes # 0.4 10^3/uL (0.2-0.9); Monocytes % 6.2 %; Neutrophils # 4.28 10^3/uL (1.8-7.7); Neutrophils % 75.3 %; Nucleated Red Blood Cells % 0 %; Platelet Count 220 10^3/cmm (157-399); Red Blood Count 4.09 10^6/uL (3.85-5.65); Red Cell Distribution Width 15.3 % (12.1-15.1); White Blood Count 5.68 10^3/uL (3.29-11.43)
[2024-06-20 10:42] LABS: Troponin(5th) Baseline < 6 ng/L (0-10)
[2024-06-20 10:48] LABS: Alanine Aminotransferase 26 U/L (0-33); Albumin Level 0.2 g/dL (3.5-5.2); Alkaline Phosphatase 5 U/L (35-105); Anion Gap 17.8 (5-19); Aspartate Amino Transferase 32 U/L (0-32); Blood Urea Nitrogen 6 mg/dL (6-20); Calcium 8.8 mg/dL (8.5-10.5); Carbon Dioxide 25 mmol/L (22-29); Chloride 98 mmol/L (98-107); Globulin 6.6 g/dL (1.3-4.6); Glomerular Filtration Rate 108.1 mL/min (90-130); Glucose 90 mg/dL (65-115); Lipase 23 U/L (13-60); Osmolality Calculated 281 mOsm/kg (285-295); Potassium 3.8 mmol/L (3.5-5.1); Sodium 137 mmol/L (136-145); Total Bilirubin 0.4 mg/dL (0.15-1.2); Total Protein 6.8 g/dL (6.6-8.7)
[2024-06-20 10:55] LABS: Covid PCR NEGATIVE (Negative); Influenza A NEGATIVE (Negative); Influenza B NEGATIVE (Negative); Respiratory Syncytial Virus Ce NEGATIVE (Negative)
--- NOTE | 2024-06-20 11:13 | ECG_ITS ---
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 Measurements Intervals [place] Rate: 68 P: 42 CO: 139 QRS: 35 QRSD: 111 T: 55 QT: 378 QTc: 403 Interpretive Statements SINUS RHYTHM WITH SINUS ARRHYTHMIA MODERATE INTRAVENTRICULAR CONDUCTION DELAY [110+ ms QRS DURATION] Compared to ECG 06/20/2024 09:02:43 Intraventricular conduction delay now present ST (T wave) deviation no longer present Electronically Signed On 06-20-2024 21:14:20 [employer] by Flaco Cano M.D. [email or web address]
[2024-06-20 11:31] VITALS: BP 137/91; PULSE 75; O2SAT 97
[2024-06-20 12:47] VITALS: BP 142/93; PULSE 70; O2SAT 97
[2024-06-20 13:01] LABS: Troponin 5 2HR Delta 0.00001 ABS# (0-10)
== END 2024-06-20 14:04 | disposition home or self-care (01) ==
PROVIDERS: Emergency Provider Family Medicine; PCP Nurse Practitioner Family
DX: K21.9 Gastro-esophageal reflux disease without esophagitis (principal); J40 Bronchitis, not specified as acute or chronic; Z11.52 Encounter for screening for COVID-19; Z72.0 Tobacco use; I10 Essential (primary) hypertension
CPT/HCPCS: 0241U; 36415; 71045; 80053; 83690; 84484; 85025; 93005; 99285

== ENCOUNTER 2024-07-03 06:00 | Outpatient (RCR) | payer MEDICAID, SELFPAY | END 2024-08-02 23:59 | disposition home or self-care (01) | LOC: TPT 06:00 | PROVIDERS: PCP Nurse Practitioner Family; Visit Provider Orthopaedic Surgery | DX: M54.2 Cervicalgia (principal); G89.29 Other chronic pain | CPT/HCPCS: 97110 ==

== ENCOUNTER → 2024-10-13 08:45 | Outpatient (BNVA) | payer MEDICAID, SELFPAY | PROVIDERS: PCP Nurse Practitioner Family; Visit Provider Orthopaedic Surgery | DX: M54.50 Low back pain, unspecified (principal); G89.29 Other chronic pain; M54.2 Cervicalgia; M54.6 Pain in thoracic spine; M54.12 Radiculopathy, cervical region | CPT/HCPCS: 72050; 72072; 72110 ==

== ENCOUNTER 2024-11-01 06:00 | Outpatient (RCR) | payer MEDICAID, SELFPAY | END 2024-11-30 23:59 | disposition home or self-care (01) | LOC: TPT 06:00 | PROVIDERS: Visit Provider Orthopaedic Surgery | DX: M54.50 Low back pain, unspecified (principal); G89.29 Other chronic pain | CPT/HCPCS: 97110; 97161 ==

== ENCOUNTER → 2024-11-28 12:54 | Outpatient (BNVA) | payer MEDICAID, SELFPAY | PROVIDERS: PCP Family Medicine; Visit Provider Specialist | DX: M16.11 Unilateral primary osteoarthritis, right hip (principal) | CPT/HCPCS: 73502 ==

== ENCOUNTER 2024-12-01 05:00 | Outpatient (RCR) | payer MEDICAID, SELFPAY | END 2024-12-31 23:59 | disposition home or self-care (01) | LOC: TPT 05:00 | PROVIDERS: PCP Family Medicine; Visit Provider Orthopaedic Surgery | DX: M54.50 Low back pain, unspecified (principal); G89.29 Other chronic pain | CPT/HCPCS: 97110 ==

== ENCOUNTER 2025-01-01 05:00 | Outpatient (RCR) | payer MEDICAID, SELFPAY | END 2025-01-30 23:59 | disposition home or self-care (01) | LOC: TPT 05:00 | PROVIDERS: PCP Family Medicine; Visit Provider Orthopaedic Surgery | DX: M54.50 Low back pain, unspecified (principal); G89.29 Other chronic pain | CPT/HCPCS: 97110 ==

== ENCOUNTER 2025-01-16 09:08 | Outpatient (CLI) | payer MEDICAID, SELFPAY ==
--- NOTE | 2025-01-16 09:30 | MR_ITS ---
WS: [id number] MRI LUMBAR SPINE NONCONTRAST HISTORY: Back Pain, back pain for 10 years. COMPARISON: 10/13/2024 radiograph TECHNIQUE: Sagittal and axial multisequence imaging is submitted. Mild degenerative disc disease at C5-6. 4 mm anterolisthesis of C3. Mild levoscoliosis lumbar spine Posterior alignment is normal. No fractures or marrow edema. Disc spaces and vertebral body heights are well-preserved. Conus terminates normally at L1-2 disc level. L1-L2: Asymmetric disc bulging with mild facet arthritis. Very mild LEFT foraminal stenosis. L2-L3: Mild asymmetric disc bulging to the LEFT. Mild ligamentum flavum and facet arthritis. Small amount of fluid in the RIGHT facet joint. Mild LEFT foraminal stenosis. L3-L4: Mild annular disc bulging and mild osteophytic ridging. Moderate ligamentum flavum and facet arthritis. There is a minimal disc encroachment upon the subarticular recesses. Moderate bilateral foraminal stenosis due to disc and facet and osteophyte disease. There is mild disc contact on the exiting L3 nerve roots. L4-L5: Mild annular disc bulging and mild osteophytic ridging. Bilateral foraminal disc osteophyte complexes causing moderate stenosis. There is contact on the exiting L4 nerve roots, RIGHT greater than LEFT. Moderate ligamentum flavum and facet arthritis. Fluid in the facet joints bilaterally. L5-S1: Mild annular disc bulging. Mild facet arthritis. Small amount of fluid in the facet joints bilaterally. Very mild bilateral foraminal stenosis. Slightly greater contact by disc osteophyte disease on the exiting LEFT L5 nerve root. LEFT ovarian cyst 3.5 cm. Several follicles are also noted within the ovary. Recent ultrasound from 12/29/2024 demonstrated a 4.1 cm LEFT ovarian cyst. MR/MR lumbar spine wo con* [id number] IMPRESSION: 1. No high-grade central or foraminal stenosis. 2. Mild levoscoliosis lumbar spine. 3. Mild LEFT foraminal stenosis at L1-2 and L2-3. 4. L3-4: Moderate bilateral foraminal stenosis due to disc and osteophyte dise ase. Mild disc contact on the exiting L3 nerve roots. 5. L4-5: Disc osteophyte contacting the exiting L4 nerve roots, RIGHT greater than LEFT. Fluid in the facet joints. 6. L5-S1: Mild bilateral foraminal stenosis with mild disc osteophyte contacti ng the nerve roots, greater involving the exiting LEFT L5 nerve root.
== END 2025-01-16 09:09 | disposition home or self-care (01) ==
PROVIDERS: PCP Family Medicine; Visit Provider Orthopaedic Surgery
DX: M48.061 Spinal stenosis, lumbar region without neurogenic claudication (principal); M25.78 Osteophyte, vertebrae; M48.07 Spinal stenosis, lumbosacral region
CPT/HCPCS: 72148

== ENCOUNTER → 2025-01-18 09:17 | Outpatient (BNVA) | payer MEDICAID, SELFPAY | PROVIDERS: PCP Family Medicine; Visit Provider Specialist | DX: M18.0 Bilateral primary osteoarthritis of first carpometacarpal joints (principal) | CPT/HCPCS: 73130 ==

== ENCOUNTER 2025-02-01 10:12 | Outpatient (CLI) | payer SELFPAY ==
--- NOTE | 2025-02-01 10:15 | MR_ITS ---
WS: [id number] MRI CERVICAL SPINE NONCONTRAST HISTORY: Neck pain COMPARISON: 03/09/2024 Technique: Multiplanar, multisequence noncontrast imaging of the cervical spine. Very slight straightening of the normal cervical lordosis. C3 anterolisthesis by 3 mm. C5 retrolisthesis by 3 mm. Disc spaces are narrowed and desiccated most significant at C4-5 and C5-6. Reactive marrow edema in the endplates of C5, C6 and C7. Signal within the cervical cord is normal. Visualized posterior fossa is unremarkable. Craniocervical junction, C1 and C2 relationship, odontoid process and soft tissues are normal. C2-C3: Normal. C3-C4: Moderate facet joint arthritis. Moderate RIGHT foraminal stenosis due to disc osteophyte disease. No change. C4-C5: Mild osteophytic ridging and facet arthritis. Minimal LEFT foraminal stenosis due to osteophytes. No change. C5-C6: Disc osteophyte complex resulting in mild central stenosis. Moderate LEFT and mild RIGHT facet foraminal stenosis predominantly due to disc osteophyte disease. C6-C7: Endplate osteophytic ridging. Mild bilateral foraminal stenosis due to osteophytes. Mild facet arthritis. C7-T1: Small central disc protrusion. Mild LEFT foraminal stenosis. Paraspinal soft tissue are normal. MR/MR cervical spin wo con* [id number] IMPRESSION: 1. Multilevel degenerative facet disease and osteophytic ridging. No significa nt progression of stenoses since the prior study. 2. No high-grade central stenosis. 3. Moderate RIGHT foraminal stenosis due due to disc osteophyte disease at C3- 4 is stable. 4. Minimal LEFT foraminal stenosis at C4-5 and C7-T1. 5. Moderate LEFT and mild RIGHT foraminal stenosis due to disc osteophyte dise ase and mild central stenosis at C5-6 is stable. 6. Mild foraminal stenosis at C6-7.
== END 2025-02-01 10:13 | disposition home or self-care (01) ==
LOC: RAD 10:15
PROVIDERS: PCP Family Medicine; Visit Provider Orthopaedic Surgery
DX: M47.812 Spondylosis without myelopathy or radiculopathy, cervical region (principal); M48.02 Spinal stenosis, cervical region; M25.78 Osteophyte, vertebrae
CPT/HCPCS: 72141

== ENCOUNTER → 2025-02-16 15:23 | Outpatient (BNVA) | payer MEDICAID, SELFPAY | PROVIDERS: PCP Family Medicine; Visit Provider Nurse Practitioner Women's Health | DX: Z12.4 Encounter for screening for malignant neoplasm of cervix (principal) | CPT/HCPCS: 87624 ==

== ENCOUNTER → 2025-02-22 10:24 | Outpatient (BNVA) | payer MEDICAID, SELFPAY | PROVIDERS: PCP Family Medicine; Visit Provider Nurse Practitioner Women's Health | DX: N83.292 Other ovarian cyst, left side (principal); N83.291 Other ovarian cyst, right side | CPT/HCPCS: 76830 ==

== ENCOUNTER → 2025-04-10 09:09 | Outpatient (BNVA) | payer MEDICAID, SELFPAY | PROVIDERS: PCP Family Medicine; Visit Provider Anesthesiology Pain Medicine | DX: M79.18 Myalgia, other site (principal); M47.812 Spondylosis without myelopathy or radiculopathy, cervical region; G89.29 Other chronic pain | CPT/HCPCS: 20553; 99214; J1010; J3490 ==

== ENCOUNTER → 2025-04-17 11:22 | Outpatient (BNVA) | payer MEDICAID, SELFPAY | PROVIDERS: PCP Family Medicine; Visit Provider Specialist | DX: Z01.818 Encounter for other preprocedural examination (principal) | CPT/HCPCS: 80053; 81001; 85025 ==

== ENCOUNTER 2025-04-25 13:43 | Day surgery (SDC) | payer MEDICAID, SELFPAY ==
[2025-04-25] VITALS (9 sets, daily range): BP systolic 128–162; BP diastolic 76–97; PULSE 70–86; RESP 16–17; TEMP 36.2–36.3; O2SAT 92–99; BMI 25.5
[2025-04-25 14:25] LABS: OR HCG Qualitative Urine Negative (Negative)
[2025-04-25] MEDS: acetaminophen 1,000 MG/100 ML PIGGYBACK 400 MG IV (14:29)
--- NOTE | 2025-04-25 14:54 | P.HPUD_ITS ---
Surgery/Procedure H&P Update DATE OF PROCEDURE: April 25, 2025 DATE H&P PERFORMED: 04/17/25 H&P UPDATE INFORMATION: I have reviewed H&P completed within last 30 days, I have examined patient prior to procedure, No changes to prior documentation, H&P is in [facility] EMR on date indicated and Risks and benefits of the procedure reviewed PLANNED PROCEDURE: Operation Date: 04/25/25 15:35 Proposed Procedures p RIGHT Carpal Tunnel Release(Right) - Sonal Crook MD s RIGHT Cubital Tunnel Release(Right) - Sonal Crook MD Related Problem List Diagnoses 1. Carpal tunnel syndrome on right: 2. Ulnar neuropathy at elbow of right upper extremity:
--- NOTE | 2025-04-25 15:03 | ANES.PREANE2 ---
Pre-Anesthetic Assessment Height/Weight: Height 1.63 m Weight 67.585 kg Temp Pulse Resp BP Pulse Ox O2 Del Method 97.2 F L 72 17 128/76 98 Room Air 04/25/25 14:04/25/25 14:04/25/25 14:04/25/25 14:04/25/25 14:04/25/25 14:09 Operation Date: 04/25/25 15:35 Proposed Procedures p RIGHT Carpal Tunnel Release(Right) - Sonal Crook MD s RIGHT Cubital Tunnel Release(Right) - Sonal Crook MD Familial anesthetic complications: None Was Beta Mirella taken within 24 hours: N/A Was Clonidine taken within 24 hours: N/A Last intake: Intake Last Liquid Date 04/25/25 Last Liquid Time 10:30 Last Solid Date 04/24/25 Last Solid Time 20:00 Social Alcohol (natlrexone) and Tobacco Exam alert, oriented x 3, clear to auscultation bilaterally and regular rate & rhythm Airway Mallampati: Class II Anesthetic Plan ASA status: 3 Anesthesia: General Risk of > 500 ml blood loss (7ml/kg in children): No Medications/Allergies Home Medications ?Medication ?Instructions ?Recorded ?Confirmed ?Last Taken ?Type epinephrine 0.3 mg/0.3 mL 0.3 mg (0.3 mL) IM Q10M PRN 11/26/21 04/24/25 Unknown Rx injection, auto-injector (EpiPen) anaphylaxis #2 ea albuterol sulfate 90 mcg/actuation 2 puff inhalation Q6H #18 grams 03/26/23 04/24/25 06/19/24 Rx aerosol inhaler (Ventolin HFA) atorvastatin 10 mg tablet 10 mg PO DAILY #30 tabs 01/08/24 04/24/25 04/24/25 Rx cetirizine 10 mg disintegrating 10 mg PO BID 02/25/24 04/24/25 04/24/25 History tablet diclofenac sodium 50 mg 50 mg PO BID PRN pain #60 tabs 03/18/24 04/24/25 04/24/25 Rx tablet,delayed release ondansetron HCl 4 mg tablet 4 mg PO Q6H PRN nausea and 06/20/24 04/24/25 Unknown Rx vomiting #20 tabs cyclobenzaprine 5 mg tablet 5 mg PO TID PRN muscle spasms 10/13/24 04/24/25 04/24/25 History pantoprazole 40 mg tablet,delayed 40 mg PO DAILY 10/13/24 04/24/25 04/24/25 History release escitalopram oxalate 20 mg tablet 20 mg PO DAILY #30 tabs 11/18/24 04/24/25 04/24/25 Rx (Lexapro) gabapentin 300 mg capsule 300 mg PO TID #90 caps 04/10/25 04/24/25 04/24/25 Rx naltrexone microspheres 380 mg 380 mg IM Q1-2M 04/24/25 04/24/25 04/12/25 History intramuscular suspension,extended release (Vivitrol) Allergies Allergy/AdvReac Type Severity Reaction Status Date / Time No Known Allergies Allergy Verified 04/25/25 14:08 Current Medications Generic Name Dose Route Start Last Admin Trade Name Freq PRN Reason Stop Dose Admin Sodium Chloride 1,000 mls @ 30 mls/hr 04/25/25 14:00 04/25/25 14:29 Sodium Chloride 0.9% IV 04/26/25 13:59 30 mls/hr .Q24H LEXII Administration PFSH Anesthesia Medical History (Updated 04/25/25 @ 14:56 by Sonal Crook MD) Hyperlipidemia Alcohol use disorder, severe, in early remission quit date 09/04/[address] Ratliff Hepatitis C antibody positive in blood negative viral load Primary osteoarthritis of right hip Ocular migraine Psychiatric care Dr. Ratliff GERD (gastroesophageal reflux disease) Hypertension Seizures last seizure 2021 Surgical History History of tubal ligation (~1996) Hx laparoscopic cholecystectomy (~2012) Hx of section (~2017) S/P total right hip arthroplasty Date of procedure: November 26, 2023 Diagnosis: Primary osteoarthritis right hip Procedure done: Right total hip arthroplasty Implants: The Madhav total hip system with a size 52 mm by E alpha code Trident II Tritanium cluster hole acetabular shell with fixation with 2 screws, and with an MDM liner size 42 mm inner diameter by E alpha code. A size 4 Accolade II 132? neck angle hip stem with a size 28 mm x -4 mm femoral head and a anglican MDM X3 insert size 28 mm x 42E Family History Grandmother Diabetes Mother Hyperlipidemia Hypertension Stroke Thyroid disease Denies family history of Colon cancer Ovarian cancer Prostate cancer Heart disease Breast cancer Uterine cancer Social History Smoking and tobacco/nicotine status: current every day tobacco/nicotine user (1 pack daily) Alcohol intake: current Alcohol intake frequency: few times a month Substance/Drug Use: never
[2025-04-25] MEDS: ceFAZolin 2,000 mg SDV 2000 MG IVP (15:37)
[2025-04-25] MEDS: BUPivacaine 0.5% INJ 30 mL INJECTION (16:05)
--- NOTE | 2025-04-25 17:10 | PM.OP ---
Operative Report Date of procedure: April 25, 2025 Pre-op diagnosis: Right cubital and carpal tunnel syndromes Post-op diagnosis: Right cubital and carpal tunnel syndromes Post-op findings: Significant inflammation of the median and ulnar nerves with compression across both Procedure done: Right cubital tunnel and right carpal tunnel releases Implants: None Specimens removed/disposition: None Pathology: None Surgeon: Sonal Crook MD Senior Cyber Intelligence Analyst: Venita Gunter, nurse practitioner, whose services were required for positioning of the arm particularly for the cubital tunnel release, protection of the ulnar nerve, completion of the surgery and draping. Anesthesia: General (Per LMA, ASA 3) Estimated blood loss (mL): 5 Tourniquet time (min): 52 (At 250 mmHg) IV fluids (mL): 1,600 Urine output (mL): 0 (No Leiva) Complications: None Findings: As noted above Condition: stable Disposition: PACU (Then return to same-day surgery for discharge to home) Brief History: This 45-year-old woman presented to the office complaining of symptoms consistent with ulnar and median nerve compression on the right. The patient had a nerve conduction study which demonstrated abnormal right ulnar nerve as well as abnormal right median nerve. After discussion in the office, the patient wished to proceed with operative intervention in the form of cubital tunnel release and carpal tunnel release. Risks and complications of the surgery were discussed with the patient. Consents were signed and questions were answered. Procedure: The patient was brought to the operating theater. The patient had a general esthesia per LMA, ASA 3. The tourniquet was elevated to 250 mmHg for a total tourniquet time of 52 minutes. The patient was also given Ancef preoperatively. The arm was then prepped and draped with DuraPrep in usual fashion with the arm draped free. A surgical pause was performed. At the time, the surgical pause, we confirmed the site and side of surgery. We also confirmed the patient's identity, appropriate and timely administration of preoperative antibiotics and preoperative surgical markings. Initially, attention was directed to the wrist for carpal tunnel release with plan for cubital tunnel release to follow. An incision was then made along the thenar crease. The incision crossed the wrist joint in a curvilinear fashion. Dissection continued through skin and soft tissues using a scalpel. The palmaris longus was identified along with the transverse carpal ligament. Each of these was released carefully to avoid injury to the median nerve. We were able to dissect gently into the carpal canal which was noted to be quite tight with significant compression across the median nerve. The nerve was visualized and was an hourglass shape. The canal was subsequently palpated to assure there was no bony encroachment upon the canal. There was a quite thickened fibrous tissue within the canal, and this was opened longitudinally as well. The canal was then palpated distally and proximally to assure that my small finger was passed easily without impingement. Finding this to be so, attention was directed to closure. The wound was irrigated with ropivacaine plain. It was then closed with 3-0 nylon in an interrupted mattress fashion. Attention was then directed to the elbow to complete the cubital tunnel release. When the patient was seen in the preoperative holding area, landmarks were marked. Incision was made slightly posterior to the ulnar nerve to protect it during the dissection. The incision was made over approximately a 4 to 5 inch area centered over the area between the medial epicondyle and the olecranon. The dissection was continued through skin and soft tissues carefully. We also incised the flexor aponeurosis over the ulnar nerve taking care to isolate the ulnar nerve and avoid injury to it. The aponeurotic band over the nerve was divided and the nerve was traced distally between the two heads of the flexor carpi ulnaris muscle. Care was taken to protect neurovascular structures as well as any branches of the nerve. The fasciotomy of the flexor carpi ulnaris was accomplished to a point where I could pass my finger along the nerve and not feel any area which compressed my small finger. The ulnar nerve was left lying in its bed and it was also evaluated proximally to assure there were no further bands of compression. Gently I was able to extend the release proximally as well to assure that once again I could pass a small finger without any obvious areas which compressed across the ulnar nerve. In this fashion, we had completed the release of the entire cubital tunnel without injury to the nerve. Hemostasis was obtained. The nerve was noted to be purplish and somewhat flattened consistent with compression in this area. Once we had completely released proximally and distally and were able to palpate and directly visualize the nerve, attention was directed to closure. We then passively extended and flexed the elbow to assure that the nerve remained in its cubital area. Subluxation of the nerve did not occur, and therefore, attention was directed to closure. Skin closure was the only closure accomplished in addition to the subcutaneous tissues. We closed the subcutaneous tissues with 2-0 Monocryl and subsequently closed the skin with a 4-0 Monocryl subcuticular stitch. After risk, dressings consisted of Dermabond, OpSite, fluffed fluffs, and soft roll. At the elbow, the dressing consisted of Dermabond, Steri-Strips, and soft roll. After the soft roll, the arm was wrapped with an Neville wrap from the hand to above the elbow. The patient was then placed in a sling. This was to protect them from range of motion. At the time of discharge, the patient was neurologically intact. There were no complications and no specimens. Procedure was well-tolerated and the patient will be discharged home to follow-up in the office as scheduled. There were no specimens and no complications. Related Problem List Diagnoses 1. Ulnar neuropathy at elbow of right upper extremity: 2. Carpal tunnel syndrome on right:
== END 2025-04-25 18:13 | disposition home or self-care (01) ==
PROVIDERS: PCP Family Medicine; Visit Provider Specialist
PROC: (CPT 64721; principal; 2025-04-25 15:25)
PROC: (CPT 64718; 2025-04-25 15:25)
DX: G56.01 Carpal tunnel syndrome, right upper limb (principal); G56.21 Lesion of ulnar nerve, right upper limb; K21.9 Gastro-esophageal reflux disease without esophagitis; E78.5 Hyperlipidemia, unspecified; F41.9 Anxiety disorder, unspecified; I10 Essential (primary) hypertension; R56.9 Unspecified convulsions; F17.210 Nicotine dependence, cigarettes, uncomplicated
CPT/HCPCS: 64718; 64721; 81025; J0131; J0690; J2250; J2405; J2704; J3010; J3490; J7030; J9999

== ENCOUNTER → 2025-05-17 10:40 | Outpatient (BNVA) | payer MEDICAID, SELFPAY | PROVIDERS: PCP Family Medicine; Visit Provider Specialist | DX: M16.12 Unilateral primary osteoarthritis, left hip (principal) | CPT/HCPCS: 73523 ==

== ENCOUNTER 2025-06-01 09:25 | Day surgery (SDC) | payer MEDICAID, SELFPAY ==
[2025-06-01] VITALS (9 sets, daily range): BP systolic 108–124; BP diastolic 58–82; PULSE 60–69; RESP 16–18; TEMP 36.1–36.4; O2SAT 96–99
[2025-06-01 09:45] LABS: OR HCG Qualitative Urine Negative (Negative)
[2025-06-01] MEDS: acetaminophen 1,000 MG/100 ML PIGGYBACK 400 MG IV (10:05)
--- NOTE | 2025-06-01 10:19 | ANES.PREANE2 ---
Pre-Anesthetic Assessment Height/Weight: Height 1.63 m Operation Date: 06/01/25 12:00 Proposed Procedures p LEFT Carpal Tunnel Release(Left) - Sonal Crook MD s LEFT Ulnar Nerve Decompression(Left) - Sonal Crook MD Familial anesthetic complications: Sore throat for 2 weeks after last Carpal tunnel performed here Was Beta Mirella taken within 24 hours: N/A Was Clonidine taken within 24 hours: N/A Last intake: > 8hrs Social No alcohol (hx etoh) and No tobacco Exam alert, oriented x 3, clear to auscultation bilaterally and regular rate & rhythm Airway Mallampati: Class I Dentition: full GI Gastroesophageal Reflux Disease Anesthetic Plan ASA status: 3 Anesthesia: General Risk of > 500 ml blood loss (7ml/kg in children): No Medications/Allergies Home Medications ?Medication ?Instructions ?Recorded ?Confirmed ?Last Taken ?Type epinephrine 0.3 mg/0.3 mL 0.3 mg (0.3 mL) IM Q10M PRN 11/26/21 06/01/25 Unknown Rx injection, auto-injector (EpiPen) anaphylaxis #2 ea atorvastatin 10 mg tablet 10 mg PO DAILY #30 tabs 01/08/24 06/01/25 05/28/25 Rx cetirizine 10 mg disintegrating 10 mg PO DAILY 02/25/24 06/01/25 05/29/25 History tablet diclofenac sodium 50 mg 50 mg PO BID PRN pain #60 tabs 03/18/24 06/01/25 05/29/25 Rx tablet,delayed release cyclobenzaprine 5 mg tablet 5 mg PO TID PRN muscle spasms 10/13/24 06/01/25 05/29/25 History pantoprazole 40 mg tablet,delayed 40 mg PO DAILY 10/13/24 06/01/25 05/29/25 History release escitalopram oxalate 20 mg tablet 20 mg PO DAILY #30 tabs 11/18/24 06/01/25 05/29/25 Rx (Lexapro) naltrexone microspheres 380 mg 380 mg IM .1XMONTH 04/24/25 06/01/25 04/12/25 History intramuscular suspension,extended release (Vivitrol) gabapentin 300 mg capsule 300 mg PO TID #90 caps 05/18/25 06/01/25 05/29/25 Rx albuterol sulfate 90 mcg/actuation 2 puff inhalation Q6H PRN 05/29/25 06/01/25 Unknown History aerosol inhaler (Ventolin HFA) Shortness Of Breath Allergies Allergy/AdvReac Type Severity Reaction Status Date / Time No Known Allergies Allergy Verified 06/01/25 08:43 Current Medications Generic Name Dose Route Start Last Admin Trade Name Freq PRN Reason Stop Dose Admin Sodium Chloride 1,000 mls @ 30 mls/hr 06/01/25 09:45 06/01/25 10:07 Sodium Chloride 0.9% IV 06/02/25 09:44 30 mls/hr .Q24H LEXII Administration PFSH Anesthesia Medical History Ulnar neuropathy at elbow of left upper extremity Left carpal tunnel syndrome Hyperlipidemia Alcohol use disorder, severe, in early remission quit date 09/04/[address] Ratliff Hepatitis C antibody positive in blood negative viral load Primary osteoarthritis of right hip Ocular migraine Psychiatric care Dr. Ratliff GERD (gastroesophageal reflux disease) Hypertension Seizures last seizure 2021 Surgical History S/P decompression of ulnar nerve at elbow Date of Surgery: 04/25/25 Surgery: Right ulnar nerve decompression. Surgeon: Dr. Ambreen MD S/P carpal tunnel release Date of Surgery: 04/25/25 Surgery: Right carpal tunnel release Surgeon: Dr. Ambreen MD History of tubal ligation (~1996) Hx laparoscopic cholecystectomy (~2012) Hx of section (~2017) S/P total right hip arthroplasty Date of procedure: November 26, 2023 Diagnosis: Primary osteoarthritis right hip Procedure done: Right total hip arthroplasty Implants: The [place] total hip system with a size 52 mm by E alpha code Trident II Tritanium cluster hole acetabular shell with fixation with 2 screws, and with an MDM liner size 42 mm inner diameter by E alpha code. A size 4 Accolade II 132? neck angle hip stem with a size 28 mm x -4 mm femoral head and a taoist MDM X3 insert size 28 mm x 42E Family History Grandmother Diabetes Mother Hyperlipidemia Hypertension Stroke Thyroid disease Denies family history of Colon cancer Ovarian cancer Prostate cancer Heart disease Breast cancer Uterine cancer Social History Smoking and tobacco/nicotine status: current every day tobacco/nicotine user (1 pack daily) Alcohol intake: current Alcohol intake frequency: few times a month Substance/Drug Use: never Female Reproductive History Date of last menstrual period: 05/22/25
--- NOTE | 2025-06-01 10:43 | W.PM.OPSUD ---
Surgery/Procedure H&P Update DATE OF PROCEDURE: June 01, 2025 DATE H&P PERFORMED: 05/30/25 H&P UPDATE INFORMATION: I have reviewed H&P completed within last 30 days, I have examined patient prior to procedure, Changes to prior documentation as noted here (Patient wishes to proceed only with left carpal tunnel release and not ulnar nerve release), H&P is in [facility] EMR on date indicated and Risks and benefits of the procedure reviewed PREOP DIAGNOSIS: Left carpal tunnel syndrome PLANNED PROCEDURE: Operation Date: 06/01/25 12:00 Proposed Procedures p LEFT Carpal Tunnel Release(Left) - Sonal Crook MD s LEFT Ulnar Nerve Decompression(Left) - Sonal Crook MD Related Problem List Diagnoses 1. Left carpal tunnel syndrome:
[2025-06-01] MEDS: ceFAZolin 2,000 mg SDV 2000 MG IVP (10:52)
[2025-06-01] MEDS: BUPivacaine 0.5% INJ 30 mL INJECTION (11:20)
--- NOTE | 2025-06-01 12:01 | P.OP_ITS ---
Operative Report Date of procedure: June 01, 2025 Pre-op diagnosis: Left carpal tunnel syndrome Post-op diagnosis: Left carpal tunnel syndrome Post-op findings: Compression across the carpal canal causing median nerve compression Procedure done: Left carpal tunnel release Implants: None Specimens removed/disposition: None Pathology: None Surgeon: Sonal Crook MD Hydrostatic Tubing Tester: None Anesthesia: General (Per LMA, ASA 3) Estimated blood loss (mL): 2 Tourniquet time (min): 16 (At 2050 mmHg) IV fluids (mL): 600 Urine output (mL): 0 (No Leiva) Complications: None Findings: As noted above Condition: stable Disposition: PACU (Then return to same-day surgery for discharge to home) Brief History: This 45-year-old woman was seen in the office initially complaining of bilateral upper extremity pain. She underwent prior right carpal tunnel release and cubital tunnel release, and she has done well from this. Initially, she wished to have left cubital and carpal tunnel releases, but on the morning of surgery, she stated that she did not feel that she was having ulnar nerve symptoms, and she only wanted to proceed with the carpal tunnel release. Risks and complica tions of this were explained to the patient. Consents have been previously signed, and these were changed to reflect the patient's decision. Procedure: The patient was brought to the operating theater. The patient had a general anesthesia per LMA, ASA 3. The tourniquet was elevated to 250 mmHg for a total tourniquet time of 16 minutes. The patient was also given Ancef 2 g preoperatively. The arm was then prepped and draped with DuraPrep in usual fashion with the arm draped free. A surgical pause was performed. At the time, the surgical pause, we confirmed the site and side of surgery. We also confirmed the patient's identity, appropriate and timely administration of preoperative antibiotics and preoperative surgical markings. An incision was then made along the thenar crease. The incision crossed the wrist joint in a curvilinear fashion. Dissection continued through skin and soft tissues using a scalpel. The palmaris longus was identified along with the transverse carpal ligament. Each of these was released carefully to avoid injury to the median nerve. We were able to dissect gently into the carpal canal which was noted to be quite tight with significant compression across the median nerve. The nerve was visualized and was an hourglass shape. The canal was subsequently palpated to assure there was no bony encroachment upon the canal. The canal was then palpated distally and proximally to assure that my small finger was passed easily without impingement. Finding this to be so, attention was directed to closure. The wound was irrigated with ropivacaine plain. It was then closed with 3-0 nylon in an interrupted mattress fashion. Sterile dressing was then placed consisting of Dermabond, OpSite, fluffed fluffs, sterile soft roll, and an Neville wrap. The tourniquet was released after 16 minutes. There were no complications. There were no specimens. The procedure was well tolerated. Plan is the patient will be discharged home. Related Problem List Diagnoses 1. Left carpal tunnel syndrome:
--- NOTE | 2025-06-01 12:55 | ANE.PACU2 ---
Inpatient post-anesthesia follow up: Airway intact: Yes Vital signs: Temperature 97.0 F Pulse Rate 60 Respiratory Rate 16 Blood Pressure 118/58 Pulse Oximetry 98 Oxygen Delivery Me thod Room Air Oxygen Flow Rate Fraction of Inspir ed Oxygen Hydration adequate: Yes Nausea and vomiting: No Pain level: 1 Mental status: Baseline
== END 2025-06-01 12:55 | disposition home or self-care (01) ==
PROVIDERS: Anesthesiology; PCP Family Medicine; Visit Provider Specialist
PROC: (CPT 64721; principal; 2025-06-01 11:50)
DX: G56.02 Carpal tunnel syndrome, left upper limb (principal); K21.9 Gastro-esophageal reflux disease without esophagitis; E78.5 Hyperlipidemia, unspecified; I10 Essential (primary) hypertension; F41.9 Anxiety disorder, unspecified; R56.9 Unspecified convulsions; F17.210 Nicotine dependence, cigarettes, uncomplicated
CPT/HCPCS: 64721; 72050; 81025; J0131; J0690; J1100; J1171; J2250; J2405; J2704; J3010; J3490; J7030; J9999

== ENCOUNTER 2025-08-01 10:43 | Day surgery (SDC) | payer MEDICAID, SELFPAY ==
--- NOTE | 2025-07-31 22:51 | W.PM.OPSFHP ---
Same Day Surgery H&P Indication for Procedure/HPI DATE OF PROCEDURE: July 31, 2025 CHIEF COMPLAINT/INDICATIONFOR SURGICAL PROCEDURE: abnormal uterine bleeding PREOP DIAGNOSIS: abnormal uterine bleeding PLANNED PROCEDURE: Operation Date: 08/01/25 12:15 Proposed Procedures p Hysteroscopy w/ Endometrial Sampling 32560 [id number] N93.9 N84.0(Not Applicable) - Wesley Sharif MD s POSSIBLE Endometrial Poylpectomy(Not Applicable) - Wesley Sharif MD Medications/Allergies* Home Medications ?Medication ?Instructions ?Recorded ?Confirmed ?Type cetirizine 10 mg disintegrating 10 mg PO DAILY 02/25/24 07/31/25 History tablet cyclobenzaprine 5 mg tablet 5 mg PO TID PRN muscle spasms 10/13/24 07/31/25 History pantoprazole 40 mg tablet,delayed 40 mg PO DAILY 10/13/24 07/31/25 History release naltrexone microspheres 380 mg 380 mg IM .1XMONTH 04/24/25 07/31/25 History intramuscular suspension,extended release (Vivitrol) albuterol sulfate 90 mcg/actuation 2 puff inhalation Q6H PRN 05/29/25 07/31/25 History aerosol inhaler (Ventolin HFA) Shortness Of Breath azelastine 137 mcg (0.1 %) nasal 1 spray intranasal BID 07/31/25 07/31/25 History spray diazepam 2 mg tablet 2 mg PO PRN 07/31/25 07/31/25 History phentermine 37.5 mg tablet 37.5 mg PO DAILY 07/31/25 07/31/25 History tramadol 50 mg tablet 50 mg PO Q6H 07/31/25 07/31/25 History Allergies/Adverse Reactions Allergy/AdvReac Type Severity Reaction Status Date / Time No Known Allergies Allergy Verified 07/17/25 09:35 Pertinent History/Comorbid Conditions* Medical History (Updated 07/13/25 @ 00:01 by JOHNATHAN Gusman) Ulnar neuropathy at elbow of left upper extremity Left carpal tunnel syndrome Hyperlipidemia Alcohol use disorder, severe, in early remission quit date 09/04/[address] Ratliff Hepatitis C antibody positive in blood negative viral load Primary osteoarthritis of right hip Ocular migraine Psychiatric care Dr. Ratliff GERD (gastroesophageal reflux disease) Hypertension Seizures last seizure 2021 Surgical History (Updated 07/13/25 @ 00:01 by JOHNATHAN Gusman) S/P carpal tunnel release Date of Surgery: 05/30/25 Surgery: Left carpal tunnel release Surgeon: Dr. Ambreen MD S/P decompression of ulnar nerve at elbow Date of Surgery: 04/25/25 Surgery: Right ulnar nerve decompression. Surgeon: Dr. Ambreen MD S/P carpal tunnel release Date of Surgery: 04/25/25 Surgery: Right carpal tunnel release Surgeon: Dr. Ambreen MD History of tubal ligation (~1996) Hx laparoscopic cholecystectomy (~2012) Hx of section (~2017) S/P total right hip arthroplasty Date of procedure: November 26, 2023 Diagnosis: Primary osteoarthritis right hip Procedure done: Right total hip arthroplasty Implants: The [place] total hip system with a size 52 mm by E alpha code Trident II Tritanium cluster hole acetabular shell with fixation with 2 screws, and with an MDM liner size 42 mm inner diameter by E alpha code. A size 4 Accolade II 132? neck angle hip stem with a size 28 mm x -4 mm femoral head and a moravian MDM X3 insert size 28 mm x 42E Family History (Updated 02/16/25 @ 14:17 by Alphonso Roy) Diabetes Grandmother Hyperlipidemia Mother Hypertension Mother Thyroid disease Mother Stroke Mother Denies family history of Colon cancer Ovarian cancer Prostate cancer Heart disease Breast cancer Uterine cancer Social History Smoking and tobacco/nicotine status: current every day tobacco/nicotine user Alcohol intake: current Alcohol intake frequency: few times a month Substance/Drug Use: never Pertinent Exam Findings alert, oriented x 3, clear to auscultation bilaterally and regular rate & rhythm Recommendations Surgery/Procedure today Coding Level of Care Code Acute Code for Chg Fwd
[2025-08-01] VITALS (10 sets, daily range): BP systolic 111–141; BP diastolic 65–109; PULSE 68–85; RESP 16–18; TEMP 36.3–36.8; O2SAT 96–100; BMI 25.5
[2025-08-01 11:07] LABS: OR HCG Qualitative Urine Negative (Negative)
--- NOTE | 2025-08-01 11:31 | W.PM.OPSUD ---
Surgery/Procedure H&P Update DATE OF PROCEDURE: August 01, 2025 DATE H&P PERFORMED: 07/31/25 H&P UPDATE INFORMATION: I have reviewed H&P completed within last 30 days, I have examined patient prior to procedure and No changes to prior documentation PREOP DIAGNOSIS: abnormal uterine bleeding PLANNED PROCEDURE: Operation Date: 08/01/25 12:15 Proposed Procedures p Hysteroscopy w/ Endometrial Sampling [id number] N93.9 N84.0(Not Applicable) - Wesley Sharif MD s POSSIBLE Endometrial Poylpectomy(Not Applicable) - Wesley Shairf MD
--- NOTE | 2025-08-01 12:05 | ANES.PREANE2 ---
Pre-Anesthetic Assessment Height/Weight: Height 1.63 m Weight 67.585 kg Temp Pulse Resp BP Pulse Ox O2 Del Method 97.4 F L 68 18 117/65 99 Room Air 08/01/25 11:17 08/01/25 11:17 08/01/25 11:17 08/01/25 11:17 08/01/25 11:17 08/01/25 11:17 Preop Diagnosis: abnormal uterine bleeding Operation Date: 08/01/25 12:15 Proposed Procedures p Hysteroscopy w/ Endometrial Sampling [id number] N93.9 N84.0(Not Applicable) - Wesley Sharif MD s POSSIBLE Endometrial Poylpectomy(Not Applicable) - Wesley Sharif MD Familial anesthetic complications: None Was Beta Mirella taken within 24 hours: N/A Was Clonidine taken within 24 hours: N/A Last intake: Intake Last Liquid Date 07/31/25 Last Liquid Time 23:00 Last Solid Date 07/31/25 Last Solid Time 23:00 Social No alcohol and No tobacco et oh on natrelxone Exam alert, oriented x 3, clear to auscultation bilaterally and regular rate & rhythm Airway Mallampati: Class I Dentition: full CV/HEM Hypertension GI Gastroesophageal Reflux Disease Metabolic hep c history Neuropsych Seizure Anesthetic Plan ASA status: 2 Anesthesia: General Risk of > 500 ml blood loss (7ml/kg in children): No Medications/Allergies Home Medications ?Medication ?Instructions ?Recorded ?Confirmed ?Last Taken ?Type epinephrine 0.3 mg/0.3 mL 0.3 mg (0.3 mL) IM Q10M PRN 11/26/21 07/31/25 Unknown Rx injection, auto-injector (EpiPen) anaphylaxis #2 ea atorvastatin 10 mg tablet 10 mg PO DAILY #30 tabs 01/08/24 07/31/25 07/31/25 Rx cetirizine 10 mg disintegrating 10 mg PO DAILY 02/25/24 07/31/25 07/31/25 History tablet diclofenac sodium 50 mg 50 mg PO BID PRN pain #60 tabs 03/18/24 07/31/25 07/30/25 Rx tablet,delayed release cyclobenzaprine 5 mg tablet 5 mg PO TID PRN muscle spasms 10/13/24 07/31/25 07/31/25 History pantoprazole 40 mg tablet,delayed 40 mg PO DAILY 10/13/24 07/31/25 08/01/25 History release escitalopram oxalate 20 mg tablet 20 mg PO DAILY #30 tabs 11/18/24 07/31/25 08/01/25 Rx (Lexapro) naltrexone microspheres 380 mg 380 mg IM .1XMONTH 04/24/25 07/31/25 07/05/25 History intramuscular suspension,extended release (Vivitrol) albuterol sulfate 90 mcg/actuation 2 puff inhalation Q6H PRN 05/29/25 07/31/25 Unknown History aerosol inhaler (Ventolin HFA) Shortness Of Breath gabapentin 300 mg capsule 300 mg PO TID #90 caps 07/03/25 07/31/25 07/31/25 Rx azelastine 137 mcg (0.1 %) nasal 1 spray intranasal BID 07/31/25 07/31/25 Unknown History spray diazepam 2 mg tablet 2 mg PO PRN 07/31/25 07/31/25 Unknown History phentermine 37.5 mg tablet 37.5 mg PO DAILY 07/31/25 07/31/25 Unknown History tramadol 50 mg tablet 50 mg PO Q6H 07/31/25 07/31/25 Unknown History Allergies Allergy/AdvReac Type Severity Reaction Status Date / Time No Known Allergies Allergy Verified 07/17/25 09:35 Current Medications Generic Name Dose Route Start Last Admin Trade Name Freq PRN Reason Stop Dose Admin Sodium Chloride 1,000 mls @ 30 mls/hr 08/01/25 11:00 08/01/25 11:24 Sodium Chloride 0.9% IV 08/02/25 10:59 30 mls/hr .Q24H LEXII Administration PFSH Anesthesia Medical History Ulnar neuropathy at elbow of left upper extremity Left carpal tunnel syndrome Hyperlipidemia Alcohol use disorder, severe, in early remission quit date 09/04/[address] Ratliff Hepatitis C antibody positive in blood negative viral load Primary osteoarthritis of right hip Ocular migraine Psychiatric care Dr. Ratliff GERD (gastroesophageal reflux disease) Hypertension Seizures last seizure 2021 Surgical History S/P carpal tunnel release Date of Surgery: 05/30/25 Surgery: Left carpal tunnel release Surgeon: Dr. Ambreen MD S/P decompression of ulnar nerve at elbow Date of Surgery: 04/25/25 Surgery: Right ulnar nerve decompression. Surgeon: Dr. Ambreen MD S/P carpal tunnel release Date of Surgery: 04/25/25 Surgery: Right carpal tunnel release Surgeon: Dr. Ambreen MD History of tubal ligation (~1996) Hx laparoscopic cholecystectomy (~2012) Hx of section (~2017) S/P total right hip arthroplasty Date of procedure: November 26, 2023 Diagnosis: Primary osteoarthritis right hip Procedure done: Right total hip arthroplasty Implants: The [place] total hip system with a size 52 mm by E alpha code Trident II Tritanium cluster hole acetabular shell with fixation with 2 screws, and with an MDM liner size 42 mm inner diameter by E alpha code. A size 4 Accolade II 132? neck angle hip stem with a size 28 mm x -4 mm femoral head and a jew MDM X3 insert size 28 mm x 42E Family History Grandmother Diabetes Mother Hyperlipidemia Hypertension Stroke Thyroid disease Denies family history of Colon cancer Ovarian cancer Prostate cancer Heart disease Breast cancer Uterine cancer Social History Smoking and tobacco/nicotine status: current every day tobacco/nicotine user Alcohol intake: current Alcohol intake frequency: few times a month Substance/Drug Use: never
--- NOTE | 2025-08-01 12:55 | PM.OP ---
Operative Report Date of procedure: August 01, 2025 Pre-op diagnosis: abnormal uterine bleeding Post-op diagnosis: same Post-op findings: normal endometrial cavity and endocervix normal cervix and vagina No polyps / fibroids small amount of endometrial tissue Procedure done: hysteroscopy Curettage of uterus Implants: none Specimens removed/disposition: endometrial curettings Surgeon: Wesley Sharif MD Anesthesia: MAC Estimated blood loss (mL): 0 Complications: none Findings: see above Condition: stable Disposition: PACU Brief History: 45 y.o. with abnormal uterine bleeding Procedure: Patient was taken to the operating room. Anesthesia was induced. Patient was placed in dorsolithotomy position, prepped and draped for hysteroscopy. A bivalve speculum was placed in the vagina. The anterior lip of the cervix was grasped with a sharp-toothed tenaculum. The cervix was serially dilated with Hegar dilators. . A hysteroscope was placed into the endometrial cavity. The endometrial cavity was seen to be normal. There were no polyps or fibroids. There was a small amount of endometrial tissue. The hysteroscope was then removed. Endometrial curettage was done with a sharp curette. Endometrial tissue was sent to pathology. The sharp-toothed tenaculum was removed. There was no bleeding from the endometrial cavity or cervix. The patient was then placed supine and awakened and taken to the PACU. Postop condition: stable EBL: none Sponge and instruments counts were normal x 2 Complications: none
--- NOTE | 2025-08-01 14:10 | ANE.PACU2 ---
Inpatient post-anesthesia follow up: Airway intact: Yes Vital signs: Temperature 97.6 F Pulse Rate 68 Respiratory Rate 16 Blood Pressure 130/89 Pulse Oximetry 99 Oxygen Delivery Me thod Room Air Oxygen Flow Rate 8 Fraction of Inspir ed Oxygen Hydration adequate: Yes Nausea and vomiting: No Pain level: 1 Mental status: Baseline
== END 2025-08-01 14:08 | disposition home or self-care (01) ==
PROVIDERS: PCP Family Medicine; Visit Provider Obstetrics & Gynecology
PROC: 0UJD8ZZ Inspection of Uterus and Cervix, Via Natural or Artificial Opening Endoscopic (ICD-10-PCS; CPT 58555; principal; 2025-08-01 12:05)
DX: N93.9 Abnormal uterine and vaginal bleeding, unspecified (principal); I10 Essential (primary) hypertension; K21.9 Gastro-esophageal reflux disease without esophagitis; E78.5 Hyperlipidemia, unspecified; F41.9 Anxiety disorder, unspecified; R56.9 Unspecified convulsions; F17.200 Nicotine dependence, unspecified, uncomplicated
CPT/HCPCS: 58558; 81025; 88305; J1100; J1885; J2250; J2405; J2704; J3010; J7030; J9999